=== PATIENT | female | born 1935 | race Caucasian/White ===

== ENCOUNTER → 2016-10-21 | Outpatient (CLI) | payer OTHER ==
[~2016-10-21] MED LIST: ASPEC81 PO; ATEN-175 PO; CHOL100010 PO; GLC500 PO; GLIP10TA9 PO; HYDR12.55 PO; INSUINJ4 SQ; LOSA1TAB38 PO; OMEG10007 PO; PRLSR20 PO; TRVOPS OP
--- NOTE | 2016-10-21 14:09 | MAMMOGRAPHY REPORT ---
BILATERAL DIGITAL SCREENING MAMMOGRAM WITH CAD: 10/21/2016 TECHNIQUE: Current study was also evaluated with a Computer Aided Detection (CAD) system. Bilatera l CC and MLO views were obtained. COMPARISON: Comparison is made to exams dated: 10/19/2015 mammogram, 10/17/2014 mammogram, 10/12/2011 m ammogram, 10/16/2013 mammogram, 10/15/2012 mammogram, and 10/11/2010 mammogram - [facility] enter. BREAST COMPOSITION: There are scattered areas of fibroglandular density in both breasts. FINDINGS: No suspicious masses, calcifications, or areas of architectural distortion are noted in e ither breast. There has been no significant interval change compared to prior exams. Scattered bilat eral benign-appearing calcifications are not significantly changed. IMPRESSION: ACR BI-RADS CATEGORY 2: BENIGN There is no mammographic evidence of malignancy. A 1 year screening mammogram is recommended. The p atient will receive written notification of the results. Approximately 10% of breast cancers are not detected with mammography. A negative mammographic repor t should not delay biopsy if a clinically suggestive mass is present. Kylie Lowery M.D. ah/:10/21/2016 12:03:34 Signal Worker Helper: Debi NUGENT(Pamela)(Asim), [facility] letter sent: Normal 1/2 BI-RADS Code: ACR BI-RADS Category 2: Benign
== END | disposition home or self-care (01) ==
LOC: C.MAMM 10:50
PROVIDERS: ATTEND Family Medicine
DX: Z12.31 Encounter for screening mammogram for malignant neoplasm of breast (principal)

== ENCOUNTER 2017-09-20 14:10 | Emergency (ER) | payer OTHER ==
[~2017-09-20] VITALS: Ht 157.5 cm; Wt 83.0 kg
[2017-09-20 14:15] VITALS: TEMP 36.3; Ht 157.5 cm; Wt 83.0 kg
[2017-09-20] MEDS ORDERED: GI COCKTAIL PO STA (14:53)
[2017-09-20] MEDS ORDERED: LOSA100T65 PO (14:56)
[2017-09-20] MEDS ORDERED: GLIP10TA10 PO (14:56)
[2017-09-20] MEDS ORDERED: ATEN-175 PO (14:56)
[2017-09-20] MEDS ORDERED: ACET-1311 PO (14:56)
[2017-09-20] MEDS ORDERED: PRLSR20 PO (14:56)
[2017-09-20] MEDS ORDERED: INSDGIPEN SC (14:56)
[2017-09-20] MEDS ORDERED: ASPI81TA28 PO (14:56)
[2017-09-20] MEDS ORDERED: HYDR12.56 PO (14:56)
[2017-09-20] MEDS ORDERED: GLC/500 PO (14:56)
[2017-09-20] MEDS ORDERED: CHOL100010 PO (14:56)
[2017-09-20] MEDS ORDERED: FAMOTIDINE 20 MG TAB PO ONE (15:00)
--- NOTE | 2017-09-20 15:06 | EMERGENCY ROOM VISIT NOTE ---
History Report prepared by Hiram: Florin Holguin Under the Supervision of: Dr. Raymon Sanchez M.D. First contact with patient: 14:37 Chief Complaint: ABDOMINAL PAIN Stated Complaint: EPIGASTRIC PAIN /FEELING OF A LUMP IN THROAT Nursing Triage Summary: pt ot the ED with c/o lump in throat and esophagel pain that started a couple weeks that got worse yesterday no SOB no nausea no arm pain no cardiac hx has difficulty swallowing intermittantly and decreased eating per daughter in law History of Present Illness The patient is an 82 year old white female with past medical history of hypertension and diabetes, who presents to the Emergency Room with complaints of a "lump in my throat." Patient states she has been complaining of some discomfort when she swallows. Patient states that she feels like there is a lump in her throat. She has noted some pains when she does. Patient states she 's not sure if this is chest pain. Patient denies any exertional symptoms, nausea, vomiting, diaphoresis. No prior history of DVT or PE. Patient is a nonsmoker. Patient denies any infectious symptoms. They did discuss this with the primary care however they referred him here to rule out cardiac symptoms. Patient denies any orthopnea, or dyspnea on exertion. Patient denies any prior history of cancers. No recent changes in medications. Source of History: patient Position: throat Quality: other (lump) Timing: worsening Associated Symptoms: No diaphoresis, No nausea, No vomiting Review of Systems See HPI for pertinent positives and negatives. A total of ten systems were reviewed and were otherwise negative. Past Medical & Surgical Medical Problems: (1) Diabetes mellitus (2) Hypertension Diabetes mellitus Hypertension Family History Not pertinent secondary to age. Social History Alcohol Use: none Drug Use: none Marital Status: Occupation Status: retired Current/Historical Medications Scheduled Aspirin (Aspirin Ec), 81 MG PO Q2D Atenolol (Tenormin), 100 MG PO DAILY Cholecalciferol (Vitamin D), 1,000 UNITS PO DAILY Glipizide (Glipizide), 10 MG PO BID Hydrochlorothiazide (Hctz), 12.5 MG PO DAILY Insulin Glargine (Lantus Solostar), 22 UNITS SC HS Losartan Potassium (Cozaar), 100 MG PO DAILY Metformin Hcl (Glucophage), 500 MG PO BID Scheduled PRN Acetaminophen (Tylenol), 325-650 MG PO UD PRN for Pain Omeprazole (Prilosec), 20 MG PO DAILY PRN for Heartburn Allergies Coded Allergies: Ezetimibe (Unverified Allergy, Intermediate, ., 09/20/17) Atorvastatin (Unverified Allergy, Mild, 09/20/17) Chlorthalidone (Unverified Allergy, Mild, 10/09/09) Diltiazem (Unverified Allergy, Mild, 09/20/17) Ibuprofen (Unverified Allergy, Mild, 10/09/09) Lisinopril (Unverified Allergy, Mild, 09/20/17) Naproxen (Unverified Allergy, Mild, 10/09/09) NSAIDs (Verified Allergy, Unknown, ., 01/07/11) Simvastatin (Unverified Allergy, Unknown, ., 09/20/17) Physical Exam Vital Signs Date Time Temp Pulse Resp B/P (MAP) Pulse Ox O2 Delivery O2 Flow Rate FiO2 09/20/17 16:25 75 20 156/87 99 Room Air 09/20/17 16:00 81 22 98 Room Air 09/20/17 15:23 71 09/20/17 15:15 97 Room Air 09/20/17 14:15 36.3 81 20 206/83 97 Room Air Physical Exam GENERAL: Awake, alert, well-appearing, NAD HENT: Normocephalic, atraumatic. Posterior pharynx clear with no tonsillar or uvular deviation EYES: Normal conjunctiva. Sclera non-icteric. NECK: Supple. No nuchal rigidity. FROM. Non-stridulous. No neck pain RESPIRATORY: CTAB, no rhonchi, wheezing, crackles CARDIAC: RRR, no MRG ABDOMEN: Soft, NTND, BS+ MSK: No chest wall TTP, no LE edema NEURO: GCS 15, CN 2-12 intact, moves all 4s on command SKIN: No rash or jaundice noted. Medical Decision & Procedures ER Provider Diagnostic Interpretation: Radiology results as stated below per my review and radiologist interpretation: CHEST ONE VIEW PORTABLE CLINICAL HISTORY: CHEST PAIN dyspnea COMPARISON STUDY: 12/19/2012 FINDINGS: The bones soft tissues and hemidiaphragms are normal. The cardiomediastinal silhouette is normal. The lungs are clear. The pulmonary vasculature is normal. IMPRESSION: Negative chest. The above report was generated using voice recognition software. It may contain grammatical, syntax or spelling errors. Electronically signed by: Johnie Deleon M.D. 09/20/2017 3:33 PM Dictated Date/Time: 09/20/2017 3:32 PM Laboratory Results 09/20/17 15:15 Red Blood Count 4.20, Mean Corpuscular Volume 88.3, Mean Corpuscular Hemoglobin 30.0, Mean Corpuscular Hemoglobin Concent 34.0, Mean Platelet Volume 9.4, Neutrophils (%) (Auto) 69.7, Lymphocytes (%) (Auto) 21.9, Monocytes (%) (Auto) 5.8, Eosinophils (%) (Auto) 1.7, Basophils (%) (Auto) 0.6, Neutrophils # (Auto) 8.01, Lymphocytes # (Auto) 2.52, Monocytes # (Auto) 0.67, Eosinophils # (Auto) 0.19, Basophils # (Auto) 0.07 09/20/17 15:15 Test 09/20/17 15:15 White Blood Count 11.50 K/uL (4.8-10.8) Red Blood Count 4.20 M/uL (4.2-5.4) Hemoglobin 12.6 g/dL (12.0-16.0) Hematocrit 37.1 % (37-47) Mean Corpuscular Volume 88.3 fL (80-100) Mean Corpuscular Hemoglobin 30.0 pg (25-34) Mean Corpuscular Hemoglobin Concent 34.0 g/dl (32-36) Platelet Count 301 K/uL (130-400) Mean Platelet Volume 9.4 fL (7.4-10.4) Neutrophils (%) (Auto) 69.7 % Lymphocytes (%) (Auto) 21.9 % Monocytes (%) (Auto) 5.8 % Eosinophils (%) (Auto) 1.7 % Basophils (%) (Auto) 0.6 % Neutrophils # (Auto) 8.01 K/uL (1.4-6.5) Lymphocytes # (Auto) 2.52 K/uL (1.2-3.4) Monocytes # (Auto) 0.67 K/uL (0.11-0.59) Eosinophils # (Auto) 0.19 K/uL (0-0.5) Basophils # (Auto) 0.07 K/uL (0-0.2) RDW Standard Deviation 39.8 fL (36.4-46.3) RDW Coefficient of Variation 12.5 % (11.5-14.5) Immature Granulocyte % (Auto) 0.3 % Immature Granulocyte # (Auto) 0.04 K/uL (0.00-0.02) Prothrombin Time 10.0 SECONDS (9.0-12.0) Prothromb Time International Ratio 1.0 (0.9-1.1) Activated Partial Thromboplast Time 25.5 SECONDS (21.0-31.0) Partial Thromboplastin Ratio 1.0 Anion Gap 6.0 mmol/L (3-11) Est Creatinine Clear Calc Drug Dose 34.9 ml/min Estimated GFR () 47.4 Estimated GFR (Non- 40.9 BUN/Creatinine Ratio 20.0 (10-20) Calcium Level 9.2 mg/dl (8.5-10.1) Total Bilirubin 0.6 mg/dl (0.2-1) Direct Bilirubin < 0.1 mg/dl (0-0.2) Aspartate Amino Transf (AST/SGOT) 20 U/L (15-37) Alanine Aminotransferase (ALT/SGPT) 30 U/L (12-78) Alkaline Phosphatase 74 U/L (45-117) Troponin I < 0.015 ng/ml (0-0.045) Pro-B-Type Natriuretic Peptide 199 pg/ml (0-1800) Total Protein 7.7 gm/dl (6.4-8.2) Albumin 3.1 gm/dl (3.4-5.0) Lipase 134 U/L (73-393) Laboratory results reviewed by me Medications Administered Medications (Trade) Dose Ordered Sig/Dontrell Route Start Time Stop Time Status Last Admin Dose Admin Famotidine (Pepcid Tab) 20 mg NOW ONCE PO 09/20/17 15:00 09/20/17 15:01 DC 09/20/17 15:25 20 MG Lidocaine HCl (Viscous Lidocaine 2% Soln) 20 ml STK-MED ONCE .ROUTE 09/20/17 15:21 09/20/17 15:22 DC 09/20/17 15:26 20 ML Al Hydroxide/Mg Hydroxide (Maalox Susp) 30 ml STK-MED ONCE .ROUTE 09/20/17 15:21 09/20/17 15:22 DC 09/20/17 15:26 30 ML Sodium Chloride 500 ml @ 999 mls/hr Q31M STAT IV 09/20/17 15:49 09/20/17 16:19 DC 09/20/17 16:00 999 MLS/HR ECG Indication: other (Throat Pain ) Rate (beats per minute): 70 Rhythm: normal sinus Findings: RBBB (Incomplete), T-wave inversion (Lead 3), other (Normal Intervals , LAD, no other STS, TWI.) Comparison ECG Date: 01/11/2011 Change: no significant change (RBBB is present in previous) Change: Patient's electrocardiogram interpreted by me. ED Course 1442: The patient was evaluated in room C6. A complete history and physical exam was performed. 1711: I checked on the patient at this time. She was doing well. 1733: I discussed the case with Dr. Beatris CAMARENA at this time. He will follow up with the patient in the office this week. He will scope the patient. The patient will be discharged home. Medical Decision The patient is a 82 year old female who presents to the Emergency Room with complaints of a "lump in my throat." Prior records/ancillary studies reviewed. Triage Nursing notes reviewed. Differential diagnosis: Etiologies such as viral syndrome, tonsillitis, streptococcal pharyngitis, mononucleosis, peritonsillar abscess, retropharyngeal abscess, otitis, pneumonia , influenza, as well as others were entertained. Patient was seen and evaluated the bedside. Patient was complaining of some discomfort with swallowing. Patient states this is been ongoing for several weeks. Patient has had a mildly decreased appetite. Patient does complain of some burning in her mouth. Patient is unsure as to whether not this pain is with position. Patient denies any orthopnea, lower extremity swelling, history of DVT or PE, or infectious symptoms. Patient did have blood work completed, EKG, troponin, chest x-ray. Patient also did have a CT soft tissue neck to look for possible sources of odynophagia or dysphagia. Patient's blood work is fairly unremarkable. Patient had a negative chest x-ray. Patient's EKG is nonischemic and has a negative troponin. I do not believe that this is atypical chest pain. Trop is neg and symptoms ongoing x 3-4 weeks and not exertional. Patient case was discussed with the on-call industrial gas fitter. He agreed to see her in clinic. She may benefit from a scope. Patient was told that she also needs to follow up with her PCP. I did speak with case management who agreed help arrange a follow-up appointment. Patient was deemed suitable for outpatient follow-up treatment at this time. Patient was given strict follow-up, discharge, and return precautions. All questions were answered. Patient was deemed suitable for outpatient follow-up at this time. Patient agreed with the plan of care and was safely discharged home. The chart was completed utilizing [employer] Speech voice recognition software. Grammatical errors, random word insertions, pronoun errors, and incomplete sentences are an occasional consequence of this system due to software limitations, ambient noise, and hardware issues. Any formal questions or concerns about the content, text, or information contained within the body of this dictation should be directly addressed to the physician for clarification. Blood Pressure Screening Patient's blood pressure: Elevated blood pressure Blood pressure disposition: Referred to PCP Consults Time Called: 1715 Consulting Physician: Dr. Beatris CAMARENA Returned Call: 1736 I discussed the case with Dr. Beatris CAMARENA at this time. He will follow up with the patient in the office this week. He will scope the patient. Impression Primary Impression: Odynophagia Additional Impression: Vallecular cyst Scribe Attestation The scribe's documentation has been prepared under my direction and personally reviewed by me in its entirety. I confirm that the note above accurately reflects all work, treatment, procedures, and medical decision making performed by me. Departure Information Dispostion Home / Self-Care Referrals Ernesto Alston D.O. (PCP) Khanh Spear M.D. Patient Instructions My [facility], Sore Throat - [facility] Additional Instructions Please return to the emergency department if you have worsening or recurrent symptoms not amenable to at-home treatment. Please call for a follow-up appointment with her primary care physician. Please take your medications as prescribed. If you have other concerns and/or complaints please feel free to also call your primary care physician's office or return the ED for further evaluation, management, and treatment. Please keep your follow-up appointments with Dr. Spear. The rehabilitation case coordinator will help arrange this for you. Please follow-up with your primary care physician. Take your medications as prescribed. You have been examined and treated today on an emergency basis only. This is not a substitute for, or an effort to provide, complete comprehensive medical care. It is impossible to recognize and treat all injuries or illnesses in a single emergency department visit. It is therefore important that you follow up closely with [facility], your PCP, and/or your specialist(s). Call as soon as possible for an appointment. Thank you for your time and consideration. I look forward to speaking with you again soon. Please don't hesitate to call us if you have any questions. Problem Qualifiers
[2017-09-20 15:15] VITALS: O2SAT 97
[2017-09-20] MEDS ORDERED: ALUMINUM/MAGNESIUM SUSP 30 ML UDC ONE (15:21)
[2017-09-20] MEDS ORDERED: LIDOCAINE HCL 2% VISC SOLN 20 ML UDC ONE (15:21)
[2017-09-20 15:30] LABS: BASO % 0.6 %; BASO ABS # 0.07 K/uL (0-0.2); EOS % 1.7 %; EOS ABS # 0.19 K/uL (0-0.5); HEMATOCRIT 37.1 % (37-47); HEMOGLOBIN 12.6 g/dL (12.0-16.0); IG# 0.04 K/uL (0.00-0.02); LYMPH % 21.9 %; LYMPH ABS # 2.52 K/uL (1.2-3.4); MEAN CELL VOLUME 88.3 fL (80-100); MEAN PLATELET VOLUME 9.4 fL (7.4-10.4); MONO % 5.8 %; MONO ABS # 0.67 K/uL (0.11-0.59); NEUT % 69.7 %; NEUT ABS # 8.01 K/uL (1.4-6.5); PLATELET COUNT 301 K/uL (130-400); RED CELL DISTRIBUTION WIDTH CV 12.5 % (11.5-14.5); RED CELL DISTRIBUTION WIDTH SD 39.8 fL (36.4-46.3)
--- NOTE | 2017-09-20 15:34 | DIAGNOSTIC IMAGING REPORT ---
CHEST ONE VIEW PORTABLE CLINICAL HISTORY: CHEST PAIN dyspnea COMPARISON STUDY: 12/19/2012 FINDINGS: The bones soft tissues and hemidiaphragms are normal. The cardiomediastinal silhouette is normal. The lungs are clear. The pulmonary vasculature is normal. IMPRESSION: Negative chest. The above report was generated using voice recognition software. It may contain grammatical, syntax or spelling errors. Electronically signed by: Johnie Deleon M.D. 09/20/2017 3:33 PM Dictated Date/Time: 09/20/2017 3:32 PM
[2017-09-20 15:38] LABS: PTT PATIENT 25.5 SECONDS (21.0-31.0)
[2017-09-20 15:46] LABS: ALBUMIN 3.1 gm/dl (3.4-5.0); ALT/SGPT 30 U/L (12-78); AST/SGOT 20 U/L (15-37); BLOOD UREA NITROGEN 24 mg/dl (7-18); CALCIUM 9.2 mg/dl (8.5-10.1); CARBON DIOXIDE 24 mmol/L (21-32); CREATININE 1.22 mg/dl (0.60-1.20); GLUCOSE 171 mg/dl (70-99); LIPASE 134 U/L (73-393); SODIUM 135 mmol/L (136-145)
[2017-09-20] MEDS ORDERED: SODIUM CHLORIDE 0.9% 500ML 500 ML IV STA (15:49)
[2017-09-20 15:51] LABS: ALKALINE PHOSPHATASE 74 U/L (45-117); TOTAL PROTEIN 7.7 gm/dl (6.4-8.2)
[2017-09-20] MEDS ORDERED: OPTIRAY 320 IV PRN (16:00)
--- NOTE | 2017-09-20 16:36 | DIAGNOSTIC IMAGING REPORT ---
SOFT TISSUE NECK WITH CLINICAL HISTORY: odynophagia, lump in throat, 3 weeks symptoms, decreased eating TECHNIQUE: Transaxial acquisition with multi axial reformatted images COMPARISON STUDY: None FINDINGS: Potential 8 mm polypoid lesion within the right vallecula. All remaining components of the soft tissue neck are unremarkable. All major salivary glands are unremarkable. Several small cervical nodes are present none of which exceed 9 mm. Glottic and subglottic regions are considered unremarkable. Subtle in homogeneity of the thyroid. Minimal scarring of both pulmonary apices. IMPRESSION: 1. Potential 8 mm polypoid lesion within the right vallecula versus technical artifact due to respiratory variation. 2. Endoscopic evaluation is suggested as follow-up. The above report was generated using voice recognition software. It may contain grammatical, syntax or spelling errors. Electronically signed by: Johnie Deleon M.D. 09/20/2017 4:35 PM Dictated Date/Time: 09/20/2017 4:29 PM
[2017-09-20 17:57] VITALS: BP 155/81; PULSE 70; O2SAT 99
== END 2017-09-20 17:59 | disposition home or self-care (01) ==
LOC: C.EDB 14:13 → C.EDC 17:59
DX: R13.10 Dysphagia, unspecified (principal); J38.7 Other diseases of larynx; E11.9 Type 2 diabetes mellitus without complications; I10 Essential (primary) hypertension; Z79.4 Long term (current) use of insulin; Z79.82 Long term (current) use of aspirin; Z79.84 Long term (current) use of oral hypoglycemic drugs; Z79.899 Other long term (current) drug therapy

== ENCOUNTER → 2017-10-23 | Outpatient (CLI) | payer OTHER ==
[~2017-10-23] MED LIST changes: +ACET-1311 PO; -ASPEC81 PO; +ASPI81TA28 PO; +GLC/500 PO; -GLC500 PO; +GLIP10TA10 PO; -GLIP10TA9 PO; -HYDR12.55 PO; +HYDR12.56 PO; +INSDGIPEN SC; -INSUINJ4 SQ; +LOSA100T65 PO; -LOSA1TAB38 PO; -OMEG10007 PO; -TRVOPS OP
--- NOTE | 2017-10-24 15:25 | MAMMOGRAPHY REPORT ---
BILATERAL DIGITAL SCREENING MAMMOGRAM TOMOSYNTHESIS WITH CAD: 10/23/2017 CLINICAL HISTORY: Routine screening. Patient has no complaints. TECHNIQUE: Breast tomosynthesis in addition to standard 2D mammography was performed. Current study was also evaluated with a Computer Aided Detection (CAD) system. COMPARISON: Comparison is made to exams dated: 10/21/2016 mammogram, 10/19/2015 mammogram, 10/17/2014 m ammogram, 10/16/2013 mammogram, 10/15/2012 mammogram, and 10/12/2011 mammogram - [facility] nter. BREAST COMPOSITION: There are scattered areas of fibroglandular density in both breasts. FINDINGS: There are mild vascular calcifications and scattered benign-appearing microcalcifications i n the breasts. No suspicious mass, architectural distortion or cluster of microcalcifications is see n. IMPRESSION: ACR BI-RADS CATEGORY 1: NEGATIVE There is no mammographic evidence of malignancy. A 1 year screening mammogram is recommended. The pa tient will receive written notification of the results. Approximately 10% of breast cancers are not detected with mammography. A negative mammographic report should not delay biopsy if a clinically suggestive mass is present. Marla Montaño M.D. ay/:10/23/2017 16:29:42 Brickmason Helper: Debi NUGENT(Pamela)(Asim), [facility] letter sent: Normal 1/2 BI-RADS Code: ACR BI-RADS Category 1: Negative
== END | disposition home or self-care (01) ==
LOC: C.MAMM 10:35
PROVIDERS: ATTEND Family Medicine
DX: Z12.31 Encounter for screening mammogram for malignant neoplasm of breast (principal)

== ENCOUNTER 2019-09-04 17:57 | Inpatient (IN) ==
[2019-09-04] MEDS ORDERED: ACETAMINOPHEN 500 MG TAB PO STA (18:21)
[2019-09-04] MEDS ORDERED: SODIUM CHLORIDE 0.9% 1000ML 1,000 ML IV SCH ×2 (18:30→22:06)
[2019-09-04 19:00] LABS: Appearance Urine Cloudy (Clear); Bacteria Urine Automated 3+ (Negative); Bilirubin Urine Negative (Negative); Blood Urine 1+ (Negative); Color Urine Yellow; Epithelial Cell Urine Auto 20-30 /lpf (0-5); Glucose Urine UA Negative (Negative); Ketones Urine Negative (Negative); Leukocyte Esterase Urine Trace (Negative); Nitrite Urine Negative (Negative); Protein Urine 2+ (Negative); Specific Gravity Urine 1.014 (1.000-1.030); Urobilinogen Urine Negative (Negative)
[2019-09-04 19:04] LABS: Basophils # (auto) 0.02 K/uL (0-0.2); Basophils % (auto) 0.2 %; Eosinophils # (auto) 0.01 K/uL (0-0.5); Eosinophils % (auto) 0.1 %; Hematocrit (blood only) 34.5 % (37-47); Hemoglobin 11.6 g/dL (12.0-16.0); Immature Granulocytes # (auto) 0.04 K/uL (0.00-0.02); Immature Granulocytes % (auto) 0.3 %; Lymphocytes # (auto) 0.78 K/uL (1.2-3.4); Lymphocytes % (auto) 5.9 %; Mean Corpuscular Hemoglobin 29.6 pg (25-34); Mean Corpuscular Hgb Conc 33.6 g/dL (32-36); Mean Platelet Volume 9.7 fL (7.4-10.4); Monocytes # (auto) 1.18 K/uL (0.11-0.59); Monocytes % (auto) 8.9 %; Neutrophils # (auto) 11.19 K/uL (1.4-6.5); Neutrophils % (auto) 84.6 %; Platelet Count 225 K/uL (130-400); RDW Coefficient of Variation 12.5 % (11.5-14.5); Red Blood Count 3.92 M/uL (4.2-5.4); White Blood Count 13.22 K/uL (4.8-10.8)
[2019-09-04 19:16] LABS: Base Excess VBG -1.4 mEq/L; INR 1.1 (0.9-1.1); Oxygen Saturation VBG 80.5 %; Prothrombin Time 11.5 Seconds (9.0-12.0); pH VBG 7.45 (7.36-7.41)
[2019-09-04 19:20] LABS: Calcium 8.5 mg/dl (8.5-10.1); Chloride 103 mmol/L (98-107); Potassium 3.9 mmol/L (3.5-5.1); Sodium 133 mmol/L (136-145)
--- NOTE | 2019-09-04 19:20 | CT Scan Report ---
CT SCAN OF THE BRAIN WITHOUT IV CONTRAST CLINICAL HISTORY: Change in mental status. COMPARISON STUDY: No priors. TECHNIQUE: Unenhanced axial CT scan of the brain is performed from the vertex to the skull base. A do se lowering technique was utilized adhering to the principles of ALARA. CT DOSE: 537.48 mGy.cm FINDINGS: Brain parenchyma: There are age-related involutional changes noting mild subcortical and periventric ular microangiopathic change. There is no hemorrhage, mass effect, or evidence of acute territorial i schemia by CT criteria. Lomax-white matter differentiation is preserved. No extra-axial fluid collecti on is seen. Ventricles, sulci, cisterns: Prominent secondary to involutional change. Intracranial vasculature: There is atherosclerotic calcification of the cavernous carotid and vertebr al arteries. Calvarium: Unremarkable. Sinuses and mastoids: The visualized paranasal sinuses are clear. The mastoid air cells are well pneu matized. Orbits: The bony orbits are grossly intact. IMPRESSION: There is no hemorrhage, mass effect, or evidence of acute territorial ischemia by CT crit oleg. ACT 112: Negative or not required by law. Electronically signed by: Paco Chicas M.D. 09/04/2019 7:18 PM
[2019-09-04 19:23] LABS: Alanine Aminotransferase 24 U/L (12-78); Aspartate Aminotransferase 17 U/L (15-37); Blood Urea Nitrogen 30 mg/dl (7-18); Carbon Dioxide 22 mmol/L (21-32); Est GFR (African American) 32.7; Est GFR (Non-African American) 28.2; Glucose 193 mg/dl (70-99); Lipase 75 U/L (73-393)
--- NOTE | 2019-09-04 19:23 | XRay Report ---
SINGLE VIEW CHEST CLINICAL HISTORY: Generalized weakness. Fever. FINDINGS: An AP, portable, upright chest radiograph is compared to study dated 07/12/2018. Correlation is made with chest CT dated 01/10/2008. The examination is degraded by portable technique and patient rotation. The heart is mildly enlarged noting atherosclerotic calcification of the thoracic ureter. The pulmonary vasculature is noncongested. Chronic interstitial thickening is similar to previous. T here is mild bibasilar scarring/atelectasis. The lungs and pleural spaces are otherwise clear. No pne umothorax is seen. The skeletal structures are osteopenic. The bony thorax is grossly intact. IMPRESSION: Mild cardiac enlargement with no active disease in the chest. ACT 112: Negative or not required by law. Electronically signed by: Paco Chicas M.D. 09/04/2019 7:22 PM
[2019-09-04 19:32] LABS: Influenza A virus by PCR Neg for Influ A (Neg); Influenza B virus by PCR Neg for Influ B (Neg)
[2019-09-04 19:34] LABS: Albumin Globulin Ratio 0.6 (0.9-2); Alkaline Phosphatase 86 U/L (45-117); Bilirubin,Total 0.7 mg/dl (0.2-1); Globulin 4.7 gm/dl (2.5-4.0); Magnesium 1.5 mg/dl (1.8-2.4); Total Protein 7.7 gm/dl (6.4-8.2); Troponin I < 0.015 ng/ml (0-0.045)
[2019-09-04] MEDS ORDERED: MAGNESIUM SULFATE / D5W 1 GM/100 ML BAG IV ONE (19:50)
[2019-09-04] MEDS ORDERED: cefTRIAXone SODIUM 2,000 MG/70 ML BAG IV STA (19:50)
--- NOTE | 2019-09-04 19:58 | Emergency Department Note ---
Entered by Mireille Woodruff acting as a scribe for History of Present Illness General Chief complaint: Hyperglycemia Stated complaint: HIGHBLOOD SUGAR, PAIN, SLEEPY, CONFUSED Time Seen by Provider: 09/04/19 18:11 Source: patient and family History of Present Illness Onset (ago): hour(s) (today) Location: head (confusion) Radiation: other (neck pain that radiates to head) Pain Consistency: + other (persistent) Maximum Pain Intensity: 8 Quality: + other (cramping) Associated symptoms: + confusion, + loss of appetite, + weakness and + other (Positive lower extremity cramping, sleeping more than usual, hyperglycemia, neck pain. Negative abdominal pain, back pain, sore throat, rhinorrhea, abnormal urinary symptoms.); no chest pain and no shortness of breath Treatments prior to arrival: none The patient is an 84 year old female presenting to the Emergency Department complaining of persistent confusion starting today. The patients family reports that the patient is confused. They state that the patient has no appetite and has been falling asleep all day. They explain that the patients lower extremities has been cramping. They note that the patient is weak. They add that the patients blood sugar is high. The patient reports that she has neck pain that is radiating to her head and that she has been experiencing this pain for a month. She states that she has not had a bowel movement today. She notes that she hasnt taken any medications for her symptoms [employer]. She adds that she sees Dr. Alston PCP. The patient denies chest pain, shortness of breath, abdominal pain, back pain, sore throat, rhinorrhea, abnormal urinary symptoms and medication non-compliance. Home Medications Home Medications Medication Instructions Recorded Confirmed Type amoxicillin 2,000 mg PO UD 07/12/18 09/04/19 History aspirin 81 mg PO DAILY 07/12/18 09/04/19 History atenolol 100 mg PO QAM 07/12/18 09/04/19 History cholecalciferol (vitamin D3) 1,000 unit PO QAM 07/12/18 09/04/19 History [Vitamin D3] glipizide 10 mg PO BID 07/12/18 09/04/19 History hydrochlorothiazide 12.5 mg PO QAM 07/12/18 09/04/19 History insulin glargine [Lantus Solostar 22 unit SUBCUT HS 07/12/18 09/04/19 History U-100 Insulin] losartan 100 mg PO QAM 07/12/18 09/04/19 History omeprazole 20 mg PO QAM 07/12/18 09/04/19 History acetaminophen [Tylenol] 650 mg PO Q6H PRN 09/04/19 09/04/19 History cyclobenzaprine 5 mg PO BID PRN 09/04/19 09/04/19 History Allergies Allergy/AdvReac Type Severity Reaction Status Date / Time ezetimibe Allergy Intermediate . Unverified 09/04/19 19:40 atorvastatin Allergy Mild Unknown Unverified 09/04/19 19:40 chlorthalidone Allergy Mild Unknown Unverified 09/04/19 19:40 diltiazem Allergy Mild Unknown Unverified 09/04/19 19:40 ibuprofen Allergy Mild Unknown Unverified 09/04/19 19:40 lisinopril Allergy Mild Unknown Unverified 09/04/19 19:40 naproxen Allergy Mild Unknown Unverified 09/04/19 19:40 NSAIDS (Non-Steroidal Allergy Unknown . Verified 09/04/19 19:40 Anti-Inflamma simvastatin Allergy Unknown . Unverified 09/04/19 19:40 Past Med/Surg History Medical History CKD (chronic kidney disease), stage III (Chronic) DM type 2 (diabetes mellitus, type 2) (Chronic) Dyslipidemia (Chronic) GERD (gastroesophageal reflux disease) (Chronic) Hypertension (Chronic) Pulmonary nodule (Chronic) Rectal bleeding (Chronic) Surgical History History of appendectomy (Chronic) History of bowel resection (Chronic) History of hysterectomy (Chronic) History of total left knee replacement (Chronic) Hx laparoscopic cholecystectomy (Chronic) Family History Other No significant family history Social History Preferred Language: Com[place]an Communication Ability: Effective Insurance Sales Specialist Required: No Beliefs That Will Affect Care: None Current Living Situation: Spouse Feels Safe at Home: Yes Smoking Status: Never smoker Second Hand Exposure: Yes ( smoked, quit 30+ years ago) ; Hx Alcohol Use: No Hx Substance Use: No Review of Systems See HPI for pertinent positives & negatives. and A total of 10 systems reviewed and were otherwise negative Physical Exam Vital Signs Vital Signs - 24 hr 09/04/19 18:08 09/04/19 19:06 09/04/19 20:29 Temperature 38.1 C H 36.9 C Temperature Source Oral Oral Pulse Rate 80 Pulse Rate [Right Finger] 84 69 Respiratory Rate 24 28 H 24 Blood Pressure 189/71 H Blood Pressure [Right Arm] 164/85 H 125/50 L Blood Pressure Mean 110 Blood Pressure Mean [Right Arm] 111 75 Blood Pressure Position Sitting Blood Pressure Position [Right Arm] Sitting Pulse Oximetry 97 95 95 Sepsis Recent Fever Within 48 Hours Yes Sepsis New/Unexplained Change in Mental Status No Sepsis Action Taken by Nursing No Action Required GENERAL: Patient appears fatigued. Awake, alert, in no distress HENT: Normocephalic, atraumatic. Oropharynx unremarkable. TMs clear bilaterally. EYES: Normal conjunctiva. Sclera non-icteric. PERRL. NECK: Supple. No nuchal rigidity. RESPIRATORY: Clear to auscultation. No wheezes. Normal respiratory effort. CARDIAC: Normal rate. Normal rhythm. Extremities warm and well perfused. GI: Soft, non-distended. No tenderness to palpation. No rebound or guarding. RECTAL: Deferred. MUSCULOSKELETAL: Atraumatic. Chest examination reveals no tenderness. LOWER EXTREMITIES: Calves are equal size bilaterally and non-tender. No edema NEURO: Normal sensorium. No sensory or motor deficits noted. No facial droop. SKIN: Warm and dry. No rash or jaundice noted. Course Course 1811: The patient was evaluated in room A12B, and a complete history and physical examination were performed. 1938: I updated the patient and her family at this time on the patient's lab work and imaging studies. 1951: I discussed the patients case with Dr. Yanna Conley hospitalist. He will evaluate the patient for further management. Administered Medications Magnesium Sulfate/Dextrose (Magnesium Sulfate / D5w) 1 gm in 100 mls @ 100 mls/hr IV ONE ONE Stop: 09/04/19 20:49 Last Admin: 09/04/19 19:58 Dose: 100 mls/hr Documented by: [id number] Discontinued Medications Acetaminophen (Tylenol) 1,000 mg PO NOW STA Stop: 09/04/19 18:22 Last Admin: 09/04/19 18:45 Dose: 1,000 mg Documented by: [id number] Sodium Chloride (Nss 1000ml) 1,000 mls @ 999 mls/hr IV .Q1H1M PIOTR Stop: 09/04/19 19:30 Last Infusion: 09/04/19 19:50 Dose: 0 mls/hr Documented by: [id number] Admin: 09/04/19 18:53 Dose: 999 mls/hr Documented by: [id number] Ceftriaxone Sodium (Rocephin) 2,000 mg in 70 mls @ 140 mls/hr IV NOW STA Stop: 09/04/19 20:19 Last Admin: 09/04/19 19:58 Dose: 140 mls/hr Documented by: [id number] Medical Decision Making Differential Diagnosis Differential diagnosis: Etiologies such as viral syndrome, otitis, pharyngitis, pneumonia, influenza, meningitis, urinary tract infection, sepsis, bacteremia, as well as others were entertained. Medical Records Attestation: I reviewed the patient's medical records. Home Medications Current Medication List: was personally reviewed by me Laboratory Data Attestation: I reviewed the patient's lab results. Result diagrams: 09/04/19 18:51 09/04/19 18:51 Lab Results 09/04/19 09/04/19 09/04/19 Range/Units 18:09 18:30 18:40 WBC (4.8-10.8) K/uL RBC (4.2-5.4) M/uL Hgb (12.0-16.0) g/dL Hct (37-47) % MCV (80-100) fL MCH (25-34) pg MCHC (32-36) g/dL RDW Std Deviation (36.4-46.3) fL RDW Coeff of Ilda (11.5-14.5) % Plt Count (130-400) K/uL MPV (7.4-10.4) fL Immature Gran % (Auto) % Neut % (Auto) % Lymph % (Auto) % [place] % (Auto) % Eos % (Auto) % Baso % (Auto) % Immature Gran # (Auto) (0.00-0.02) K/uL Neut # (Auto) (1.4-6.5) K/uL Lymph # (Auto) (1.2-3.4) K/uL [place] # (Auto) (0.11-0.59) K/uL Eos # (Auto) (0-0.5) K/uL Baso # (Auto) (0-0.2) K/uL PT (9.0-12.0) Seconds INR (0.9-1.1) VBG pH (7.36-7.41) VBG pCO2 (38-50) mmHg VBG pO2 mmHg VBG HCO3 mmol/L VBG O2 Saturation % VBG Base Excess mEq/L Barometric Pressure mm/Hg Sodium (136-145) mmol/L Potassium (3.5-5.1) mmol/L Chloride (98-107) mmol/L Carbon Dioxide (21-32) mmol/L Anion Gap (3-11) BUN (7-18) mg/dl Creatinine (0.6-1.2) mg/dl Est Cr Clr Drug Dosing Est GFR ( Amer) Est GFR (Non-Af Amer) BUN/Creatinine Ratio (10-20) Glucose (70-99) mg/dl POC Glucose 188 H (70-99) Lactate (0.4-2.0) mmol/L Calcium (8.5-10.1) mg/dl Magnesium (1.8-2.4) mg/dl Total Bilirubin (0.2-1) mg/dl AST (15-37) U/L ALT (12-78) U/L Alkaline Phosphatase (45-117) U/L Troponin I (0-0.045) ng/ml Total Protein (6.4-8.2) gm/dl Albumin (3.4-5.0) gm/dl Globulin (2.5-4.0) gm/dl Albumin/Globulin Ratio (0.9-2) Lipase (73-393) U/L Procalcitonin (0-0.5) ng/ml TSH (0.300-4.500) uIu/ml Urine Color Yellow Urine Appearance Cloudy A (Clear) Urine pH 5.0 (4.5-7.5) Ur Specific [place] 1.014 (1.000-1.030) Urine Protein 2+ H (Negative) Urine Glucose (UA) Negative (Negative) Urine Ketones Negative (Negative) Urine Blood 1+ H (Negative) Urine Nitrite Negative (Negative) Urine Bilirubin Negative (Negative) Urine Urobilinogen Negative (Negative) Ur Leukocyte Esterase Trace H (Negative) Urine WBC (Auto) 10-30 H (0-5) /hpf Urine RBC (Auto) 5-10 H (0-4) /hpf U Hyaline Cast (Auto) 1-5 (0-5) /lpf U Epithel Cells (Auto) 20-30 H (0-5) /lpf Urine Bacteria (Auto) 3+ H (Negative) Influenza Type A (PCR) Neg for Influ A (Neg) Influenza Type B (PCR) Neg for Influ B (Neg) 09/04/19 09/04/19 09/04/19 Range/Units 18:51 18:51 18:51 WBC 13.22 H (4.8-10.8) K/uL RBC 3.92 L (4.2-5.4) M/uL Hgb 11.6 L (12.0-16.0) g/dL Hct 34.5 L (37-47) % MCV 88.0 (80-100) fL MCH 29.6 (25-34) pg MCHC 33.6 (32-36) g/dL RDW Std Deviation 40.0 (36.4-46.3) fL RDW Coeff of Ilda 12.5 (11.5-14.5) % Plt Count 225 (130-400) K/uL MPV 9.7 (7.4-10.4) fL Immature Gran % (Auto) 0.3 % Neut % (Auto) 84.6 % Lymph % (Auto) 5.9 % [place] % (Auto) 8.9 % Eos % (Auto) 0.1 % Baso % (Auto) 0.2 % Immature Gran # (Auto) 0.04 H (0.00-0.02) K/uL Neut # (Auto) 11.19 H (1.4-6.5) K/uL Lymph # (Auto) 0.78 L (1.2-3.4) K/uL [place] # (Auto) 1.18 H (0.11-0.59) K/uL Eos # (Auto) 0.01 (0-0.5) K/uL Baso # (Auto) 0.02 (0-0.2) K/uL PT 11.5 (9.0-12.0) Seconds INR 1.1 (0.9-1.1) VBG pH (7.36-7.41) VBG pCO2 (38-50) mmHg VBG pO2 mmHg VBG HCO3 mmol/L VBG O2 Saturation % VBG Base Excess mEq/L Barometric Pressure mm/Hg Sodium 133 L (136-145) mmol/L Potassium 3.9 (3.5-5.1) mmol/L Chloride 103 (98-107) mmol/L Carbon Dioxide 22 (21-32) mmol/L Anion Gap 8.0 (3-11) BUN 30 H (7-18) mg/dl Creatinine 1.64 H (0.6-1.2) mg/dl Est Cr Clr Drug Dosing Not Reportable Est GFR ( Amer) 32.7 Est GFR (Non-Af Amer) 28.2 BUN/Creatinine Ratio 18.0 (10-20) Glucose 193 H (70-99) mg/dl POC Glucose (70-99) Lactate (0.4-2.0) mmol/L Calcium 8.5 (8.5-10.1) mg/dl Magnesium 1.5 L (1.8-2.4) mg/dl Total Bilirubin 0.7 (0.2-1) mg/dl AST 17 (15-37) U/L ALT 24 (12-78) U/L Alkaline Phosphatase 86 (45-117) U/L Troponin I < 0.015 (0-0.045) ng/ml Total Protein 7.7 (6.4-8.2) gm/dl Albumin 3.0 L (3.4-5.0) gm/dl Globulin 4.7 H (2.5-4.0) gm/dl Albumin/Globulin Ratio 0.6 L (0.9-2) Lipase 75 (73-393) U/L Procalcitonin (0-0.5) ng/ml TSH 2.390 (0.300-4.500) uIu/ml Urine Color Urine Appearance (Clear) Urine pH (4.5-7.5) Ur Specific [place] (1.000-1.030) Urine Protein (Negative) Urine Glucose (UA) (Negative) Urine Ketones (Negative) Urine Blood (Negative) Urine Nitrite (Negative) Urine Bilirubin (Negative) Urine Urobilinogen (Negative) Ur Leukocyte Esterase (Negative) Urine WBC (Auto) (0-5) /hpf Urine RBC (Auto) (0-4) /hpf U Hyaline Cast (Auto) (0-5) /lpf U Epithel Cells (Auto) (0-5) /lpf Urine Bacteria (Auto) (Negative) Influenza Type A (PCR) (Neg) Influenza Type B (PCR) (Neg) 09/04/19 09/04/19 09/04/19 Range/Units 18:51 18:51 18:51 WBC (4.8-10.8) K/uL RBC (4.2-5.4) M/uL Hgb (12.0-16.0) g/dL Hct (37-47) % MCV (80-100) fL MCH (25-34) pg MCHC (32-36) g/dL RDW Std Deviation (36.4-46.3) fL RDW Coeff of Ilda (11.5-14.5) % Plt Count (130-400) K/uL MPV (7.4-10.4) fL Immature Gran % (Auto) % Neut % (Auto) % Lymph % (Auto) % [place] % (Auto) % Eos % (Auto) % Baso % (Auto) % Immature Gran # (Auto) (0.00-0.02) K/uL Neut # (Auto) (1.4-6.5) K/uL Lymph # (Auto) (1.2-3.4) K/uL [place] # (Auto) (0.11-0.59) K/uL Eos # (Auto) (0-0.5) K/uL Baso # (Auto) (0-0.2) K/uL PT (9.0-12.0) Seconds INR (0.9-1.1) VBG pH 7.45 H (7.36-7.41) VBG pCO2 32 L (38-50) mmHg VBG pO2 44 mmHg VBG HCO3 22 mmol/L VBG O2 Saturation 80.5 % VBG Base Excess -1.4 mEq/L Barometric Pressure 728.8 mm/Hg Sodium (136-145) mmol/L Potassium (3.5-5.1) mmol/L Chloride (98-107) mmol/L Carbon Dioxide (21-32) mmol/L Anion Gap (3-11) BUN (7-18) mg/dl Creatinine (0.6-1.2) mg/dl Est Cr Clr Drug Dosing Est GFR ( Amer) Est GFR (Non-Af Amer) BUN/Creatinine Ratio (10-20) Glucose (70-99) mg/dl POC Glucose (70-99) Lactate 1.5 (0.4-2.0) mmol/L Calcium (8.5-10.1) mg/dl Magnesium (1.8-2.4) mg/dl Total Bilirubin (0.2-1) mg/dl AST (15-37) U/L ALT (12-78) U/L Alkaline Phosphatase (45-117) U/L Troponin I (0-0.045) ng/ml Total Protein (6.4-8.2) gm/dl Albumin (3.4-5.0) gm/dl Globulin (2.5-4.0) gm/dl Albumin/Globulin Ratio (0.9-2) Lipase (73-393) U/L Procalcitonin 0.29 (0-0.5) ng/ml TSH (0.300-4.500) uIu/ml Urine Color Urine Appearance (Clear) Urine pH (4.5-7.5) Ur Specific [place] (1.000-1.030) Urine Protein (Negative) Urine Glucose (UA) (Negative) Urine Ketones (Negative) Urine Blood (Negative) Urine Nitrite (Negative) Urine Bilirubin (Negative) Urine Urobilinogen (Negative) Ur Leukocyte Esterase (Negative) Urine WBC (Auto) (0-5) /hpf Urine RBC (Auto) (0-4) /hpf U Hyaline Cast (Auto) (0-5) /lpf U Epithel Cells (Auto) (0-5) /lpf Urine Bacteria (Auto) (Negative) Influenza Type A (PCR) (Neg) Influenza Type B (PCR) (Neg) 09/04/19 Range/Units 18:51 WBC (4.8-10.8) K/uL RBC (4.2-5.4) M/uL Hgb (12.0-16.0) g/dL Hct (37-47) % MCV (80-100) fL MCH (25-34) pg MCHC (32-36) g/dL RDW Std Deviation (36.4-46.3) fL RDW Coeff of Ilda (11.5-14.5) % Plt Count (130-400) K/uL MPV (7.4-10.4) fL Immature Gran % (Auto) % Neut % (Auto) % Lymph % (Auto) % [place] % (Auto) % Eos % (Auto) % Baso % (Auto) % Immature Gran # (Auto) (0.00-0.02) K/uL Neut # (Auto) (1.4-6.5) K/uL Lymph # (Auto) (1.2-3.4) K/uL [place] # (Auto) (0.11-0.59) K/uL Eos # (Auto) (0-0.5) K/uL Baso # (Auto) (0-0.2) K/uL PT (9.0-12.0) Seconds INR (0.9-1.1) VBG pH (7.36-7.41) VBG pCO2 (38-50) mmHg VBG pO2 mmHg VBG HCO3 mmol/L VBG O2 Saturation % VBG Base Excess mEq/L Barometric Pressure mm/Hg Sodium (136-145) mmol/L Potassium (3.5-5.1) mmol/L Chloride (98-107) mmol/L Carbon Dioxide (21-32) mmol/L Anion Gap (3-11) BUN (7-18) mg/dl Creatinine (0.6-1.2) mg/dl Est Cr Clr Drug Dosing Est GFR ( Amer) Est GFR (Non-Af Amer) BUN/Creatinine Ratio (10-20) Glucose (70-99) mg/dl POC Glucose (70-99) Lactate (0.4-2.0) mmol/L Calcium (8.5-10.1) mg/dl Magnesium Cancelled (1.8-2.4) mg/dl Total Bilirubin (0.2-1) mg/dl AST (15-37) U/L ALT (12-78) U/L Alkaline Phosphatase (45-117) U/L Troponin I (0-0.045) ng/ml Total Protein (6.4-8.2) gm/dl Albumin (3.4-5.0) gm/dl Globulin (2.5-4.0) gm/dl Albumin/Globulin Ratio (0.9-2) Lipase (73-393) U/L Procalcitonin (0-0.5) ng/ml TSH (0.300-4.500) uIu/ml Urine Color Urine Appearance (Clear) Urine pH (4.5-7.5) Ur Specific [place] (1.000-1.030) Urine Protein (Negative) Urine Glucose (UA) (Negative) Urine Ketones (Negative) Urine Blood (Negative) Urine Nitrite (Negative) Urine Bilirubin (Negative) Urine Urobilinogen (Negative) Ur Leukocyte Esterase (Negative) Urine WBC (Auto) (0-5) /hpf Urine RBC (Auto) (0-4) /hpf U Hyaline Cast (Auto) (0-5) /lpf U Epithel Cells (Auto) (0-5) /lpf Urine Bacteria (Auto) (Negative) Influenza Type A (PCR) (Neg) Influenza Type B (PCR) (Neg) Imaging Data Radiologist's Impression: Radiology results as stated below per my review and the radiologist's interpretation: CT SCAN OF THE BRAIN WITHOUT IV CONTRAST CLINICAL HISTORY: Change in mental status. COMPARISON STUDY: No priors. TECHNIQUE: Unenhanced axial CT scan of the brain is performed from the vertex to the skull base. A dose lowering technique was utilized adhering to the principles of ALARA. CT DOSE: 537.48 mGy.cm FINDINGS: Brain parenchyma: There are age-related involutional changes noting mild subcortical and periventricular microangiopathic change. There is no hemorrhage, mass effect, or evidence of acute territorial ischemia by CT criteria. Lomax- white matter differentiation is preserved. No extra-axial fluid collection is seen. Ventricles, sulci, cisterns: Prominent secondary to involutional change. Intracranial vasculature: There is atherosclerotic calcification of the cavernou s carotid and vertebral arteries. Calvarium: Unremarkable. Sinuses and mastoids: The visualized paranasal sinuses are clear. The mastoid air cells are well pneumatized. Orbits: The bony orbits are grossly intact. IMPRESSION: There is no hemorrhage, mass effect, or evidence of acute territorial ischemia by CT criteria. ACT 112: Negative or not required by law. Electronically signed by: Paco Chicas M.D. 09/04/2019 7:18 PM SINGLE VIEW CHEST CLINICAL HISTORY: Generalized weakness. Fever. FINDINGS: An AP, portable, upright chest radiograph is compared to study dated 07/12/2018. Correlation is made with chest CT dated 01/10/2008. The examination is degraded by portable technique and patient rotation. The heart is mildly enlarged noting atherosclerotic calcification of the thoracic ureter. The pulmonary vasculature is noncongested. Chronic interstitial thickening is similar to previous. There is mild bibasilar scarring/atelectasis. The lungs and pleural spaces are otherwise clear. No pneumothorax is seen. The skeletal structures are osteopenic. The bony thorax is grossly intact. IMPRESSION: Mild cardiac enlargement with no active disease in the chest. ACT 112: Negative or not required by law. Electronically signed by: Paco Chicas M.D. 09/04/2019 7:22 PM ECG Data Attestation: I personally reviewed and interpreted this ECG as follows: Indication: + weakness and + other (confusion, neck pain) Rate (beats per minute): 80 Rhythm: + normal sinus ECG Intervals/blocks: + Incomplete right bundle branch block and + Normal QT-c ECG ST segments: no ST depression and no ST elevation ECG Findings: no PVCs Blood Pressure Blood Pressure Findings: Elevated blood pressure Blood Pressure Disposition: further management by hospitalist TERESA Narrative Patient is an 84-year-old female with a past medical history including colitis, GERD, diabetes, CKD, hypertension presenting today with report of nausea, vomiting, mena pain with elevated blood sugar and cough. Patient states at home her is undergoing chemotherapy. Family was also reports she seems increasingly fatigued and a bit confused. Febrile upon arrival. Denies any abdominal symptoms to me abdominal pain nausea or vomiting. Patient states he has a history of these but not currently. Family states he has been getting a bit confused about that. Seems a bit tachypneic and a little bit short of breath. Complains of upper back and mild neck and posterior head pain. No trauma reported. States that over the last day or so she has been sick mainly today. She states that she has a history of some neck and head pain over the past month. Family are unsure if this is true statement or not. She is oriented to the current year. No focal deficit noted. Doubt CVA. Did not take anything prior to arrival. Given Tylenol & IV fluid given here initially. Blood cultures lactate and labs were obtained. CT the head was completed given her complaint of a bit of a headache and some confusion as well as a chest x-ray. CT head is unremarkable. EKG obtained as well as troponin though low suspicion for ACS and this is negative. Flu swab was sent. Blood sugar was noted to be elevated here but only minimally. Laboratory studies do show evidence of leukocytosis VBG shows no significant acidosis or hypercarbia. Urinalysis with some contaminated findings but is somewhat suspect. Urine culture will be sent. No active signs of pneumonia on the chest x-ray. Kidney function appears near baseline. Some slight hyponatremia is noted. No evidence of pancreatitis or hepatitis. Troponin is negative. Lactate is normal. Flu is negative. TSH within normal months. Hypomagnesemia is noted. Procalcitonin 0.29. Magnesium was supplemented intravenously. Given broad-spectrum cover ceftriaxone, ?UTI. Still somewhat tachypneic and again with some mild confusion and the fever concerned about her developing sepsis. No evidence of significant hypoperfusion or shock at this time. Discussed with the patient and family were in agreement with further monitoring overnight. They do relate the patient's had urinary frequency but she denies pain with urination. Myalgias that I doubt represent meningitis. Discussed with the [facility] hospitalist. Impression & Plan Acute UTI, Confusion, Hypomagnesemia, Shortness of breath, Fever, Myalgia Discharge Plan Visit Data Chief Complaint: Hyperglycemia Stated Complaint: HIGHBLOOD SUGAR, PAIN, SLEEPY, CONFUSED ED Provider: Daniel Gonzalez Discharge Problem: Acute UTI, Confusion, Hypomagnesemia, Shortness of breath, Fever, Myalgia Patient Disposition: Being Evaluated by Hospitalist Forms Stand Alone Forms: [facility] Prescriptions Prescriptions: No Action amoxicillin 500 mg capsule 2,000 mg PO UD RF: 0 glipizide 10 mg tablet 10 mg PO BID RF: 0 aspirin 81 mg Tablet,Delayed Release (Dr/Ec) 81 mg PO DAILY RF: 0 omeprazole 20 mg capsule,delayed release(DR/EC) 20 mg PO QAM RF: 0 losartan 100 mg tablet 100 mg PO QAM RF: 0 atenolol 50 mg tablet 100 mg PO QAM RF: 0 cholecalciferol (vitamin D3) [Vitamin D3] 1,000 unit Tablet 1,000 unit PO QAM RF: 0 hydrochlorothiazide 12.5 mg tablet 12.5 mg PO QAM RF: 0 Lantus Solostar U-100 Insulin 100 unit/mL (3 mL) insulin pen 22 unit subcut HS RF: 0 acetaminophen [Tylenol] 325 mg Tablet 650 mg PO Q6H PRN (Reason: Pain) RF: 0 cyclobenzaprine 5 mg tablet 5 mg PO BID PRN (Reason: Muscle Spasm) RF: 0 Referrals Referrals: Ernesto Alston, [Primary Care Provider] - Discharge Problem: Fever Qualifiers: Fever type: unspecified Qualified Code(s): R50.9 - Fever, unspecified The scribe's documentation has been prepared under my direction and personally reviewed by me in its entirety. I confirm that the note above accurately reflects all work, treatment, procedures, and medical decision making performed by me.
--- NOTE | 2019-09-04 21:00 | History & Physical Report ---
Date of Service September 04, 2019 Assessment & Plan (1) SIRS (systemic inflammatory response syndrome): (2) Fever: Meet Sepsis criteria on admission with elevating WBC, febrile UA positive for leukocytes and bacteria Received IV ceftriaxone in the ER Blood cx and urine cx collected in the ER pending Continue IV Ceftriaxone Will monitor CBC (3) Metabolic encephalopathy: Present on admission with confusion and generalized weakness Possible related to UTI CT head showed no acute intracranial abnormality No focal neuro deficit on exam Will continue Monitor Acute on CKD stage 3 Possible related to poor oral intake/dehydration Creatinine 1.6 on admission, baseline creatinine 1.3 Received IVF in the ER Will hold HCTZ Will hold Losartan if creatinine worsening in am Will continue gentle hydration Monitor closely for fluid overload Monitor BMP Abnormal UA Continue IV ceftriaxone Urine cx and blood cx pending Hypomagnesemia Mostly related to poor oral intake/low appetite Mg 1.5 on admission Mg replaced Monitor electrolytes HTN BP stable Continue atenolol and losartan Monitor BP Diabetes Most recent HBA1c 7.7 on 07/23 Will hold glipizide while in the hospital Continue Lantus [address] on novolog sliding scale Monitor BS Celiac artery/SMA stenosis Continue aspirin Follow with vascular DVT px on SCDs due to recent hospitalization for rectal bleed CODE STATUS FULL CODE History of Present Illness Chief Complaint: Confusion/ weakness Primary Care Provider: Ernesto Alston, 84 years old female with past medical history of type 2 diabetes, CKD stage III, dyslipidemia, hypertension, SMA and celiac artery stenosis, recent hosp italization in July for rectal bleeding was brought by family for confusion and weakness. Most of the history obtained from daughters at bedside due to patient decreased hearing function. As per daughter patient was found to be awkward today during conversation. Daughter said today when they were talking to her she did not make sense for sometimes. Daughter said she slept mostly today that is not normal for her. Patient said that she has been feeling weak for the past 2 days. She also complains of dysuria and increased urinary frequency. Daughter said she felt feverish and chills today. She has been having very poor appetite for the past 2 days. Denies any recent traveling or sick contact. Patient said she is been having neck pain for the past month and denies any recent falls. She said that she feels nauseated today. Denies any chest pain, palpitation, dizziness, and shortness of breath. Allergies Allergy/AdvReac Type Severity Reaction Status Date / Time ezetimibe Allergy Intermediate . Unverified 09/04/19 19:40 atorvastatin Allergy Mild Unknown Unverified 09/04/19 19:40 chlorthalidone Allergy Mild Unknown Unverified 09/04/19 19:40 diltiazem Allergy Mild Unknown Unverified 09/04/19 19:40 ibuprofen Allergy Mild Unknown Unverified 09/04/19 19:40 lisinopril Allergy Mild Unknown Unverified 09/04/19 19:40 naproxen Allergy Mild Unknown Unverified 09/04/19 19:40 NSAIDS (Non-Steroidal Allergy Unknown . Verified 09/04/19 19:40 Anti-Inflamma simvastatin Allergy Unknown . Unverified 09/04/19 19:40 Home Medications Home Medications Medication Instructions Recorded Confirmed Type amoxicillin 2,000 mg PO UD 07/12/18 09/04/19 History aspirin 81 mg PO DAILY 07/12/18 09/04/19 History atenolol 100 mg PO QAM 07/12/18 09/04/19 History cholecalciferol (vitamin D3) 1,000 unit PO QAM 07/12/18 09/04/19 History [Vitamin D3] glipizide 10 mg PO BID 07/12/18 09/04/19 History hydrochlorothiazide 12.5 mg PO QAM 07/12/18 09/04/19 History insulin glargine [Lantus Solostar 22 unit SUBCUT HS 07/12/18 09/04/19 History U-100 Insulin] losartan 100 mg PO QAM 07/12/18 09/04/19 History omeprazole 20 mg PO QAM 07/12/18 09/04/19 History acetaminophen [Tylenol] 650 mg PO Q6H PRN 09/04/19 09/04/19 History cyclobenzaprine 5 mg PO BID PRN 09/04/19 09/04/19 History Past Med/Surg History Medical History CKD (chronic kidney disease), stage III (Chronic) DM type 2 (diabetes mellitus, type 2) (Chronic) Dyslipidemia (Chronic) GERD (gastroesophageal reflux disease) (Chronic) Hypertension (Chronic) Pulmonary nodule (Chronic) Rectal bleeding (Chronic) Surgical History History of appendectomy (Chronic) History of bowel resection (Chronic) History of hysterectomy (Chronic) History of total left knee replacement (Chronic) Hx laparoscopic cholecystectomy (Chronic) Family History Other No significant family history Social History Preferred Language: Belarusian Communication Ability: Effective Coach Cleaner Required: No Beliefs That Will Affect Care: None Current Living Situation: Spouse Feels Safe at Home: Yes Smoking Status: Never smoker Second Hand Exposure: Yes ( smoked, quit 30+ years ago) ; Hx Alcohol Use: No Hx Substance Use: No Review of Systems Review of Systems: All systems reviewed & are unremarkable except as noted in HPI & below Physical Exam Physical Exam: General- No acute distress Head- atraumatic Eyes- PERRL, EOMI, ENT- decrease hearing function Neck- supple, no JVD Lungs- clear to auscultation Heart- regular rhythm; no murmur Abdomen- normal bowel sounds, soft, nontender Extremities- no calf tenderness Neuro- alert, oriented; PERRL, EOMI; no facial palsy; no dysarthria Skin- warm & dry Results & Data Vital Signs (Past 12 Hours) Vital Signs Temp Pulse Pulse Resp BP BP Pulse Ox 09/04/19 20:29 69 24 125/50 L 95 09/04/19 19:06 36.9 C 84 28 H 164/85 H 95 09/04/19 18:08 38.1 C H 80 24 189/71 H 97 Diagnostic Findings SINGLE VIEW CHEST CLINICAL HISTORY: Generalized weakness. Fever. FINDINGS: An AP, portable, upright chest radiograph is compared to study dated 07/12/2018. Correlation is made with chest CT dated 01/10/2008. The examination is degraded by portable technique and patient rotation. The heart is mildly enlarged noting atherosclerotic calcification of the thoracic ureter. The pulmonary vasculature is non congested. Chronic interstitial thickening is sim ilar to previous. There is mild bibasilar scarring/atelectasis. The lungs and pleural spaces are otherwise clear. No pneumothorax is seen. The skeletal structures are osteopenic. The bony thorax is grossly intact. IMPRESSION: Mild cardiac enlargement with no active disease in the chest. ACT 112: Negative or not required by law. Electronically signed by: Paco Chicas M.D. 09/04/2019 7:22 PM Dictated: 09/04/191920 Transcribed: 09/04/191920 CT SCAN OF THE BRAIN WITHOUT IV CONTRAST CLINICAL HISTORY: Change in mental status. COMPARISON STUDY: No priors. TECHNIQUE: Unenhanced axial CT scan of the brain is performed from the vertex to the skull base. A dose lowering technique was utilized adhering to the principles of ALARA. CT DOSE: 537.48 mGy.cm FINDINGS: Brain parenchyma: There are age-related involutional changes noting mild subcortical and periventricular microangiopathic change. There is no hemorrhage, mass effect, or evidence of acute territorial ischemia by CT criteria. [place]- white matter differentiation is preserved. No extra-axial fluid collection is seen. Ventricles, sulci, cisterns: Prominent secondary to involutional change. Intracranial vasculature: There is atherosclerotic calcification of the cavernous carotid and vertebral arteries. Calvarium: Unremarkable. Sinuses and mastoids: The visualized paranasal sinuses are clear. The mastoid air cells are well pneumatized. Orbits: The bony orbits are grossly intact. IMPRESSION: There is no hemorrhage, mass effect, or evidence of acute territorial ischemia by CT criteria. ACT 112: Negative or not required by law. Electronically signed by: Paco Chicas M.D. 09/04/2019 7:18 PM Dictated: 09/04/191916 Transcribed: 09/04/191916 (1) Fever Fever type: unspecified Qualified Code(s): R50.9 - Fever, unspecified
[2019-09-04] MEDS ORDERED: DEXTROSE 50% 50 ML SYRINGE IV PRN (22:06)
[2019-09-04] MEDS ORDERED: GLUCOSE 40% GEL 15 GM TUBE PO PRN (22:06)
[2019-09-04] MEDS ORDERED: GLUCAGON FOR INJ 1 MG VIAL SQ PRN (22:06)
[2019-09-04] MEDS ORDERED: CARBOHYDRATES FOR HYPOGLYCEMIA PO PRN (22:06)
[2019-09-04] MEDS ORDERED: GLUCOSE 10 TABS/TUBE PO PRN (22:06)
[2019-09-04] MEDS ORDERED: ACETAMINOPHEN 325 MG TAB PO PRN (22:06)
[2019-09-04] MEDS ORDERED: INSULIN GLARGINE SOLOSTAR 100 UNITS/ML 3 ML PEN SQ SCH (22:06)
[2019-09-04] MEDS: INSULIN ASPART 100 UNITS/ML 3 ML PEN SC SCH (22:41)
[2019-09-05 06:59] LABS: Hematocrit (blood only) 33.8 % (37-47); Hemoglobin 11.3 g/dL (12.0-16.0); Mean Corpuscular Hemoglobin 29.4 pg (25-34); Mean Corpuscular Hgb Conc 33.4 g/dL (32-36); Mean Platelet Volume 9.8 fL (7.4-10.4); Platelet Count 188 K/uL (130-400); RDW Coefficient of Variation 12.5 % (11.5-14.5); RDW Standard Deviation 40.3 fL (36.4-46.3); Red Blood Count 3.84 M/uL (4.2-5.4); White Blood Count 12.22 K/uL (4.8-10.8)
[2019-09-05 07:30] LABS: BUN Creatinine Ratio 17.4 (10-20); Calcium 8.3 mg/dl (8.5-10.1); Creatinine Clr Calc Pharmacy 28.3 ml/min; Est GFR (Non-African American) 32.8; Magnesium 1.9 mg/dl (1.8-2.4); Potassium 3.9 mmol/L (3.5-5.1)
[2019-09-05] MEDS: PANTOprazole 40 MG TAB PO SCH (07:56)
[2019-09-05] MEDS: ASPIRIN 81 MG ECTAB PO SCH (07:56)
[2019-09-05] MEDS: ATENOLOL 50 MG TABLET PO SCH (07:56)
[2019-09-05] MEDS: LOSARTAN POTASSIUM 50 MG TAB PO SCH (07:56)
[2019-09-05] MEDS: CHOLECALCIFEROL 1,000 UNITS TAB PO SCH (07:57)
[2019-09-05] MEDS: INSULIN ASPART 100 UNITS/ML 3 ML PEN SC SCH ×4 (09:44→20:39)
--- NOTE | 2019-09-05 12:58 | Hospitalist Progress Note ---
Date of Service September 05, 2019 Assessment & Plan (1) SIRS (systemic inflammatory response syndrome): (2) Fever: Sepsis UTI Bacteremia Normal Lactate levels CXR:Mild cardiac enlargement with no active disease in the chest. Blood Cx: Gram Negative Bacilli Urine Cx: Gram Negative Bacilli Continue Rocephin 2gms daily Day #2 Received IV fluids (3) Metabolic encephalopathy: Secondary to above CT head:There is no hemorrhage, mass effect, or evidence of acute territorial ischemia by CT criteria. No focal neuro deficit on exam Mental status improved Reorient frequently Monitor EUSEBIO on CKD III Likely prerenal due to UTI/poor oral intake Baseline Cr:1.3 Received IV Fluids Cr: 1.4 today Hold HCTZ for now May need to hold losartan as well if renal function worsens Avoid Nephrotoxic agents as able Monitor renal function Hypomagnesemia Replete electrolytes as needed HTN BP slightly elevated Continue atenolol, losartan Monitor BP DM II Most recent HBA1c 7.7 on 07/23 Hold glipizide Continue ISS, Lantus Adjust Insulin as needed Monitor BGs Celiac artery/SMA stenosis Continue aspirin Follow with vascular DVT Px: SCDsRe: recent hospitalization for rectal bleed CODE STATUS FULL CODE Disposition: PT/OT prior to discharge Subjective Patient is seen and examined at bedside Doing well today Confusion resolved Denies any dysuria, hematuria, increased urine frequency, abd pain Reports chronic headache which has improved Denies any chest pain, SO, dizziness, change in vision Offers no other complaints Febrile today Review of Systems Review of Systems: All systems reviewed & are unremarkable except as noted in HPI & below Physical Exam Physical Exam: Physical Exam: Vitals signs as noted above General Appearance:Moderately built and nourished, no apparent distress Head: normocephalic, Atraumatic Eyes: normal inspection, EOMI Neck: supple, Trachea midline Respiratory/Chest: Normal breath sounds, CTA Cardiovascular: S1, S2, No murmur Abdomen/GI:Soft, Non tender, Bowel sounds present Extremities/Musculoskelatal:normal inspection, Trace edema Neurologic/Psych:AAOX3, grossly no focal neurological deficits, Hearing impairment Skin: normal color, warm Results & Data Vital Signs (Past 12 Hours) Vital Signs Temp Pulse Resp BP Pulse Ox 09/05/19 07:15 37.7 C H 77 18 160/74 H 96 Laboratory Results Short CBC 01/01/20 01/02/20 Range/Units 18:51 06:43 WBC 13.22 H 12.22 H (4.8-10.8) K/uL Hgb 11.6 L 11.3 L (12.0-16.0) g/dL Hct 34.5 L 33.8 L (37-47) % Plt Count 225 188 (130-400) K/uL BMP 09/04/19 09/05/19 18:51 06:43 Sodium 133 L 135 L Potassium 3.9 3.9 Chloride 103 108 H Carbon Dioxide 22 22 BUN 30 H 25 H Creatinine 1.64 H 1.45 H Glucose 193 H 156 H Calcium 8.5 8.3 L Cardiac Enzymes 09/04/19 Range/Units 18:51 Troponin I < 0.015 (0-0.045) ng/ml Liver Function 09/04/19 Range/Units 18:51 Total Bilirubin 0.7 (0.2-1) mg/dl AST 17 (15-37) U/L ALT 24 (12-78) U/L Alkaline Phosphatase 86 (45-117) U/L Albumin 3.0 L (3.4-5.0) gm/dl Urine 09/04/19 Range/Units 18:30 Urine Color Yellow Urine Appearance Cloudy A (Clear) Urine pH 5.0 (4.5-7.5) Ur Specific [place] 1.014 (1.000-1.030) Urine Protein 2+ H (Negative) Urine Glucose (UA) Negative (Negative) (1) Fever Fever type: unspecified Qualified Code(s): R50.9 - Fever, unspecified
[2019-09-05] MEDS: cefTRIAXone SODIUM 2,000 MG in DEXTROSE 5% 50 ML IV SCH (20:37)
[2019-09-05] MEDS: INSULIN GLARGINE SOLOSTAR 100 UNITS/ML 3 ML PEN SQ SCH (20:40)
[2019-09-06 05:53] LABS: Hematocrit (blood only) 31.6 % (37-47); Hemoglobin 10.5 g/dL (12.0-16.0); Mean Corpuscular Hemoglobin 29.2 pg (25-34); Mean Corpuscular Hgb Conc 33.2 g/dL (32-36); Mean Platelet Volume 10.1 fL (7.4-10.4); Platelet Count 181 K/uL (130-400); RDW Coefficient of Variation 12.4 % (11.5-14.5); RDW Standard Deviation 40.2 fL (36.4-46.3); Red Blood Count 3.59 M/uL (4.2-5.4); White Blood Count 8.29 K/uL (4.8-10.8)
[2019-09-06 06:23] LABS: BUN Creatinine Ratio 16.3 (10-20); Calcium 8.3 mg/dl (8.5-10.1); Creatinine Clr Calc Pharmacy 27.5 ml/min; Est GFR (African American) 36.7; Est GFR (Non-African American) 31.7; Magnesium 1.8 mg/dl (1.8-2.4); Potassium 3.9 mmol/L (3.5-5.1)
[2019-09-06] MEDS: ATENOLOL 50 MG TABLET PO SCH (08:00)
[2019-09-06] MEDS: CHOLECALCIFEROL 1,000 UNITS TAB PO SCH (08:00)
[2019-09-06] MEDS: LOSARTAN POTASSIUM 50 MG TAB PO SCH (08:01)
[2019-09-06] MEDS: ASPIRIN 81 MG ECTAB PO SCH (08:01)
[2019-09-06] MEDS: PANTOprazole 40 MG TAB PO SCH (08:01)
--- NOTE | 2019-09-06 08:14 | Electrocardiogram Report ---
Test Reason : Blood Pressure : / mmHG Vent. Rate : 080 BPM Atrial Rate : 080 BPM P-R Int : 158 ms QRS Dur : 096 ms QT Int : 356 ms P-R-T Axes : 054 -25 033 degrees QTc Int : 410 ms Normal sinus rhythm Incomplete right bundle branch block Borderline ECG When compared with ECG of 12-JUL-2018 13:46, No significant change was found Confirmed by Dago Adamson ([id number]) on 09/05/2019 5:34:56 PM Referred By: REFERRED SELF Confirmed By:Lawrence Adamson
[2019-09-06] MEDS: INSULIN ASPART 100 UNITS/ML 3 ML PEN SC SCH ×4 (09:12→21:19)
--- NOTE | 2019-09-06 19:15 | Hospitalist Progress Note ---
Date of Service September 06, 2019 Assessment & Plan (1) SIRS (systemic inflammatory response syndrome): (2) Fever: Sepsis UTI Bacteremia Normal Lactate levels CXR:Mild cardiac enlargement with no active disease in the chest. Blood Cx: Gram Negative Bacilli Urine Cx: Gram Negative Bacilli Continue Rocephin 2gms daily Day #3 Received IV fluids Continue current management (3) Metabolic encephalopathy: Secondary to above CT head:There is no hemorrhage, mass effect, or evidence of acute territorial ischemia by CT criteria. No focal neuro deficit on exam Mental status improved Reorient frequently Monitor EUSEBIO on CKD III Likely prerenal due to UTI/poor oral intake Baseline Cr:1.3 Received IV Fluids Cr: 1.4 today Hold HCTZ for now May need to hold losartan as well if renal function worsens Avoid Nephrotoxic agents as able Currently continue to monitor renal function Hypomagnesemia Replete electrolytes as needed HTN BP stable Continue atenolol, losartan Monitor BP DM II Most recent HBA1c 7.7 on 07/23 Hold glipizide Continue ISS, Lantus Adjust Insulin as needed Monitor BGs Celiac artery/SMA stenosis Continue aspirin Follow with vascular DVT Px: SCDsRe: recent hospitalization for rectal bleed CODE STATUS FULL CODE Disposition: PT/OT: Recommends to return home Subjective Patient is seen and examined at bedside No new complaints Still waiting for cultures Discussed with patient's daughter in detail today No recurrence of confusion Denies any dysuria, hematuria, increased urine frequency, abd pain Also denies chest pain, SO, dizziness, change in vision Review of Systems Review of Systems: All systems reviewed & are unremarkable except as noted in HPI & below Physical Exam Physical Exam: Physical Exam: Vitals signs as noted above General Appearance:Moderately built and nourished, no apparent distress Head: normocephalic, Atraumatic Eyes: normal inspection, EOMI Neck: supple, Trachea midline Respiratory/Chest: Normal breath sounds, CTA Cardiovascular: S1, S2, No murmur Abdomen/GI:Soft, Non tender, Bowel sounds present Extremities/Musculoskelatal:normal inspection, Trace edema Neurologic/Psych:AAOX3, grossly no focal neurological deficits, Hearing impairment Skin: normal color, warm Results & Data Vital Signs (Past 12 Hours) Vital Signs Temp Pulse Resp BP Pulse Ox 09/06/19 14:36 36.9 C 67 18 141/62 H 97 Laboratory Results Short CBC 09/06/19 Range/Units 05:32 WBC 8.29 (4.8-10.8) K/uL Hgb 10.5 L (12.0-16.0) g/dL Hct 31.6 L (37-47) % Plt Count 181 (130-400) K/uL BMP 09/06/19 05:32 Sodium 136 Potassium 3.9 Chloride 107 Carbon Dioxide 22 BUN 24 H Creatinine 1.49 H Glucose 141 H Calcium 8.3 L (1) Fever Fever type: unspecified Qualified Code(s): R50.9 - Fever, unspecified
[2019-09-06] MEDS: cefTRIAXone SODIUM 2,000 MG in DEXTROSE 5% 50 ML IV SCH (19:28)
[2019-09-06] MEDS: INSULIN GLARGINE SOLOSTAR 100 UNITS/ML 3 ML PEN SQ SCH (21:20)
[2019-09-07] MEDS ORDERED: CEFDINIR 300 MG CAP PO SCH
[2019-09-07 06:16] LABS: Hematocrit (blood only) 31.4 % (37-47); Hemoglobin 10.7 g/dL (12.0-16.0); Mean Corpuscular Hgb Conc 34.1 g/dL (32-36); Mean Platelet Volume 9.9 fL (7.4-10.4); Platelet Count 195 K/uL (130-400); RDW Coefficient of Variation 12.4 % (11.5-14.5); RDW Standard Deviation 39.9 fL (36.4-46.3); Red Blood Count 3.57 M/uL (4.2-5.4); White Blood Count 8.29 K/uL (4.8-10.8)
[2019-09-07 06:56] LABS: BUN Creatinine Ratio 17.3 (10-20); Calcium 8.3 mg/dl (8.5-10.1); Creatinine Clr Calc Pharmacy 30.6 ml/min; Est GFR (African American) 41.8; Potassium 3.9 mmol/L (3.5-5.1)
[2019-09-07] MEDS: CHOLECALCIFEROL 1,000 UNITS TAB PO SCH (07:49)
[2019-09-07] MEDS: ATENOLOL 50 MG TABLET PO SCH (07:49)
[2019-09-07] MEDS: ASPIRIN 81 MG ECTAB PO SCH (07:49)
[2019-09-07] MEDS: LOSARTAN POTASSIUM 50 MG TAB PO SCH (07:49)
[2019-09-07] MEDS: PANTOprazole 40 MG TAB PO SCH (07:49)
[2019-09-07] MEDS: INSULIN ASPART 100 UNITS/ML 3 ML PEN SC SCH ×2 (08:34→12:35)
[2019-09-07] MEDS ORDERED: cefTRIAXone SODIUM 2,000 MG in DEXTROSE 5% 50 ML IV ONE (10:00)
--- NOTE | 2019-09-07 13:09 | Hospitalist Progress Note ---
Date of Service September 07, 2019 Assessment & Plan (1) SIRS (systemic inflammatory response syndrome): (2) Fever: Sepsis UTI Bacteremia Normal Lactate levels CXR:Mild cardiac enlargement with no active disease in the chest. Blood Cx: E. coli Urine Cx: E. coli Continue Rocephin 2gms daily Day #4 Received IV fluids Plan to discharge on p.o. antibiotics to complete 2-week course (3) Metabolic encephalopathy: Secondary to above CT head:There is no hemorrhage, mass effect, or evidence of acute territorial ischemia by CT criteria. No focal neuro deficit on exam Mental status back to baseline Reorient frequently Monitor EUSEBIO on CKD III Likely prerenal due to UTI/poor oral intake Baseline Cr:1.3 Received IV Fluids Cr: 1.3 today Hold HCTZ for now May need to hold losartan as well if renal function worsens Avoid Nephrotoxic agents as able Currently continue to monitor renal function Hypomagnesemia Replete electrolytes as needed HTN BP stable Continue atenolol, losartan Monitor BP DM II Most recent HBA1c 7.7 on 07/23 Hold glipizide Continue ISS, Lantus Adjust Insulin as needed Monitor BGs Celiac artery/SMA stenosis Continue aspirin Follow with vascular DVT Px: SCDsRe: recent hospitalization for rectal bleed CODE STATUS FULL CODE Disposition: PT/OT: Recommends to return home Plan to discharge home today Subjective Patient is seen and examined at bedside Doing well today Eager to get discharged Discussed with patient's son in detail today Denies any chest pain, shortness of breath, dizziness, nausea, abdominal pain, urinary frequency, dysuria Plan to discharge home today Review of Systems Review of Systems: All systems reviewed & are unremarkable except as noted in HPI & below Physical Exam Physical Exam: Physical Exam: Vitals signs as noted above General Appearance:Moderately built and nourished, no apparent distress Head: normocephalic, Atraumatic Eyes: normal inspection, EOMI Neck: supple, Trachea midline Respiratory/Chest: Normal breath sounds, CTA Cardiovascular: S1, S2, No murmur Abdomen/GI:Soft, Non tender, Bowel sounds present Extremities/Musculoskelatal:normal inspection, Trace edema Neurologic/Psych:AAOX3, grossly no focal neurological deficits, Hearing impairment Skin: normal color, warm Results & Data Vital Signs (Past 12 Hours) Vital Signs Temp Pulse Resp BP Pulse Ox 09/07/19 07:00 36.9 C 64 20 152/69 H 96 Laboratory Results Short CBC 09/07/19 Range/Units 06:00 WBC 8.29 (4.8-10.8) K/uL Hgb 10.7 L (12.0-16.0) g/dL Hct 31.4 L (37-47) % Plt Count 195 (130-400) K/uL BMP 09/07/19 06:00 Sodium 135 L Potassium 3.9 Chloride 106 Carbon Dioxide 24 BUN 23 H Creatinine 1.34 H Glucose 145 H Calcium 8.3 L (1) Fever Fever type: unspecified Qualified Code(s): R50.9 - Fever, unspecified
--- NOTE | 2019-09-07 13:25 | Discharge Summary ---
Date of Service September 07, 2019 Admission HPI Per Admitting Provider 84 years old female with past medical history of type 2 diabetes, CKD stage III, dyslipidemia, hypertension, SMA and celiac artery stenosis, recent hospitalization in July for rectal bleeding was brought by family for confusion and weakness. Most of the history obtained from daughters at bedside due to patient decreased hearing function. As per daughter patient was found to be awkward today during conversation. Daughter said today when they were talking to her she did not make sense for sometimes. Daughter said she slept mostly today that is not normal for her. Patient said that she has been feeling weak for the past 2 days. She also complains of dysuria and increased urinary frequency. Daughter said she felt feverish and chills today. She has been having very poor appetite for the past 2 days. Denies any recent traveling or sick contact. Patient said she is been having neck pain for the past month and denies any recent falls. She said that she feels nauseated today. Denies any chest pain, palpitation, dizziness, and shortness of breath. Admission Exam Per Admitting Provider Physical Exam Physical Exam: General- No acute distress Head- atraumatic Eyes- PERRL, EOMI, ENT- decrease hearing function Neck- supple, no JVD Lungs- clear to auscultation Heart- regular rhythm; no murmur Abdomen- normal bowel sounds, soft, nontender Extremities- no calf tenderness Neuro- alert, oriented; PERRL, EOMI; no facial palsy; no dysarthria Skin- warm & dry Principal Diagnosis Urinary tract infection Bacteremia Metabolic encephalopathy Acute kidney injury Discharge Data Allergies Allergy/AdvReac Type Severity Reaction Status Date / Time ezetimibe Allergy Intermediate . Unverified 09/04/19 19:40 atorvastatin Allergy Mild Unknown Unverified 09/04/19 19:40 chlorthalidone Allergy Mild Unknown Unverified 09/04/19 19:40 diltiazem Allergy Mild Unknown Unverified 09/04/19 19:40 ibuprofen Allergy Mild Unknown Unverified 09/04/19 19:40 lisinopril Allergy Mild Unknown Unverified 09/04/19 19:40 naproxen Allergy Mild Unknown Unverified 09/04/19 19:40 NSAIDS (Non-Steroidal Allergy Unknown . Verified 09/04/19 19:40 Anti-Inflamma simvastatin Allergy Unknown . Unverified 09/04/19 19:40 Consultations 09/04/19 19:50 ED Decision to Admit Stat Procedures Performed CT head: There is no hemorrhage, mass effect, or evidence of acute territorial ischemia by CT criteria. CXR: Mild cardiac enlargement with no active disease in the chest. Ordered Studies 09/04/19 18:22 CT head/brain wo con Stat Hospital Course (1) SIRS (systemic inflammatory response syndrome): (2) Fever: Sepsis UTI Bacteremia Normal Lactate levels CXR:Mild cardiac enlargement with no active disease in the chest. Blood Cx: E. coli Urine Cx: E. coli Continue Rocephin 2gms daily Day #4 Received IV fluids Plan to discharge on p.o. antibiotics to complete 2-week course (3) Metabolic encephalopathy: Secondary to above CT head:There is no hemorrhage, mass effect, or evidence of acute territorial ischemia by CT criteria. No focal neuro deficit on exam Mental status back to baseline Reorient frequently Monitor EUSEBIO on CKD III Likely prerenal due to UTI/poor oral intake Baseline Cr:1.3 Received IV Fluids Cr: 1.3 today Hold HCTZ for now May need to hold losartan as well if renal function worsens Avoid Nephrotoxic agents as able Currently continue to monitor renal function Hypomagnesemia Replete electrolytes as needed HTN BP stable Continue atenolol, losartan Monitor BP DM II Most recent HBA1c 7.7 on 07/23 Hold glipizide Continue ISS, Lantus Adjust Insulin as needed Monitor BGs Celiac artery/SMA stenosis Continue aspirin Follow with vascular DVT Px: SCDsRe: recent hospitalization for rectal bleed CODE STATUS FULL CODE Disposition: PT/OT: Recommends to return home Plan to discharge home today Total Time Total Time Spent Total Time Spent (In Minutes): 38 minutes Total Time Includes: Examination of the Patient, Discharge Planning, Medication Reconciliation, Communication With Other Providers and Other Discharge Plan Discharge Items Patient Disposition: Home - Self-Care Reason For Visit: CONFUSION,WEAKNESS Discharge Diagnosis: Urinary tract infection Bacteremia Metabolic encephalopathy Acute kidney injury Activity: Resume your previous activity Exercise/Sports: Gradually increase as tolerated Non-emergency contact: Primary Care Provider Call non-emergency contact if: you have any medication questions, your symptoms worsen, your pain is not controlled, your pain is worsening, your pain is unusual for you and your pain is concerning for you Follow-up/Referrals: Ernesto Alston, DO [Primary Care Provider] - Diet: Carb Consistent or DM2 and Heart Healthy Ambulatory Orders: Basic Metabolic Panel (Routine) Timeframe: 1 Week Location: Determined by Patient Ordered By: Ravinder Osorio Attending Provider Instructions: Follow up with your Primary Care Physician on Sep 10, 2019 at 1:45PM Complete the antibiotic course as prescribed (10 more days). Start taking Ce fdinir (Omnicef) 300mg Twice a day starting 09/08/2019 Do Not Take your Hydrochlorthiazide for 5 more days. Can resume after discussing with your Primary Care Physician Get Blood Test (Basic Metabolic Panel) in 1 week and follow up with your Physician with results--for monitoring of your renal function Seek immediate medical attention if your symptoms reoccur or worsen Pending Studies at Discharge: Yes Studies:: Blood Cultures Stand-Alone Forms: My [facility] [employer], Smoking Cessation Medications and DC Order Prescriptions: New cefdinir 300 mg Capsule 300 mg PO BID Qty: 18 RF: 0 Continued amoxicillin 500 mg capsule 2,000 mg PO UD RF: 0 glipizide 10 mg tablet 10 mg PO BID RF: 0 aspirin 81 mg Tablet,Delayed Release (Dr/Ec) 81 mg PO DAILY RF: 0 omeprazole 20 mg capsule,delayed release(DR/EC) 20 mg PO QAM RF: 0 losartan 100 mg tablet 100 mg PO QAM RF: 0 atenolol 50 mg tablet 100 mg PO QAM RF: 0 cholecalciferol (vitamin D3) [Vitamin D3] 1,000 unit Tablet 1,000 unit PO QAM RF: 0 hydrochlorothiazide 12.5 mg tablet 12.5 mg PO QAM RF: 0 insulin glargine 100 unit/mL (3 mL) insulin pen 22 unit subcut HS RF: 0 acetaminophen [Tylenol] 325 mg Tablet 650 mg PO Q6H PRN (Reason: Pain) RF: 0 cyclobenzaprine 5 mg tablet 5 mg PO BID PRN (Reason: Muscle Spasm) RF: 0 Discharge Orders: Discharge Order (Routine); Ordered 09/07/19 Ordered By: aRvinder Bunch Admission Data Admit Date/Time: 09/04/19 20:59 Attending Provider: Ravinder Bunch Admit Provider: Micaela Nino Primary Care Provider: Ernesto Alston Other Providers: Lorenzo Raines Other Interventions: Discharge Summary Assessment (RN) Last Done: 09/07/19 13:46 DC Date/Time DO NOT enter until pt leaves facility: 09/07/19 14:37
== END 2019-09-07 14:37 | disposition home or self-care (01) | DRG 871 ==
LOC: ED 17:57 → SUATTDRO 20:59 → 4W 20:59

== ENCOUNTER 2020-01-05 14:48 | Observation (INO) ==
[2020-01-05] MEDS ORDERED: SODIUM CHLORIDE 0.9% 1000ML 1,000 ML IV SCH (15:00)
--- NOTE | 2020-01-05 15:08 | Emergency Department Note ---
Impression & Plan Syncope, HTN (hypertension), EUSEBIO (acute kidney injury), Low bicarbonate level, TSH elevation ED Provider Note NAME: KIM DAVID AGE: 84 SEX: F : 1935 ARRIVES VIA: Ambulance INFORMANT: Patient, EMS ED PROVIDER(S): Himanshu Oneill DO CHIEF COMPLAINT: Syncope HPI: Patient is an 84-year-old female with a past medical history of EUSEBIO, GI bleed, CKD, diabetes, hyperlipidemia and hypertension that presents the ER following a syncopal episode. She notes that she was having some pain in her wrist and felt very nauseated. She felt as though she had to go the bathroom. She went inside and on the toilet and passed out. There is no full body shaking. She was passed out for 1 to 3 minutes. When she woke up she knew where she was. There is no seizure activity. She notes that she vomited a couple times after this event. She notes this all started just prior to arrival. She denies any chest pain shortness of breath or focal weakness prior to this event or after the event. No other complaints at this time. ROS: See above HPI for pertinent positives & negatives. A total of 10 systems reviewed and were otherwise negative. PAST MEDICAL HISTORY:See Below PAST SURGICAL HISTORY:See Below FAMILY HISTORY:See Below SOCIAL HISTORY:See Below HOME MEDICATIONS:See Below ALLERGIES:See Below VITALS:See Below PHYSICAL EXAMINATION: GENERAL: Sitting up in bed, alert, well appearing, well nourished, no distress, non-toxic EYE EXAM: normal conjunctiva. PERRL and EOM's intact OROPHARYNX: bite coco on left tongue normal and mucous membranes are moist NECK: supple, no nuchal rigidity, no adenopathy, non-tender LUNGS: Clear to auscultation. Normal chest wall mechanics HEART: no murmurs, S1 normal and S2 normal ABDOMEN: abdomen soft, non-tender, normo-active bowel sounds, no masses, no rebound or guarding. BACK: Back is symmetrical on inspection and there is no deformity, no midline tenderness, no CVA tenderness. SKIN: no rashes and no bruising UPPER EXTREMITIES: upper extremities are grossly normal. LOWER EXTREMITIES: No pitting edema. NEURO EXAM: Normal sensorium, cranial nerves II-XII intact, normal speech, no weakness of arms, no weakness of legs. No drift. Finger to nose intact. Gross sensation intact. MEDICAL DECISION MAKING: Patient is an 84-year-old female with a past medical history of diabetes, hyper tension and hyperlipidemia..who presents the ER as she was having left hand pain/cramping. She notes she became very nauseated, diaphoretic and felt like she had to go to the bathroom in regards to having a bowel movement and urinating. She sat on the toilet and passed out. She does not remember anything else. Daughter came into the bathroom and found her drooling but no diffuse body shaking. When she woke up, she was confused but after couple minutes she came to. IV was established blood work was obtained showed a mild leukocytosis of 11.7 thousand. No significant anemia. EKG was unchanged from previous. INR was unremarkable. BMP with a bicarb which was low at 19. Creatinine slightly elevated at 1.7 off of baseline 1.4. Magnesium slightly low at 1.5. LFTs bilirubin was unremarkable. Troponin was negative. TSH was elevated. Free T4 was normal. Patient was given IV fluids. She did have a bite coco on her tongue. Question if she did have a seizure but there is no seizure history. CT head was negative. Chest x-ray was unremarkable. She was updated bedside. I do favor that this is likely vasovagal in nature but that would not explain the low bicarb. She has not had any diarrhea. No other complaints. No chest pain or shortness of breath. With her age risk factors and the low bicarb discussed with the hospitalist for observation. Triage Nursing notes reviewed. Prior medical records reviewed Vital Signs: reviewed and remarkable for no significant abnormalities Differential diagnosis: Differential diagnosis includes etiologies such as vasovagal event, infection, hypoglycemia, electrolyte abnormalities, cardiac sources, intracerebral event, toxicologic, neurologic, as well as others were entertained. ER treatment provided: See below Diagnostics interpreted by me: ECG: Sinus rhythm rate of 64 Left axis No PVCs Normal QTC No change from previous of September 2019 Cardiac Monitoring: An order was placed for continuous cardiac monitoring. The monitor shows a rate of 67 with sinus rhythm. Laboratory studies: As stated above and show below. Imaging studies: CT head shows no acute fractures or bleeds. Portable AP upright 1 view of the chest shows no focal infiltrate or pneumothorax. Consultation(s): Discussed with Dr. Rodriguez from [facility] hospitalist in regards to observation. ED COURSE: Procedures: none Critical Care: None Past Med/Surg History Social History Preferred Language: Wolof Communication Ability: Effective Umbrella Supervisor Required: No Beliefs That Will Affect Care: None Current Living Situation: Spouse Feels Safe at Home: Yes Smoking Status: Never smoker Second Hand Exposure: No ; Hx Alcohol Use: No Hx Substance Use: No Allergies Allergies Allergy/AdvReac Type Severity Reaction Status Date / Time ezetimibe Allergy Intermediate . Unverified 09/04/19 19:40 atorvastatin Allergy Mild Unknown Unverified 09/04/19 19:40 chlorthalidone Allergy Mild Unknown Unverified 09/04/19 19:40 diltiazem Allergy Mild Unknown Unverified 09/04/19 19:40 ibuprofen Allergy Mild Unknown Unverified 09/04/19 19:40 lisinopril Allergy Mild Unknown Unverified 09/04/19 19:40 naproxen Allergy Mild Unknown Unverified 09/04/19 19:40 NSAIDS (Non-Steroidal Allergy Unknown . Verified 09/04/19 19:40 Anti-Inflamma simvastatin Allergy Unknown . Unverified 09/04/19 19:40 Home Meds Home Medications Medication Instructions Recorded Confirmed amoxicillin 2,000 mg PO UD 07/12/18 01/05/20 aspirin 81 mg PO DAILY 07/12/18 01/05/20 atenolol 100 mg PO QAM 07/12/18 01/05/20 cholecalciferol (vitamin D3) 1,000 unit PO QAM 07/12/18 01/05/20 [Vitamin D3] glipizide 10 mg PO BID 07/12/18 01/05/20 hydrochlorothiazide 12.5 mg PO QAM 07/12/18 01/05/20 insulin glargine 22 unit SUBCUT HS 07/12/18 01/05/20 losartan 100 mg PO QAM 07/12/18 01/05/20 omeprazole 20 mg PO QAM 07/12/18 01/05/20 acetaminophen [Tylenol] 650 mg PO Q6H PRN 09/04/19 01/05/20 cyclobenzaprine 5 mg PO BID PRN 09/04/19 01/05/20 Results & Data (ED) Vital Signs Vital Signs - 24 hr 01/05/20 14:56 05/03/20 15:25 01/05/20 15:30 Temperature 36.5 C Temperature Source Oral Pulse Rate 66 63 64 Pulse Rate from SpO2 Sensor 63 64 Respiratory Rate 18 21 16 Blood Pressure 197/71 H 152/75 H 168/59 H Blood Pressure Mean 113 109 69 Pulse Oximetry 97 97 96 Oxygen Delivery Method Room Air Room Air Room Air Sepsis Recent Fever Within 48 Hours No Sepsis New/Unexplained Change in Mental Status No Sepsis Action Taken by Nursing No Action Required 01/05/20 16:33 01/05/20 17:00 Temperature Temperature Source Pulse Rate 78 76 Pulse Rate from SpO2 Sensor 77 77 Respiratory Rate 21 20 Blood Pressure 156/94 H 146/58 H Blood Pressure Mean 121 72 Pulse Oximetry 98 97 Oxygen Delivery Method Room Air Room Air Sepsis Recent Fever Within 48 Hours Sepsis New/Unexplained Change in Mental Status Sepsis Action Taken by Nursing Laboratory Data Result diagrams: 01/05/20 16:24 01/05/20 16:27 Lab Results 01/05/20 01/05/20 01/05/20 Range/Units 15:42 15:42 15:42 WBC Cancelled RBC Cancelled Hgb Cancelled Hct Cancelled MCV Cancelled MCH Cancelled MCHC Cancelled RDW Std Deviation Cancelled RDW Coeff of Ilda Cancelled Plt Count Cancelled MPV Cancelled Immature Gran % (Auto) Cancelled Neut % (Auto) Cancelled Lymph % (Auto) Cancelled Pima % (Auto) Cancelled Eos % (Auto) Cancelled Baso % (Auto) Cancelled Immature Gran # (Auto) Cancelled Neut # (Auto) Cancelled Lymph # (Auto) Cancelled Pima # (Auto) Cancelled Eos # (Auto) Cancelled Baso # (Auto) Cancelled Absolute Nucleated RBC Cancelled Nucleated RBC % (auto) Cancelled Neutrophils % (Manual) Cancelled Band Neutrophils % Cancelled Lymphocytes % (Manual) Cancelled Prolymphocyte % Cancelled Reactive Lymphs % (Man) Cancelled Monocytes % (Manual) Cancelled Eosinophils % (Manual) Cancelled Basophils % (Manual) Cancelled Metamyelocytes % (Man) Cancelled Myelocytes % (Man) Cancelled Promyelocytes % (Man) Cancelled Blast Cells % (Manual) Cancelled Plasma Cell % (Manual) Cancelled Other Cells % Cancelled Nucleated RBC % Cancelled Neutrophils # (Manual) Cancelled Band Neutrophils # Cancelled Total Absolute Neuts Cancelled Lymphocytes # (Manual) Cancelled Prolymphocyte # Cancelled Reactive Lymphs # Cancelled Total Abs Lymphocytes Cancelled Monocytes # (Manual) Cancelled Eosinophils # (Manual) Cancelled Basophils # (Manual) Cancelled Metamyelocytes # (Man) Cancelled Myelocytes # (Manual) Cancelled Promyelocytes # (Man) Cancelled Blast Cells # (Man) Cancelled Plasma Cell # (Manual) Cancelled Other Cells # Cancelled Nucleated RBCs # (Man) Cancelled Hypersegmented Neuts Cancelled Hyposegmented Neuts Cancelled Hypogranular Neuts Cancelled Large Granular Lymphs Cancelled # Lrg Granular Lymphs Cancelled Hairy Cells Cancelled Smudge Cells Cancelled Toxic Granulation Cancelled Toxic Vacuolation Cancelled Dohle Bodies Cancelled Jonnathan Rods Cancelled Platelet Estimate Cancelled Hypogranular Platelets Cancelled Clumped Platelets Cancelled Giant Platelets Cancelled Platelet Satelliting Cancelled RBC Morphology Cancelled Polychromasia Cancelled Hypochromasia Cancelled Poikilocytosis Cancelled Basophilic Stippling Cancelled Anisocytosis Cancelled Microcytosis Cancelled Macrocytosis Cancelled Spherocytes Cancelled Pappenheimer Bodies Cancelled Sickle Cells Cancelled Target Cells Cancelled Tear Drop Cells Cancelled Ovalocytes Cancelled Stomatocytes Cancelled Miranda-Norge Bodies Cancelled Echinocytes Cancelled Acanthocytes (Spur) Cancelled Rouleaux Cancelled RBC Agglutinates Cancelled Schistocytes Cancelled RBC Morph Comment Cancelled Sezary Cell Cancelled PT 10.8 (9.0-12.0) Seconds INR 1.0 (0.9-1.1) APTT 20.6 L (21.0-31.0) Seconds PTT Ratio 0.7 Sodium 136 (136-145) mmol/L Potassium (3.5-5.1) mmol/L Chloride 105 (98-107) mmol/L Carbon Dioxide 19 L (21-32) mmol/L Anion Gap 12.0 H (3-11) BUN 32 H (7-18) mg/dl Creatinine 1.72 H (0.6-1.2) mg/dl Est Cr Clr Drug Dosing 23.6 ml/min Est GFR ( Amer) 30.9 Est GFR (Non-Af Amer) 26.6 BUN/Creatinine Ratio 18.4 (10-20) Glucose 169 H (70-99) mg/dl Calcium 8.9 (8.5-10.1) mg/dl Magnesium (1.8-2.4) mg/dl Total Bilirubin 0.5 (0.2-1) mg/dl AST (15-37) U/L ALT 26 (12-78) U/L Alkaline Phosphatase 86 (45-117) U/L Troponin I < 0.015 (0-0.045) ng/ml Total Protein 8.9 H (6.4-8.2) gm/dl Albumin 3.6 (3.4-5.0) gm/dl Globulin 5.3 H (2.5-4.0) gm/dl Albumin/Globulin Ratio 0.7 L (0.9-2) TSH 5.130 H (0.300-4.500) uIu/ml Free T4 1.14 (0.8-1.6) ng/dl 01/05/20 01/05/20 Range/Units 16:24 16:27 WBC 11.69 H RBC 4.63 Hgb 13.4 Hct 40.2 MCV 86.8 MCH 28.9 MCHC 33.3 RDW Std Deviation 39.9 RDW Coeff of Ilda 12.4 Plt Count 231 MPV 9.9 Immature Gran % (Auto) 0.3 Neut % (Auto) 81.2 Lymph % (Auto) 13.9 Pima % (Auto) 3.5 Eos % (Auto) 0.8 Baso % (Auto) 0.3 Immature Gran # (Auto) 0.04 H Neut # (Auto) 9.50 H Lymph # (Auto) 1.62 Pima # (Auto) 0.41 Eos # (Auto) 0.09 Baso # (Auto) 0.03 Absolute Nucleated RBC Nucleated RBC % (auto) Neutrophils % (Manual) Band Neutrophils % Lymphocytes % (Manual) Prolymphocyte % Reactive Lymphs % (Man) Monocytes % (Manual) Eosinophils % (Manual) Basophils % (Manual) Metamyelocytes % (Man) Myelocytes % (Man) Promyelocytes % (Man) Blast Cells % (Manual) Plasma Cell % (Manual) Other Cells % Nucleated RBC % Neutrophils # (Manual) Band Neutrophils # Total Absolute Neuts Lymphocytes # (Manual) Prolymphocyte # Reactive Lymphs # Total Abs Lymphocytes Monocytes # (Manual) Eosinophils # (Manual) Basophils # (Manual) Metamyelocytes # (Man) Myelocytes # (Manual) Promyelocytes # (Man) Blast Cells # (Man) Plasma Cell # (Manual) Other Cells # Nucleated RBCs # (Man) Hypersegmented Neuts Hyposegmented Neuts Hypogranular Neuts Large Granular Lymphs # Lrg Granular Lymphs Hairy Cells Smudge Cells Toxic Granulation Toxic Vacuolation Dohle Bodies Jonnathan Rods Platelet Estimate Hypogranular Platelets Clumped Platelets Giant Platelets Platelet Satelliting RBC Morphology Polychromasia Hypochromasia Poikilocytosis Basophilic Stippling Anisocytosis Microcytosis Macrocytosis Spherocytes Pappenheimer Bodies Sickle Cells Target Cells Tear Drop Cells Ovalocytes Stomatocytes Miranda-Norge Bodies Echinocytes Acanthocytes (Spur) Rouleaux RBC Agglutinates Schistocytes RBC Morph Comment Sezary Cell PT (9.0-12.0) Seconds INR (0.9-1.1) APTT (21.0-31.0) Seconds PTT Ratio Sodium (136-145) mmol/L Potassium 4.3 (3.5-5.1) mmol/L Chloride (98-107) mmol/L Carbon Dioxide (21-32) mmol/L Anion Gap (3-11) BUN (7-18) mg/dl Creatinine (0.6-1.2) mg/dl Est Cr Clr Drug Dosing ml/min Est GFR ( Amer) Est GFR (Non-Af Amer) BUN/Creatinine Ratio (10-20) Glucose (70-99) mg/dl Calcium (8.5-10.1) mg/dl Magnesium 1.7 L (1.8-2.4) mg/dl Total Bilirubin (0.2-1) mg/dl AST 17 (15-37) U/L ALT (12-78) U/L Alkaline Phosphatase (45-117) U/L Troponin I (0-0.045) ng/ml Total Protein (6.4-8.2) gm/dl Albumin (3.4-5.0) gm/dl Globulin (2.5-4.0) gm/dl Albumin/Globulin Ratio (0.9-2) TSH (0.300-4.500) uIu/ml Free T4 (0.8-1.6) ng/dl Administered Medications Discontinued Medications Sodium Chloride (Nss 1000ml) 1,000 mls @ 999 mls/hr IV .Q1H1M PIOTR Stop: 01/05/20 16:00 Last Infusion: 01/05/20 16:26 Dose: 0 mls/hr Documented by: [id number] Admin: 01/05/20 15:25 Dose: 999 mls/hr Documented by: [id number] Discharge Plan Visit Data Chief Complaint: Syncope Stated Complaint: Lethargic after syncopal episode ED Provider: Himanshu Oneill Discharge Problem: Syncope, HTN (hypertension), EUSEBIO (acute kidney injury), Low bicarbonate level, TSH elevation Forms Stand Alone Forms: [facility] Prescriptions Prescriptions: No Action amoxicillin 500 mg capsule 2,000 mg PO UD RF: 0 glipizide 10 mg tablet 10 mg PO BID RF: 0 aspirin 81 mg Tablet,Delayed Release (Dr/Ec) 81 mg PO DAILY RF: 0 omeprazole 20 mg capsule,delayed release(DR/EC) 20 mg PO QAM RF: 0 losartan 100 mg tablet 100 mg PO QAM RF: 0 atenolol 50 mg tablet 100 mg PO QAM RF: 0 cholecalciferol (vitamin D3) [Vitamin D3] 1,000 unit Tablet 1,000 unit PO QAM RF: 0 hydrochlorothiazide 12.5 mg tablet 12.5 mg PO QAM RF: 0 insulin glargine 100 unit/mL (3 mL) insulin pen 22 unit subcut HS RF: 0 acetaminophen [Tylenol] 325 mg Tablet 650 mg PO Q6H PRN (Reason: Pain) RF: 0 cyclobenzaprine 5 mg tablet 5 mg PO BID PRN (Reason: Muscle Spasm) RF: 0 Discharge Problem: Syncope Qualifiers: Syncope type: unspecified Qualified Code(s): R55 - Syncope and collapse HTN (hypertension) Qualifiers: Hypertension type: unspecified Qualified Code(s): I10 - Essential (primary) hypertension
--- NOTE | 2020-01-05 15:57 | XRay Report ---
XR chest 1V portable HISTORY: syncope COMPARISON: Chest 09/04/2019. FINDINGS: Stable mild cardiomegaly. No pleural effusions. No pneumothorax. The lungs are clear. IMPRESSION: No significant change compared to the prior study. No acute process. ACT 112: Negative or not required by law. Electronically signed by: Marcelino Will M.D. 01/05/2020 3:56 PM
[2020-01-05 16:09] LABS: Partial Thromboplastin Ratio 0.7; Partial Thromboplastin Time 20.6 Seconds (21.0-31.0); Prothrombin Time 10.8 Seconds (9.0-12.0)
[2020-01-05 16:21] LABS: Alanine Aminotransferase 26 U/L (12-78); Albumin Globulin Ratio 0.7 (0.9-2); Albumin Level 3.6 gm/dl (3.4-5.0); Alkaline Phosphatase 86 U/L (45-117); BUN Creatinine Ratio 18.4 (10-20); Bilirubin,Total 0.5 mg/dl (0.2-1); Blood Urea Nitrogen 32 mg/dl (7-18); Calcium 8.9 mg/dl (8.5-10.1); Carbon Dioxide 19 mmol/L (21-32); Chloride 105 mmol/L (98-107); Creatinine Clr Calc Pharmacy 23.6 ml/min; Est GFR (African American) 30.9; Est GFR (Non-African American) 26.6; Globulin 5.3 gm/dl (2.5-4.0); Glucose 169 mg/dl (70-99); Sodium 136 mmol/L (136-145); Total Protein 8.9 gm/dl (6.4-8.2); Troponin I < 0.015 ng/ml (0-0.045)
[2020-01-05 16:36] LABS: Basophils # (auto) 0.03 K/uL (0-0.2); Basophils % (auto) 0.3 %; Eosinophils # (auto) 0.09 K/uL (0-0.5); Eosinophils % (auto) 0.8 %; Hematocrit (blood only) 40.2 % (37-47); Hemoglobin 13.4 g/dL (12.0-16.0); Immature Granulocytes # (auto) 0.04 K/uL (0.00-0.02); Immature Granulocytes % (auto) 0.3 %; Lymphocytes # (auto) 1.62 K/uL (1.2-3.4); Lymphocytes % (auto) 13.9 %; Mean Corpuscular Hemoglobin 28.9 pg (25-34); Mean Corpuscular Hgb Conc 33.3 g/dL (32-36); Mean Corpuscular Volume 86.8 fL (80-100); Mean Platelet Volume 9.9 fL (7.4-10.4); Monocytes # (auto) 0.41 K/uL (0.11-0.59); Monocytes % (auto) 3.5 %; Neutrophils % (auto) 81.2 %; Platelet Count 231 K/uL (130-400); RDW Coefficient of Variation 12.4 % (11.5-14.5); RDW Standard Deviation 39.9 fL (36.4-46.3); Red Blood Count 4.63 M/uL (4.2-5.4); White Blood Count 11.69 K/uL (4.8-10.8)
[2020-01-05 16:47] LABS: Potassium 4.3 mmol/L (3.5-5.1)
--- NOTE | 2020-01-05 16:51 | CT Scan Report ---
HEAD CT NONCONTRAST CT DOSE: 537.48 mGy.cm HISTORY: syncope TECHNIQUE: Multiaxial CT images of the head were performed without the use of intravenous contrast. A utomated exposure control was utilized for this study. A dose lowering technique was utilized adheri ng to the principles of ALARA. Comparison: Head CT 09/04/2019. Findings: The paranasal sinuses and mastoid air cells are clear. The calvarium and skull base are int act. There is no mass, hematoma, midline shift, acute infarct. White matter hypodensity is nonspecifi c but suggestive of microvascular ischemic change. The ventricles and sulci demonstrate mild age-rela jermaine involutional changes. Impression: No significant change compared to the prior study. No acute intracranial abnormality. ACT 112: Negative or not required by law. Electronically signed by: Marcelino Will M.D. 01/05/2020 4:50 PM
[2020-01-05 16:53] LABS: Magnesium 1.7 mg/dl (1.8-2.4)
[2020-01-05 17:00] LABS: T4 Free Thyroxine 1.14 ng/dl (0.8-1.6)
--- NOTE | 2020-01-05 17:48 | History & Physical Report ---
Date of Service January 05, 2020 Assessment & Plan (1) Syncope: (2) HTN (hypertension): (3) Low bicarbonate level: (4) TSH elevation: (5) GERD (gastroesophageal reflux disease): (6) CKD (chronic kidney disease), stage III: (7) Dyslipidemia: (8) DM type 2 (diabetes mellitus, type 2): UA, Start Rocephin until UA back and or cultures. She was here in Sep 2019 with SIRS and e coli bacteremia, IVFs, Neurology eval, MRI Brain, SSI, TTE, Patient is sick euthyroid, TSH high and T4 normal, Replace Mag, OBS tele, Mild Gapped Metabolic acidemia ROS-No Headache, No Visual Changes, + Nausea, + Vomiting, No Fever, No Chills, No Neck Pain or Stiffness, No Chest Pain, No Palpitations, No SOB, No PICKERING, No Cough, No Sputum, No Wheezing, No Abdominal Pain, No Diarrhea, No Hematemesis, No Hemoptysis, No Unexpected Weight Loss, No Flank pain, No Melena, No Hematochezia, No Frequency, No Urgency, No Burning, No Hematuria, No Rashes, No Diaphoresis. Appetite is Normal, +L hand pain, +Weakness, + Syncope c Collapse out 1-3 mins Physical Exam Gen-AAO x 3, NAD, Afebrile, EMMONAK, Obese Head-NCAT, EOMI, PERRLA, Anicteric Sclera, No Posterior Pharyngeal Erythema Neck-Supple, No JVD, No Thyromegaly, No Masses, No LAD, No Bruits Lungs-Clear to Auscultation Bilaterally, No Rales, No Rhonchi, No Wheezing, No Crepitus Chest-No S4, +S1, +S2, No S3, No Murmurs, No Rubs, No Gallops, No Ectopy Abdomen-Soft, Bowel Sounds Present, Non Tender, Non Distended, No Hepatomegaly, No Splenomegaly, No Palpable Masses, No Rebound, No Rigidity, No Guarding Musculoskeletal-Full Range of Motion Bilaterally, No CVAT Extremities-No Cyanosis, No Clubbing, No Edema Nuero-Cranial Nerves II-XII grossly intact, Motor WNL, DTRs WNL, Strength WNL, Non Focal Psych-Normal Mood History of Present Illness 84 YO female c PMH of SIRS in September from UTI-E Coli in blood, HTN, CKD, and DM II presents after a syncopal episode at home. She ate lunch and after lunch got severe cramps and pain in L Hand-Not unusual for her. She felt funny and weak and was nauseous. She then went to the bathroom. Her daughter told her she yelled out and when her daughter arrived she was passed out for 1-3 mins. She was answering questions appropriately, but slowly and was somewhat somnolent. When she came to she said she knew where she was. She was on the toilet and started to vomit. FH Mother of Breast CA and Skin CA, F of Old age, 2 Healthy Sons and 2 Healthy daughters, & Sisters and 5 brothers-2 sisters and 3 brothers are - CAD, Leukemia Primary Care Provider: Ernesto Alston, Allergies Allergy/AdvReac Type Severity Reaction Status Date / Time ezetimibe Allergy Intermediate . Unverified 09/04/19 19:40 atorvastatin Allergy Mild Unknown Unverified 09/04/19 19:40 chlorthalidone Allergy Mild Unknown Unverified 09/04/19 19:40 diltiazem Allergy Mild Unknown Unverified 09/04/19 19:40 ibuprofen Allergy Mild Unknown Unverified 09/04/19 19:40 lisinopril Allergy Mild Unknown Unverified 09/04/19 19:40 naproxen Allergy Mild Unknown Unverified 09/04/19 19:40 NSAIDS (Non-Steroidal Allergy Unknown . Verified 09/04/19 19:40 Anti-Inflamma simvastatin Allergy Unknown . Unverified 09/04/19 19:40 Home Medications Home Medications Medication Instructions Recorded Confirmed Type amoxicillin 2,000 mg PO UD 07/12/18 01/05/20 History aspirin 81 mg PO DAILY 07/12/18 01/05/20 History atenolol 100 mg PO QAM 07/12/18 01/05/20 History cholecalciferol (vitamin D3) 1,000 unit PO QAM 07/12/18 01/05/20 History [Vitamin D3] glipizide 10 mg PO BID 07/12/18 01/05/20 History hydrochlorothiazide 12.5 mg PO QAM 07/12/18 01/05/20 History insulin glargine 22 unit SUBCUT HS 07/12/18 01/05/20 History losartan 100 mg PO QAM 07/12/18 01/05/20 History omeprazole 20 mg PO QAM 07/12/18 01/05/20 History acetaminophen [Tylenol] 650 mg PO Q6H PRN 09/04/19 01/05/20 History cyclobenzaprine 5 mg PO BID PRN 09/04/19 01/05/20 History Past Med/Surg History Medical History CKD (chronic kidney disease), stage III (Chronic) DM type 2 (diabetes mellitus, type 2) (Chronic) Dyslipidemia (Chronic) GERD (gastroesophageal reflux disease) (Chronic) Hypertension (Chronic) Pulmonary nodule (Chronic) Rectal bleeding (Chronic) Surgical History History of appendectomy (Chronic) History of bowel resection (Chronic) History of hysterectomy (Chronic) History of total left knee replacement (Chronic) Hx laparoscopic cholecystectomy (Chronic) Family History Other No significant family history Social History Preferred Language: Greek Communication Ability: Effective Med Aide Required: No Beliefs That Will Affect Care: None Current Living Situation: Spouse Feels Safe at Home: Yes Smoking Status: Never smoker Second Hand Exposure: No ; Hx Alcohol Use: No Hx Substance Use: No Results & Data Results & Data ([facility]) Vital Signs (Past 12 Hours) Vital Signs Temp Pulse Resp BP Pulse Ox 01/05/20 17:35 78 17 171/63 H 97 01/05/20 17:00 76 20 146/58 H 97 01/05/20 16:33 78 21 156/94 H 98 01/05/20 15:30 64 16 168/59 H 96 01/05/20 15:25 63 21 152/75 H 97 01/05/20 14:56 36.5 C 66 18 197/71 H 97 Allergies ezetimibe Allergy (Intermediate, Unverified 09/04/19 19:40) . atorvastatin Allergy (Mild, Unverified 09/04/19 19:40) Unknown chlorthalidone Allergy (Mild, Unverified 09/04/19 19:40) Unknown diltiazem Allergy (Mild, Unverified 09/04/19 19:40) Unknown ibuprofen Allergy (Mild, Unverified 09/04/19 19:40) Unknown lisinopril Allergy (Mild, Unverified 09/04/19 19:40) Unknown naproxen Allergy (Mild, Unverified 09/04/19 19:40) Unknown NSAIDS (Non-Steroidal Anti-Inflamma Allergy (Unknown, Verified 09/04/19 19:40) . simvastatin Allergy (Unknown, Unverified 09/04/19 19:40) . Height/Weight/Isolation Height 5 ft 2 in Weight 81 kg Chemistry 01/05/20 01/05/20 15:42 16:27 Sodium 136 Potassium 4.3 Chloride 105 Carbon Dioxide 19 L Anion Gap 12.0 H BUN 32 H Creatinine 1.72 H Glucose 169 H Code Status & VTE Plan VTE Prophylaxis Plan VTE Prophylaxis will be ordered: Yes (1) Syncope Syncope type: unspecified Qualified Code(s): R55 - Syncope and collapse (2) HTN (hypertension) Hypertension type: unspecified Qualified Code(s): I10 - Essential (primary) hypertension
[2020-01-05] MEDS ORDERED: MAGNESIUM HYDROXIDE SUSP 30 ML UDC PO PRN (19:29)
[2020-01-05] MEDS ORDERED: POLYETHYLENE (MIRALAX) 17 GM PACK PO PRN (19:29)
[2020-01-05] MEDS ORDERED: ONDANSETRON INJ 2 MG/ML 2 ML VIAL IV PRN (19:29)
[2020-01-05] MEDS ORDERED: GLUCOSE 10 TABS/TUBE PO PRN ×2 (19:29→20:00)
[2020-01-05] MEDS ORDERED: GLUCOSE 40% GEL 15 GM TUBE PO PRN ×2 (19:29→20:00)
[2020-01-05] MEDS ORDERED: DEXTROSE 50% 50 ML SYRINGE IV PRN ×2 (19:29→20:00)
[2020-01-05] MEDS ORDERED: CARBOHYDRATES FOR HYPOGLYCEMIA PO PRN ×2 (19:29→20:00)
[2020-01-05] MEDS ORDERED: ACETAMINOPHEN 325 MG TAB PO PRN (19:29)
[2020-01-05] MEDS ORDERED: CYCLOBENZAPRINE HCL 5 MG TAB PO PRN (19:29)
[2020-01-05] MEDS ORDERED: GLUCAGON FOR INJ 1 MG VIAL SQ PRN ×2 (19:29→20:00)
[2020-01-05] MEDS ORDERED: PHARMACY GLYCEMIC MGMT CONSULT PRN (19:49)
[2020-01-05] MEDS ORDERED: cefTRIAXone SODIUM 2,000 MG in DEXTROSE 5% 50 ML IV SCH (20:00)
--- NOTE | 2020-01-05 20:03 | Pharmacy Report ---
Pharmacy Glycemic Short Note 2 - Date of Service January 05, 2020 - Glycemic Short BSG Results (Last 24 hours): 01/05/20 15:42 Glucose 169 H OUTPATIENT ANTIDIABETIC REGIMEN: * glipizide 10mg po BID * Lantus 22 units sq HS * HbA1c = 8.4% from 07/03/18 ASSESSMENT: * Ordered A1c for 5/4 am. Will continue home dose Lantus for now. Glipizide on hold. Ordered Novolog ACHS with CF/CR. PLAN FOR INPATIENT GLYCEMIC CONTROL: * Hold outpatient oral diabetes medications * Basal insulin * Lantus 22 units SQ HS * Bolus insulin * NovoLog per scale ACHS or Q6hrs while NPO * Goal Range: Low 120 mg/dL - High 160 mg/dL * Correction Factor: 30 mg/dL/unit * Nutritional / Prandial insulin per carb ratio of 1 unit per 12 grams CHO consumed
--- NOTE | 2020-01-05 20:09 | Communication Note ---
Date of Service: January I just received a consultation regarding a syncopal event on Mrs. Gentile. I reviewed the chart and recorded history along with laboratory studies and imaging studies of her brain The history suggests a vagal mediated syncopal event related to the pain and nausea and I do not see anything that would suggest a seizure based on the history I will attempt to get an EEG done a much articulation is coming in to do these types of studies during this COVID-19 restriction. I will make a visit to the bedside and review the history but at this point doubt that neurology can recommend anything further in terms of evaluation and certainly if the EEG is done and normal then we will be signing off the case unless of course the history obtained is different than the one recorded on the chart Blair Sullivan MD
[2020-01-05] MEDS ORDERED: INSULIN GLARGINE SOLOSTAR 100 UNITS/ML 3 ML PEN SQ SCH (21:00)
[2020-01-05] MEDS: SODIUM CHLORIDE 0.9% 1000ML 1,000 ML IV SCH (22:08)
[2020-01-05] MEDS: MAGNESIUM OXIDE 400 MG TAB PO SCH (22:11)
[2020-01-05] MEDS: HEPARIN SOD 5,000 UNIT/0.5 ML VIAL SQ SCH (22:11)
[2020-01-05] MEDS: ASPIRIN 81 MG ECTAB PO SCH (22:12)
[2020-01-05] MEDS: INSULIN ASPART 100 UNITS/ML 3 ML PEN SC SCH (22:14)
[2020-01-06 00:18] LABS: Appearance Urine Clear (Clear); Bilirubin Urine Negative (Negative); Blood Urine Negative (Negative); Color Urine Yellow; Glucose Urine UA Negative (Negative); Ketones Urine Negative (Negative); Leukocyte Esterase Urine Negative (Negative); Nitrite Urine Negative (Negative); Protein Urine Negative (Negative); Specific Gravity Urine 1.013 (1.000-1.030); Urobilinogen Urine Negative (Negative)
[2020-01-06] MEDS: HEPARIN SOD 5,000 UNIT/0.5 ML VIAL SQ SCH (05:29)
[2020-01-06 06:48] LABS: Hematocrit (blood only) 35.4 % (37-47); Hemoglobin 11.8 g/dL (12.0-16.0); Mean Corpuscular Hemoglobin 29.1 pg (25-34); Mean Corpuscular Hgb Conc 33.3 g/dL (32-36); Mean Corpuscular Volume 87.2 fL (80-100); Mean Platelet Volume 9.8 fL (7.4-10.4); Platelet Count 233 K/uL (130-400); RDW Coefficient of Variation 12.5 % (11.5-14.5); Red Blood Count 4.06 M/uL (4.2-5.4); White Blood Count 9.98 K/uL (4.8-10.8)
--- NOTE | 2020-01-06 07:09 | Discharge Summary ---
Date of Service January 06, 2020 Admission HPI Per Admitting Provider 84 YO female c PMH of SIRS in September from UTI-E Coli in blood, HTN, CKD, and DM II presents after a syncopal episode at home. She ate lunch and after lunch got severe cramps and pain in L Hand-Not unusual for her. She felt funny and weak and was nauseous. She then went to the bathroom. Her daughter told her she yelled out and when her daughter arrived she was passed out for 1-3 mins. She was answering questions appropriately, but slowly and was somewhat somnolent. When she came to she said she knew where she was. She was on the toilet and started to vomit. Admission Exam Per Admitting Provider Physical Exam Gen-AAO x 3, NAD, Afebrile Head-NCAT, EOMI, PERRLA, Anicteric Sclera, No Posterior Pharyngeal Erythema Neck-Supple, No JVD, No Thyromegaly, No Masses, No LAD, No Bruits Lungs-Clear to Auscultation Bilaterally, No Rales, No Rhonchi, No Wheezing, No Crepitus Chest-No S4, +S1, +S2, No S3, No Murmurs, No Rubs, No Gallops, No Ectopy Abdomen-Soft, Bowel Sounds Present, Non Tender, Non Distended, No Hepatomegaly, No Splenomegaly, No Palpable Masses, No Rebound, No Rigidity, No Guarding Musculoskeletal-Full Range of Motion Bilaterally, No CVAT Extremities-No Cyanosis, No Clubbing, No Edema Nuero-Cranial Nerves II-XII grossly intact, Motor WNL, DTRs WNL, Strength WNL, Non Focal Psych-Normal Mood Principal Diagnosis Vasovagal Syncope HTN EUSEBIO Met Acidosis GERD CKD DLD DM II Discharge Exam Physical Exam Gen-AAO x 3, NAD, Afebrile Head-NCAT, EOMI, PERRLA, Anicteric Sclera, No Posterior Pharyngeal Erythema Neck-Supple, No JVD, No Thyromegaly, No Masses, No LAD, No Bruits Lungs-Clear to Auscultation Bilaterally, No Rales, No Rhonchi, No Wheezing, No Crepitus Chest-No S4, +S1, +S2, No S3, No Murmurs, No Rubs, No Gallops, No Ectopy Abdomen-Soft, Bowel Sounds Present, Non Tender, Non Distended, No Hepatomegaly, No Splenomegaly, No Palpable Masses, No Rebound, No Rigidity, No Guarding Musculoskeletal-Full Range of Motion Bilaterally, No CVAT Extremities-No Cyanosis, No Clubbing, No Edema Nuero-Cranial Nerves II-XII grossly intact, Motor WNL, DTRs WNL, Strength WNL, Non Focal Psych-Normal Mood Discharge Data Allergies Allergy/AdvReac Type Severity Reaction Status Date / Time ezetimibe Allergy Intermediate . Unverified 09/04/19 19:40 atorvastatin Allergy Mild Unknown Unverified 09/04/19 19:40 chlorthalidone Allergy Mild Unknown Unverified 09/04/19 19:40 diltiazem Allergy Mild Unknown Unverified 09/04/19 19:40 ibuprofen Allergy Mild Unknown Unverified 09/04/19 19:40 lisinopril Allergy Mild Unknown Unverified 09/04/19 19:40 naproxen Allergy Mild Unknown Unverified 09/04/19 19:40 NSAIDS (Non-Steroidal Allergy Unknown . Verified 09/04/19 19:40 Anti-Inflamma simvastatin Allergy Unknown . Unverified 09/04/19 19:40 Consultations 01/05/20 16:58 ED Decision to Admit Stat 01/05/20 19:29 Consult Neurology Routine Ordered Studies 01/05/20 15:00 CT head/brain wo con Stat 01/06/20 01:26 MR brain wo con Routine Current Diagnoses Type 2 diabetes mellitus without complications (01/05/20) Hyperlipidemia, unspecified (01/05/20) Other disorders of electrolyte and fluid balance, not elsewhere classified (01/05/20) Essential (primary) hypertension (01/05/20) Gastro-esophageal reflux disease without esophagitis (01/05/20) Chronic kidney disease, stage 3 (moderate) (01/05/20) Syncope and collapse (01/05/20) Other specified abnormal findings of blood chemistry (01/05/20) Allergies ezetimibe Allergy (Intermediate, Unverified 09/04/19 19:40) . atorvastatin Allergy (Mild, Unverified 09/04/19 19:40) Unknown chlorthalidone Allergy (Mild, Unverified 09/04/19 19:40) Unknown diltiazem Allergy (Mild, Unverified 01/01/20 19:40) Unknown ibuprofen Allergy (Mild, Unverified 09/04/19 19:40) Unknown lisinopril Allergy (Mild, Unverified 09/04/19 19:40) Unknown naproxen Allergy (Mild, Unverified 09/04/19 19:40) Unknown NSAIDS (Non-Steroidal Anti-Inflamma Allergy (Unknown, Verified 09/04/19 19:40) . simvastatin Allergy (Unknown, Unverified 09/04/19 19:40) . Height/Weight/Isolation Height 5 ft 2 in Weight 81.8 kg Chemistry 01/05/20 01/05/20 15:42 16:27 Sodium 136 Potassium 4.3 Chloride 105 Carbon Dioxide 19 L Anion Gap 12.0 H BUN 32 H Creatinine 1.72 H Glucose 169 H Urinalysis 01/06/20 00:08 Urine Color Yellow Urine Appearance Clear Urine pH 5.0 Ur Specific [place] 1.013 Urine Protein Negative Urine Glucose (UA) Negative Urine Ketones Negative Urine Blood Negative Urine Nitrite Negative Urine Bilirubin Negative Hospital Course (1) Syncope: (2) HTN (hypertension): (3) Low bicarbonate level: (4) TSH elevation: (5) GERD (gastroesophageal reflux disease): (6) CKD (chronic kidney disease), stage III: (7) Dyslipidemia: (8) DM type 2 (diabetes mellitus, type 2): UA was negative, Rocephin stopped. She was here in Sep 2019 with SIRS and e coli bacteremia, IVFs, D/W Neurology + V/V syncope, MRI Brain + Sm Vessel Disease, EEG cancelled, SSI, TTE cancelled, Patient is sick euthyroid, TSH high and T4 normal, Replaced Mag, DC home today, Mild Gapped Metabolic acidemia resolved c IVFs, Total Time Total Time Spent Total Time Spent (In Minutes): 45 mins Total Time Includes: Examination of the Patient, Discharge Planning, Medication Reconciliation and Communication With Other Providers Discharge Plan Discharge Items Patient Disposition: Home - Self-Care Reason For Visit: SYNCOPE Discharge Diagnosis: Vasovagal Syncope HTN EUSEBIO Met Acidosis GERD CKD DLD DM II Condition on Discharge: Good Activity: Resume your previous activity Lifting: Gradually increase as tolerated Bathing: No limitations Sexual Activity: When tolerated Exercise/Sports: Gradually increase as tolerated Driving/Machine Use: No limitations Weightbearing: Full weightbearing Non-emergency contact: Primary Care Provider Call non-emergency contact if: you have any medication questions Follow-up/Referrals: Ernesto Alston, [Primary Care Provider] - Diet: Carb Consistent or DM2 Addtl Attending Provider Instructions: none Pending Studies at Discharge: No Stand-Alone Forms: My [facility], Smoking Cessation Medications and DC Order Prescriptions: Continued amoxicillin 500 mg capsule 2,000 mg PO UD RF: 0 glipizide 10 mg tablet 10 mg PO BID RF: 0 aspirin 81 mg Tablet,Delayed Release (Dr/Ec) 81 mg PO DAILY RF: 0 omeprazole 20 mg capsule,delayed release(DR/EC) 20 mg PO QAM RF: 0 losartan 100 mg tablet 100 mg PO QAM RF: 0 atenolol 50 mg tablet 100 mg PO QAM RF: 0 cholecalciferol (vitamin D3) [Vitamin D3] 1,000 unit Tablet 1,000 unit PO QAM RF: 0 hydrochlorothiazide 12.5 mg tablet 12.5 mg PO QAM RF: 0 insulin glargine 100 unit/mL (3 mL) insulin pen 22 unit subcut HS RF: 0 acetaminophen [Tylenol] 325 mg Tablet 650 mg PO Q6H PRN (Reason: Pain) RF: 0 cyclobenzaprine 5 mg tablet 5 mg PO BID PRN (Reason: Muscle Spasm) RF: 0 Discharge Orders: Discharge Order (Routine); Ordered 01/06/20 Ordered By: Neo Rodriguez Admission Data Admit Date/Time: 01/05/20 17:37 Attending Provider: Neo Rodriguez Admit Provider: Neo Rodriguez Primary Care Provider: Ernesto Alston Other Providers: Neo Rodriguez
[2020-01-06 07:18] LABS: Albumin Level 2.8 gm/dl (3.4-5.0); BUN Creatinine Ratio 19.3 (10-20); Calcium 8.3 mg/dl (8.5-10.1); Creatinine Clr Calc Pharmacy 30.6 ml/min; Est GFR (African American) 42.1; Est GFR (Non-African American) 36.4; Potassium 4.1 mmol/L (3.5-5.1)
[2020-01-06 07:22] VITALS: O2SAT 96
[2020-01-06 07:24] LABS: Albumin Globulin Ratio 0.7 (0.9-2); Bilirubin,Total 0.3 mg/dl (0.2-1); Globulin 4.3 gm/dl (2.5-4.0); Total Protein 7.1 gm/dl (6.4-8.2)
--- NOTE | 2020-01-06 07:30 | Magnetic Resonance Report ---
MR brain wo con CLINICAL HISTORY: 84 years-old Female presenting with Syncope, dizziness, vomiting, visual disturbanc e, presyncopal episode, head and neck pain. TECHNIQUE: Multisequence, multiplanar MR imaging of the brain was performed without the use of intrav enous contrast. IV contrast: None. COMPARISON: Noncontrast CT of the head from 01/05/2020. FINDINGS: Localizer images: Unremarkable. Bone marrow signal intensity within the calvarium within normal limits. Normal midline sagittal structures. Proportional ventricular and sulcal prominence, likely age-relate d parenchymal volume loss. No mass effect or midline shift. No restricted diffusion or hemorrhage. Pe riventricular and subcortical white matter T2/FLAIR hyperintensity, nonspecific but likely indicative of chronic small vessel ischemic change. No extra-axial fluid collection. T2 skull base flow voids preserved. [place] lenses are absent on the left. Trace fluid in the left mastoid air cells. IMPRESSION: 1. Chronic small vessel ischemic change. No acute intracranial abnormality. ACT 112: Negative or not required by law. Electronically signed by: Eddie Billy M.D. 01/06/2020 7:28 AM
[2020-01-06] MEDS: ASPIRIN 81 MG ECTAB PO SCH (08:44)
[2020-01-06] MEDS: MAGNESIUM OXIDE 400 MG TAB PO SCH (08:44)
--- NOTE | 2020-01-06 08:55 | Electrocardiogram Report ---
Test Reason : Blood Pressure : / mmHG Vent. Rate : 064 BPM Atrial Rate : 064 BPM P-R Int : 172 ms QRS Dur : 096 ms QT Int : 406 ms P-R-T Axes : 062 -33 013 degrees QTc Int : 418 ms Normal sinus rhythm Incomplete right bundle branch block Left axis deviation Abnormal ECG When compared with ECG of 04-SEP-2019 18:34, No significant change Confirmed by Jaylon Luke ([id number]) on 01/06/2020 8:54:58 AM Referred By: REFERRED SELF Confirmed By:Jaylon Luke
[2020-01-06] MEDS ORDERED: hydroCHLOROthiazide 25 MG TAB PO SCH (09:00)
[2020-01-06] MEDS ORDERED: CHOLECALCIFEROL 1,000 UNITS 25 MCG TAB PO SCH (09:00)
[2020-01-06] MEDS ORDERED: LOSARTAN POTASSIUM 50 MG TAB PO SCH (09:00)
[2020-01-06] MEDS ORDERED: PANTOprazole 40 MG TAB PO SCH (09:00)
[2020-01-06] MEDS ORDERED: ATENOLOL 50 MG TABLET PO SCH (09:00)
[2020-01-06] MEDS: INSULIN ASPART 100 UNITS/ML 3 ML PEN SC SCH ×2 (09:02→12:44)
[2020-01-06 09:11] LABS: Estimated Average Glucose 186 mg/dl; Hemoglobin A1C 8.1 % (4.5-5.6)
--- NOTE | 2020-01-06 09:24 | XCELERA ---
[id number]
[2020-01-06] MEDS: SODIUM CHLORIDE 0.9% 1000ML 1,000 ML IV SCH (10:19)
[2020-01-06 11:41] VITALS: PULSE 61; TEMP 98.1
[2020-01-06 12:19] VITALS: BP 162/75
== END 2020-01-06 13:40 | disposition home or self-care (01) ==
LOC: ED 14:48 → 2N 14:48

== ENCOUNTER 2023-09-06 03:04 | Inpatient (IN) ==
[2023-09-06] MEDS ORDERED: ALBUT/IPRATROP 3MG/0.5MG NEB 3 ML VIAL ONE (03:21)
--- NOTE | 2023-09-06 03:39 | Emergency Department Note ---
Impression & Plan Hypoxia, COVID-19 Admit to the [facility] ED Provider Note NAME: KIM DAVID AGE: 88 SEX: Female INFORMANT: Patient ED PROVIDER(S): Janeth Lucas DO CHIEF COMPLAINT: Shortness of breath and cough PLAN: Disposition: Admit to the [facility] MEDICAL DECISION MAKING: This is an 88-year-old female patient who presents the emergency department with increased shortness of breath and productive cough. The patient was diagnosed with COVID on 08/27. She has had persistent symptoms since that time. EMS was called to her home for her who is having similar symptoms but upon EMS arrival, they felt that she was also in need of emergent care. O2 saturations were 89% on room air. She was given a DuoNeb treatment and transported here. U reji presentation to the ER, the patient has significant productive cough. She appeared quite dyspneic. She was placed on supplemental oxygen for hypoxia. She was given a dose of IV Decadron. Chest x-ray showed no evidence of acute consolidation or infiltrate. Laboratory studies showed a white blood cell count of 12.7. Hemoglobin was 11.3. Sodium was 132. Renal functions were at baseline. Glucose was 148. Lactate and procalcitonin were normal. I discussed the case with the [facility] and the patient will require admission to the hospital on supplemental oxygen. A sputum culture was obtained. Care/management discussed with: The patient's and the [facility] Triage Nursing notes: Reviewed and agree with them. Vital Signs: reviewed and remarkable for hypertension Additional History obtained from: EMS and the patient's Differential Diagnosis: Hypoxia, COVID-19, bronchitis, pneumonia, respiratory failure Diagnostics, independently interpreted by me: ECG: Normal sinus rhythm at a rate of [address] segment elevation or signs of ischemia. There is no ectopy. Cardiac Monitoring: Normal sinus rhythm at a rate of 82 Imaging studies: Portable chest x-ray: Cardiomegaly with no obvious pulmonary edema or pulmonary infiltrate as per my independent interpretation HPI: 88 year old Female arrives for evaluation of cough and shortness of breath. Patient was diagnosed last week with COVID. Since that time she has had a cough and was slightly short of breath. Her shortness of breath worsened tonight and her cough is productive of thick yellow sputum.. PAST MEDICAL HISTORY: See Below, PAST SURGICAL HISTORY: See Below, SOCIAL HISTORY: Lives with her , does not smoke HOME MEDICATIONS: See list ALLERGIES: See extensive list VITALS: See Below PHYSICAL EXAMINATION: HEENT: Head - normocephalic and atraumatic. Pupils are equal, round, and reactive to light. Extraocular eye muscles are intact, and sclera are anicteric. Nose - moist nasal mucosa without discharge. Mouth - moist buccal mucosa. Oropharynx is nonerythematous and there is no tonsillar exudate or edema noted. Neck: Supple; no JVD or cervical lymphadenopathy Heart: Regular rate and rhythm. There is a normal S1 and S2 with no murmurs, clicks, or gallops appreciated. Lungs: Diffuse rhonchi in both lung bases with no wheezing appreciated Abdomen: Soft, completely nontender, nondistended, with good bowel sounds. There are no palpable pulsatile masses or hepatosplenomegaly. There is no guarding, rigidity, or rebound noted. Extremities: 2+ pitting edema both lower extremities there are easily palpable peripheral pulses. Skin: warm and dry with good turgor and no rashes. Emergency department treatment: potline monitor, supplemental oxygen, IV Decadron Emergency department course: The patient was evaluated in room A12B. A complete history and physical was performed. Patient was hypoxic on presentation was placed on supplemental oxygen. An order was placed for continuous cardiac monitoring. The patient was in a normal sinus rhythm at a rate of 82. A twelve-lead EKG was obtained as described above. A portable chest x-ray was performed. A sputum culture was obtained. Patient was given a dose of IV Decadron. Upon repeat assessment, the patient's cough had improved after receiving the steroids. She required up to 4 L of O2 to maintain her O2 saturations. Past Med/Surg History Medical History (Updated 09/07/23 @ 07:50 by Janeth Lucas DO) Pulmonary nodule GERD (gastroesophageal reflux disease) CKD (chronic kidney disease), stage III Dyslipidemia DM type 2 (diabetes mellitus, type 2) Rectal bleeding Hypertension Surgical History History of hysterectomy Hx laparoscopic cholecystectomy History of appendectomy History of bowel resection History of total left knee replacement Family History Other No significant family history Social History Smoking Status: Never smoker Second Hand Exposure: No; Do You Dip or Chew Tobacco: No; Hx Alcohol Use: No Hx Substance Use: No Preferred Language: Slovak Communication Ability: Effective Personal Lines Account Manager Required: No Beliefs That Will Affect Care: None Current Living Situation: Spouse Other Information That Helps Us Care for You: No Feels Safe at Home: Yes Safety Concerns: Feels Safe At This Time Assistive Devices: Cane and Glasses Allergies Allergies Allergy/AdvReac Type Severity Reaction Status Date / Time atorvastatin Allergy Severe RENAL Verified 06/15/21 00:36 COMPLICATIONS diltiazem Allergy Severe KIDNEY Verified 06/15/21 00:36 PROBLEMS ezetimibe Allergy Severe KIDNEY Verified 06/15/21 00:36 PROBLEMS lisinopril Allergy Severe RENAL Verified 06/15/21 00:36 COMPLICATIONS simvastatin Allergy Severe RENAL Verified 06/15/21 00:36 COMPLICATIONS chlorthalidone Allergy Mild Unknown Verified 06/15/21 00:36 ibuprofen Allergy Unknown Unknown Verified 06/15/21 00:36 naproxen Allergy Unknown Unknown Verified 06/15/21 00:36 NSAIDS (Non-Steroidal Allergy Unknown INTERSITIAL Verified 06/15/21 00:37 Anti-Inflamma NEPHRITIS PER GMG pneumococcal vaccine AdvReac Severe ARM Verified 06/15/21 00:36 [From Prevnar 13 (PF)] REDDENED, SORE Home Meds Home Medications Medication Instructions Recorded Confirmed atenolol 50 mg tablet 50 mg PO QAM 07/12/18 09/06/23 glipizide 10 mg tablet 10 mg PO QAM 07/12/18 09/06/23 insulin glargine 100 unit/mL (3 22 unit subcut HS 07/12/18 09/06/23 mL) subcutaneous pen cholecalciferol (vitamin D3) 50 50 mcg PO DAILY 06/15/21 09/06/23 mcg (2,000 unit) capsule (Vitamin D3) amlodipine 2.5 mg tablet 2.5 mg PO DAILY 08/27/23 09/06/23 clonidine HCl 0.1 mg tablet 0.1 mg PO TID 08/27/23 09/06/23 furosemide 20 mg tablet 20 mg PO QAM 08/27/23 09/06/23 Results & Data (ED) Vital Signs Vital Signs - 24 hr 09/06/23 03:24 09/06/23 03:24 09/06/23 03:24 Temperature 36.6 C Temperature Source Oral Pulse Rate 89 Pulse Rhythm Respiratory Rate 26 H Respiratory Effort / Characteristics Spontaneous Labored Short of Breath Short of Breath Respiratory Depth Shallow Shallow Respiratory Pattern Regular Regular Blood Pressure 189/72 H Blood Pressure Mean 111 Pulse Oximetry 89 L 93 Oxygen Delivery Method Room Air Nasal Cannula Room Air Nasal Cannula Oxygen Flow Rate 2 Sepsis Recent Fever Within 48 Hours Yes Sepsis New/Unexplained Change in Mental Status N/A Sepsis Action Taken by Nursing No Action Required Oxygen Flow Rate - Titration 2 Pulse Oximetry Post Tiitration 93 09/06/23 03:26 09/06/23 03:28 Temperature Temperature Source Pulse Rate 87 82 Pulse Rhythm Regular Respiratory Rate 19 Respiratory Effort / Characteristics Respiratory Depth Respiratory Pattern Blood Pressure Blood Pressure Mean Pulse Oximetry 95 Oxygen Delivery Method Nasal Cannula Oxygen Flow Rate 2 Sepsis Recent Fever Within 48 Hours Sepsis New/Unexplained Change in Mental Status Sepsis Action Taken by Nursing Oxygen Flow Rate - Titration Pulse Oximetry Post Tiitration Laboratory Data 09/07/23 03:53 09/07/23 03:53 Lab Results 09/06/23 Range/Units 03:20 WBC 12.78 H (4.8-10.8) K/ul RBC 3.92 L (4.20-5.40) M/uL Hgb 11.3 L (12.0-16.0) g/dl Hct 33.1 L (37.0-47.0) % MCV 84.4 (80.0-100.0) fL MCH 28.8 (25.0-34.0) pg MCHC 34.1 (32.0-36.0) g/dL RDW Std Deviation 36.2 L (36.4-46.3) fL RDW Coeff of Ilda 11.9 (11.5-14.5) % Plt Count 308 (130-400) K/uL MPV 9.6 (9.4-12.4) fL Immature Gran % (Auto) 0.4 % Neut % (Auto) 75.9 % Lymph % (Auto) 12.1 % [place] % (Auto) 10.5 % Eos % (Auto) 0.9 % Baso % (Auto) 0.2 % Neut # (Auto) 9.70 H (1.40-6.50) K/uL Lymph # (Auto) 1.55 (1.20-3.40) K/uL [place] # (Auto) 1.34 H (0.11-0.59) K/uL Eos # (Auto) 0.12 (0.00-0.50) K/uL Baso # (Auto) 0.02 (0.00-0.20) K/uL Immature Gran # (Auto) 0.05 (0.01-0.20) K/uL Sodium 132 L (136-145) mmol/L Potassium 3.9 (3.5-5.1) mmol/L Chloride 103 (98-107) mmol/L Carbon Dioxide 19 L (21-32) mmol/L Anion Gap 10 (3-11) BUN 30 H (6-23) mg/dl Creatinine 1.26 H (0.6-1.2) mg/dl Est Cr Clr Drug Dosing 30.0 ml/min Est GFR ( Amer) 43.7 ml/min Est GFR (Non-Af Amer) 37.7 ml/min BUN/Creatinine Ratio 23.8 H (10-20) Glucose 148 H (70-99(Fasting)) mg/dl Calcium 8.8 (8.6-10.3) mg/dl Total Bilirubin 0.4 (0.2-1.0) mg/dl AST 27 (13-39) U/L ALT 17 (7-52) U/L Alkaline Phosphatase 88 (34-104) U/L Troponin I High Sens 12.9 (0-14) pg/ml Total Protein 7.6 (6.0-8.3) gm/dl Albumin 3.5 (3.4-5.0) gm/dl Globulin 4.1 H (2.5-4.0) gm/dl Albumin/Globulin Ratio 0.9 (0.9-2) Procalcitonin 0.09 (0-0.5) ng/ml Administered Medications Albuterol (Albut/Ipratrop 3mg/0.5mg Neb 3 Ml Vial) 3 ml NEB Q4R [facility]; Protocol Stop: 10/06/23 10:59 Last Admin: 09/07/23 06:54 Dose: 3 ml Documented By: Admin: 09/07/23 03:58 Dose: 3 ml Documented By: Admin: 09/06/23 23:59 Dose: 3 ml Documented By: Admin: 09/06/23 19:31 Dose: 3 ml Documented By: Admin: 09/06/23 14:48 Dose: 3 ml Documented By: Admin: 09/06/23 11:21 Dose: 3 ml Documented By: TANVIR Amlodipine Besylate (Amlodipine Besylate 5 Mg Tab) 2.5 mg PO DAILY PIOTR Stop: 10/06/23 08:59 Last Admin: 09/06/23 09:49 Dose: 2.5 mg Documented By: AMARJIT Atenolol (Atenolol 50 Mg Tablet) 50 mg PO QAM [facility]OT[facility] Stop: 10/06/23 08:59 Last Admin: 09/06/23 09:49 Dose: 50 mg Documented By: AMARJIT Clonidine HCl (Clonidine Hcl 0.1 Mg Tab) 0.1 mg PO TID PIOT[facility] Stop: 10/06/23 08:59 Last Admin: 09/06/23 21:55 Dose: 0.1 mg Documented By: Admin: 09/06/23 13:19 Dose: 0.1 mg Documented By: Admin: 09/06/23 09:49 Dose: 0.1 mg Documented By: AMARJIT Guaifenesin (Guaifenesin 600 Mg Tabcr) 1,200 mg PO Q12 PIOT[facility] Stop: 10/06/23 08:59 Last Admin: 09/06/23 21:55 Dose: 1,200 mg Documented By: Admin: 09/06/23 09:49 Dose: 1,200 mg Documented By: AMARJIT Heparin Sodium (Porcine) (Heparin Sod 5,000 Unit/0.5 Ml Vial) 5,000 units SQ Q8 PIOT[facility] Stop: 10/06/23 13:59 Last Admin: 09/07/23 06:30 Dose: 5,000 units Documented By: Admin: 09/06/23 22:12 Dose: 5,000 units Documented By: Admin: 09/06/23 15:32 Dose: 5,000 units Documented By: KARENA Dexamethasone 6 mg/ Syringe 1.5 mls @ 1 mls/min IV Q24H PIOT[facility] Stop: 10/07/23 05:59 Last Admin: 09/07/23 06:26 Dose: 1 mls/min Documented By: SHASTA Insulin Aspart (Insulin Aspart Per Unit Charge) 0 units SC ACHS [facility] Stop: 10/06/23 07:59 Last Admin: 09/06/23 21:57 Dose: Not Given Documented By: CAMPBELL Co-signed By: BA Admin: 09/06/23 18:25 Dose: 10 units Documented By: KARENA Co-signed By: SHEEBA Admin: 09/06/23 13:18 Dose: 14 units Documented By: KARENA Co-signed By: CASSIA Admin: 09/06/23 09:37 Dose: 5 units Documented By: AMARJIT Co-signed By: JIMENEZ Insulin Glargine (Lantus Per Unit Charge) 0 units SC HS [facility]; Protocol Stop: 10/06/23 20:59 Last Admin: 09/06/23 21:57 Dose: Not Given Documented By: CAMPBELL Vitamin D (Cholecalciferol 1,000 Units 25 Mcg Tab) 2,000 units PO DAILY PIOT[facility] Stop: 10/06/23 08:59 Last Admin: 09/06/23 09:48 Dose: 2,000 units Documented By: AMARJIT Discontinued Medications Dexamethasone (Dexamethasone Sod Inj 4 Mg/Ml Vial) 10 mg IV NOW STA Stop: 09/06/23 04:02 Last Admin: 09/06/23 04:20 Dose: 10 mg Documented By: NAHED Sodium Chloride (Nss) 1,000 mls @ 80 mls/hr IV .[id number] [facility] Stop: 09/07/23 08:29 Last Admin: 09/06/23 09:02 Dose: Not Given Documented By: AMARJIT Insulin Human NPH (Novolin-N (Nph) Per Unit Charge) 25 units SQ NOW STA Stop: 09/06/23 08:07 Last Admin: 09/06/23 09:37 Dose: 25 units Documented By: AMARJIT Co-signed By: JIMENEZ Discharge Plan Visit Data Chief Complaint: Shortness of Breath/Dyspnea Stated Complaint: SOB, Cough, Covid ED Provider: Janeth Lucas Discharge Problem: Hypoxia, COVID-19 Patient Disposition: Admitted As Inpatient Discharge Instructions Interventions: ED Discharge Assessment Last Done: 09/06/23 07:36
[2023-09-06 03:41] LABS: Basophils # (auto) 0.02 K/uL (0.00-0.20); Basophils % (auto) 0.2 %; Eosinophils # (auto) 0.12 K/uL (0.00-0.50); Eosinophils % (auto) 0.9 %; Hematocrit (blood only) 33.1 % (37.0-47.0); Hemoglobin 11.3 g/dl (12.0-16.0); Immature Granulocytes # (auto) 0.05 K/uL (0.01-0.20); Immature Granulocytes % (auto) 0.4 %; Lymphocytes # (auto) 1.55 K/uL (1.20-3.40); Lymphocytes % (auto) 12.1 %; Mean Corpuscular Hemoglobin 28.8 pg (25.0-34.0); Mean Corpuscular Hgb Conc 34.1 g/dL (32.0-36.0); Mean Corpuscular Volume 84.4 fL (80.0-100.0); Mean Platelet Volume 9.6 fL (9.4-12.4); Monocytes # (auto) 1.34 K/uL (0.11-0.59); Monocytes % (auto) 10.5 %; Neutrophils % (auto) 75.9 %; Platelet Count 308 K/uL (130-400); RDW Coefficient of Variation 11.9 % (11.5-14.5); RDW Standard Deviation 36.2 fL (36.4-46.3); Red Blood Count 3.92 M/uL (4.20-5.40); White Blood Count 12.78 K/ul (4.8-10.8)
[2023-09-06 04:00] LABS: Albumin Globulin Ratio 0.9 (0.9-2); Albumin Level 3.5 gm/dl (3.4-5.0); BUN Creatinine Ratio 23.8 (10-20); Bilirubin,Total 0.4 mg/dl (0.2-1.0); Calcium 8.8 mg/dl (8.6-10.3); Est GFR (African American) 43.7 ml/min; Est GFR (Non-African American) 37.7 ml/min; Globulin 4.1 gm/dl (2.5-4.0); Potassium 3.9 mmol/L (3.5-5.1); Total Protein 7.6 gm/dl (6.0-8.3)
[2023-09-06] MEDS ORDERED: DEXAMETHASONE SOD INJ 4 MG/ML VIAL IV STA (04:01)
[2023-09-06 04:05] LABS: Troponin I High Sensitivity 12.9 pg/ml (0-14)
--- NOTE | 2023-09-06 06:23 | History & Physical Report ---
Date of Service September 06, 2023 Assessment & Plan (1) COVID: (2) Acute hypoxic respiratory failure: (3) Pneumonia: (4) DM type 2 (diabetes mellitus, type 2): Plan Pt is an 88yoF with PMhx significant for HTN, CKD, and DM II admitted with acute hypoxic respiratory failure in the setting of a prior covid infection. Acute hypoxic respiratory failure COVID infection Pneumonia Pt hypoxic to 87%, WBC elevated, tachypneic Chest xray with pending, will await read to confirm/rule out pneumonia Sputum Cx ordered by ED pending COVID positive of 08/27 lactate normal Procal pending, consider abx if elevated and chest xray suggestive of pneumonia Decadron 10mg IV given in the ED Duonebs and mucinex scheduled Supportive care Supplemental oxygen as needed, currently on RA after decadron CKD Cr of 1.2 Appears to be at baseline upon further review of chart Received IV fluids in the ED Will hold off on further IV hydration at this time Push PO intake Hold nephrotoxic meds DMII Basal/bolus per protocol in setting of decadron/steroid use Pharmacy glycemic consult Hold home glipizide and insulin Continue other home meds as ordered CODE STATUS: Full code DVT prophy: Heparin SQ Diet: DMII Dispo: Med/surg tele History of Present Illness Chief Complaint: SOB Primary Care Provider: Ernesto Alston DO Pt is an 88yoF with PMhx significant for HTN, CKD, and DM II admitted with acute hypoxic respiratory failure in the setting of a prior covid infection. Brought in by son and . They state that she was diagnosed with COVID on [facility] and passed out at that time. Since then she has had a progressive worsening of her symptoms. In particular, they note a deep cough and feel like she cannot get anything out. Pt with significant hearing loss. They state they went over to the house to check on them and noted that they were both very ill and brought them in for further evaluation. Pt denies fevers or chills, States it does not hurt in chest when she coughs. Has been able to eat and drink. States is on lasix for edema though not on medication list provided. Allergies Allergy/AdvReac Type Severity Reaction Status Date / Time atorvastatin Allergy Severe RENAL Verified 06/15/21 00:36 COMPLICATIONS diltiazem Allergy Severe KIDNEY Verified 06/15/21 00:36 PROBLEMS ezetimibe Allergy Severe KIDNEY Verified 06/15/21 00:36 PROBLEMS lisinopril Allergy Severe RENAL Verified 06/15/21 00:36 COMPLICATIONS simvastatin Allergy Severe RENAL Verified 06/15/21 00:36 COMPLICATIONS chlorthalidone Allergy Mild Unknown Verified 06/15/21 00:36 ibuprofen Allergy Unknown Unknown Verified 06/15/21 00:36 naproxen Allergy Unknown Unknown Verified 06/15/21 00:36 NSAIDS (Non-Steroidal Allergy Unknown INTERSITIAL Verified 06/15/21 00:37 Anti-Inflamma NEPHRITIS PER [facility] pneumococcal vaccine AdvReac Severe ARM Verified 06/15/21 00:36 [From Prevnar 13 (PF)] REDDENED, SORE Home Medications Medication Instructions Recorded Confirmed Type atenolol 50 mg tablet 50 mg PO QAM 07/12/18 09/06/23 History glipizide 10 mg tablet 10 mg PO QAM 07/12/18 09/06/23 History insulin glargine 100 unit/mL (3 22 unit subcut HS 07/12/18 09/06/23 History mL) subcutaneous pen cholecalciferol (vitamin D3) 50 50 mcg PO DAILY 06/15/21 09/06/23 History mcg (2,000 unit) capsule (Vitamin D3) amlodipine 2.5 mg tablet 2.5 mg PO DAILY 08/27/23 09/06/23 History clonidine HCl 0.1 mg tablet 0.1 mg PO TID 08/27/23 09/06/23 History furosemide 20 mg tablet 20 mg PO QAM 08/27/23 09/06/23 History Past Med/Surg History Medical History (Updated 09/06/23 @ 08:17 by Ernestina Power MD) Pulmonary nodule GERD (gastroesophageal reflux disease) CKD (chronic kidney disease), stage III Dyslipidemia DM type 2 (diabetes mellitus, type 2) Rectal bleeding Hypertension Surgical History History of hysterectomy Hx laparoscopic cholecystectomy History of appendectomy History of bowel resection History of total left knee replacement Family History Other No significant family history Social History Smoking Status: Never smoker Second Hand Exposure: No; Do You Dip or Chew Tobacco: No; Hx Alcohol Use: No Hx Substance Use: No Preferred Language: Mongolian Communication Ability: Effective Information Technology Specialist Required: No Beliefs That Will Affect Care: None Current Living Situation: Spouse Feels Safe at Home: Yes Assistive Devices: Glasses and Walker Review of Systems Review of Systems: All systems reviewed & are unremarkable except as noted in HPI & below Physical Exam Physical Exam: General: Alert, oriented. No acute distress Skin: No noted rashes or bruises Psych: Appropriate mood and affect Neuro: No gross deficits HEENT: NC/AT Chest: Nontender to palpation. CV: RRR Resp: Breath sounds coarse bilaterally, no increased effort of breathing. Scattered wheezes Abdomen: Soft Extremities: edema in lower extremities bilaterally. Results & Data Results & Data Vital Signs (Past 12 Hours) Vital Signs Temp Pulse Resp BP Pulse Ox O2 Del Method O2 Flow Rate 09/06/23 05:00 76 20 163/61 H 94 Nasal Cannula 2 09/06/23 04:47 77 32 H 154/63 H 93 Nasal Cannula 2 09/06/23 04:00 79 27 H 94 Nasal Cannula 2 09/06/23 03:30 84 24 93 Nasal Cannula 2 09/06/23 03:28 82 09/06/23 03:26 87 19 95 Nasal Cannula 2 09/06/23 03:24 36.6 C 89 26 H 189/72 H 93 Nasal Cannula 2 09/06/23 03:24 Room Air 09/06/23 03:24 89 L Room Air, Nasal Cannula (3) Pneumonia Laterality: bilateral Lung location: lower lobe of lung Pneumonia type: due to unspecified organism Qualified Code(s): J18.9 - Pneumonia, unspecified organism
--- OUTSIDE RECORDS SUMMARY | 2023-09-06 06:23 | External Medical Summary | Summary of Care ---
Author Name Unknown Organization [facility] Address [address] [place] [address] Phone [phone] Care Team Providers Care Door Repairer Bus Name Role Phone Ernesto Alston DO Primary Care Provider [phone] Reason for Visit * Reason Onset Date Comments Emergency Department Follow-Up 08/30/2023 Encounter Details Date Type Department Care Team (Late st Contact Info) Description 08/30/2023 Telephone Family Practice [facility] [place] [address] [facility] [place] [address] [facility] [address] [facility] Department Follow-Up Allergies Active Allergy Reactions Criticality Noted Date Comments Diltiazem Hcl Other (Please comment) High 11/04/2017 Kidney problems Chlorthalidone 06/08/2001 interstitial nephritis Ibuprofen Low 09/04/2019 Other reaction(s): Unknown Atorvastatin Renal complications High 11/04/2017 Lisinopril Renal complications High 11/04/2017 Naproxen Low 09/04/2019 Other reaction(s): Unknown Nsaids 06/08/2001 intersitial nephritis Other reaction(s): INTERSITIAL NEPHRITIS PER [facility] Pneumococcal 13-Vilma Conj Vacc Other (Please comment) High 12/17/2014 Red, sore arm Ezetimibe Other (Please comment) High 11/04/2017 Kidney problems Simvastatin Renal complications High 11/04/2017 documented as of this encounter (statuses as of 08/31/2023) Medications Medication Sig Dispensed Refills Start Date End Date Status Acetaminophen 325 MG Oral Tablet Take by mouth. 1 - 2 pills as needed 0 Active Aspirin 81 MG Tablet Take 1 Tab by mouth daily. 30 Tab 11 07/16/2018 Active Vitamin D3 50 MCG (2000 UT) Oral Capsule Take 1 Capsule by mouth in the morning. 0 06/05/2020 Active Amoxicillin 500 MG Oral Capsule (Amoxil)Indications :Status post total left knee replacement TAKE 4 CAPSULES BY MOUTH ONCE 1 HOUR BEFORE DENTAL PROCEDURE. 4 Capsule 3 09/23/2021 Active Additional Information Patient not taking.Reported on 07/14/2023 Ketoconazole 2 % External Cream APPLY TOPICALLY TO AREA BELOW BREASTS 2 TIMES DAILY FOR 14 DAYS. 15 g 3 11/30/2021 Active Atenolol 50 MG Oral Tablet (Tenormin) TAKE TWO TABLETS BY MOUTH IN THE MORNING 180 Tablet 2 02/13/2023 02/13/2024 Active glipiZIDE 10 MG Oral Tablet (Glucotrol) TAKE ONE TABLET BY MOUTH TWICE A DAY 30 MINUTES BEFORE A MEAL 180 Tablet 1 02/07/2023 02/07/2024 Active Furosemide 20 MG Oral Tablet (Lasix) Take 1 Tablet by mouth in the morning. 30 Tablet 11 06/11/2023 Active cloNIDine HCl 0.1 MG Oral Tablet (Catapres)Indicatio ns:Benign hypertension with stage 3b chronic kidney disease (HCC) Take 1 Tablet by mouth in the morning and 1 Tablet at noon and 1 Tablet in the evening. 90 Tablet 3 07/14/2023 Active amLODIPine Besylate 2.5 MG Oral Tablet (Norvasc)Indication s:Benign hypertension with stage 3b chronic kidney disease (HCC) Take 1 Tablet by mouth in the morning. 90 Tablet 5 07/14/2023 Active Insulin Glargine Solostar 100 UNIT/ML Subcutaneous Solution Pen-injector (Lantus SoloStar)Indication s:Type 2 diabetes mellitus with stage 3 chronic kidney disease, with long-term current use of insulin, unspecified whether stage 3a or 3b CKD (HCC) INJECT 18 UNITS DAILY AT BEDTIME, INCREASE DIRECTED. 45 mL 2 08/01/2023 Active Unifine Pentips 29G X 12MM (needle (insulin))Indicatio ns:Type 2 diabetes mellitus with hemoglobin A1c goal of less than 7.0% (HCC) USE ONE EVERY DAY WITH INSULIN PEN 100 Each 2 08/05/2023 10/05/2024 Active OneTouch UltraSoft Lancets USE DIRECTED TO TEST BLOOD GLUCOSE 2-3 TIMES A DAY 300 Each 1 08/19/2023 08/17/2024 Active OneTouch Ultra In Vitro Strip (Glucose Blood)Indications:T ype 2 diabetes mellitus with hemoglobin A1c goal of less than 7.0% ([facility]) Use to test blood glucose 2 to 3 times daily; E11.9. 200 Strip 3 08/22/2023 Active documented as of this encounter (statuses as of 08/31/2023) Active Problems Problem Noted Date Diagnosed Date Gastroesophageal reflux disease without esophagi tis 12/15/2022 Atherosclerosis of coronary artery 05/13/2022 Carpal tunnel syndrome, bilateral 11/09/2021 Trigger middle finger of left hand 11/09/2021 Type 2 diabetes mellitus wit h stage 4 chronic kidney disease, with long-term current use of insulin 10/26/2021 Hypertensive kidney disease with chronic kidney disease stage IV 10/26/2021 Type 2 diabetes mellitus wit h stage 3b chronic kidney disease, with long-term current use of insulin 02/23/2021 Mesenteric artery stenosis 02/23/2021 Chronic kidney disease, stage 3b 02/16/2021 Overview: Per CKD protocol Benign hypertension with stage 3b chronic kidney disease 01/12/2021 Overview: Per CKD protocol Primary open-angle glaucoma, bilateral, moderate stage 08/18/2020 Type 2 diabetes mellitus wit 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 Statin intolerance 03/15/2007 Overview: Myalgias with Zocor and Lipitor documented as of this encounter (statuses as of 08/31/2023) Resolved Problems Problem Noted Date Diagnosed Date Resolved Date Type 2 diabetes mellitus wit h mild nonproliferative retinopathy of left eye without macular edema 09/16/2022 12/14/2022 Overview: B/L eye code already on problem list. Removing this Closed nondisplaced fracture of proximal phalanx of left little finger 01/05/2022 12/14/2022 Overview: No longer initial encounter/treatment. Last Xray performed February 2022 "Bones/joints: There is a comminuted but nondisplaced fracture of the proximal phalanx of the left 5th finger. Alignment not changed from previous.There is no bony callus formation. There is marked diffuse osteopenia. There are marked degenerative changes present. " Type 2 diabetes mellitus wit h stage 3b chronic kidney disease, with long-term current use of insulin 01/12/2021 05/11/2022 Overview: Per CKD protocol duplicate Nontoxic single thyroid nodule 01/09/2020 02/23/2021 Diabetic retinopathy of left eye 10/15/2019 10/15/2019 Mild nonproliferative diabet ic retinopathy of left eye without macular edema associated with type 2 diabetes mellitus 09/17/2019 05/11/2022 Overview: duplicate BRBPR (bright red blood per rectum) 07/30/2018 02/17/2020 Ischemic colitis 07/14/2018 07/14/2021 Type 2 diabetes mellitus wit h hemoglobin A1c goal of less than 8.0% 12/22/2017 12/14/2022 Overview: Duplicate diagnosis on problem list. Removing one. Disorder of adrenal gland 12/20/2017 Type 2 diabetes mellitus wit h stage 3 chronic kidney disease, with long-term current use of insulin 12/20/2017 01/14/2021 Overview: Per CKD protocol Benign hypertension with CKD (chronic kidney disease) stage III 12/20/2017 01/14/2021 Overview: Per CKD protocol LPRD (laryngopharyngeal reflux disease) 09/28/2017 02/17/2020 Kidney disease, chronic, sta ge III (GFR 30-59 ml/min) 06/11/2014 01/25/2018 CKD (chronic kidney disease), stage II 12/14/2012 12/04/2013 Type 2 diabetes mellitus wit h hemoglobin A1c goal of less than 7.0% 10/17/2012 12/22/2017 Overview: ICD-10 update of inactive term HTN, goal below 140/90 08/08/201212/14 PPD positive, treated 03/14/20122016 Overview: Recalls treated with unknown but paid for medication through a clinic in [place] Type 2 diabetes mellitus wit h hemoglobin A1c goal of 7.0%-8.0% 12/15/2011 10/17/2012 Overview: ICD-10 update of inactive term Type 2 diabetes mellitus wit h hemoglobin A1c goal of less than 7.0% 01/28/2011 12/15/2011 Overview: ICD-10 update of inactive term DM type 2 causing renal disease 11/05/2010 12/20/2017 Type 2 diabetes mellitus wit h hemoglobin A1c goal of 7.0%-8.0% 10/08/2010 01/28/2011 Overview: ICD-10 update of inactive term Kidney disease, chronic, sta ge III (GFR 30-59 ml/min) 03/25/2010 12/14/2012 Overview: Per CKD Protocol, #1 Benign neoplasm of colon 09/20/2006 Overview: 01/11/11: abnormal, diverticulitis, led to sigmoid resection and lysis of adhesions 09/20/06: adenomatous polyp--repeat 5 years ADVANCE DIRECTIVE INFORMATION 12/07/2005 10/08/2010 Overview: No, Advance Directive brochure given to patient at prior appointment. Lymphadenitis, unspecified, except mesenteric 06/01/20 04 02/17/2020 OBESITY, UNSPECIFIED 07/29/2002 008 GERD (gastroesophageal reflux disease) 03/20/2023 documented as of this encounter (statuses as of 08/31/2023) Immunizations Name Administration Dates Next Due COVID-19 mRNA, LNP-s, No Pre serve, 2-Dose Series (Quick Key) 05/01/2021,11/25/2020,11/04/2020 Pneumococcal Conjugate Vacc, 13 Valent (Prevnar) 12/11/2014 Season Influenza, Quad, PF, Adjuvanted, 65+ Yrs, IM (FLUAD) 06/22/2020 Seasonal Influenza Virus Vac cine, Unspecified Formulation 06/12/2019,07/03/2018,06/20/2017,2015,06/15/2015,06/11/2014,06/10/2013,0 05/23/2012,05/26/2011,07/06/2010, 009,07/03/2008,07/04/2007,07/19/2006,,07/22/2003,08/16/2000 Seasonal Influenza, PF, 6 M & above, IM , (FluLaval or Fluzone) 07/03/2018 Seasonal Influenza, Quadriva lent Hd (Fluzone Hd) 07/14/2023,05/13/2022,05/24/2021 Seasonal Influenza, Quadriva lent, No Preserve, IM 06/20/2016,06/15/2015 Seasonal Influenza, Split, I IV3, With Preserve, Inj 06/11/2014,06/10/2013,05/23/2012,2010,07/06/2010,07/28/2009,07/03/2008,1 ,07/19/2006 Seasonal Influenza, Trivalen t, Adjuvanted, 65+ yrs 06/12/2019 Seasonal Influenza, Trivalen t, High Dose, No Preserve, IM 06/20/2017 TD, Preservative Free 02/15/2010 TDAP (age 10 and older)(Boostrix) 03/31/2023, Varicella Zoster Vaccine (Adult) 10/12/2011 Zoster Vaccine Recombinant (Shingrix) 01/12/2021 ,08/18/2020 documented as of this encounter Social History Tobacco Use Types Packs/Day Years Used Date Smoking Tobacco: Never Smokeless Tobacco: Never Alcohol Use Standard Drinks/Week Comments No 0 (1 standard drink = 0.6 oz pur e alcohol) PHQ-2 Answer Date Recorded PHQ Adult Total Score 0 05/31/2022 Hunger Vital Sign Answer Date Recorded Within the past 12 months, y ou worried that your food would run out before you got the money to buy more. Never true 05/31/20 22 Within the past 12 months, t he food you bought just didn't last and you didn't have money to get more. Never true 05/31/2022 Sex and Gender Information Value Date Recorded Sex Assigned at Female 05/24/2021 9:20 AM EDT Gender Identity Female 05/24/2021 9:20 AM EDT Sexual Orientation Straight 05/24/2021 9: 20 AM EDT Job Start Date Occupation Industry Not on file Not on file Not on file documented as of this encounter Functional Status Functional Status Response Date of Assess ment Are you deaf or do you have serious difficulty hearing? Yes-TORRES MARTINEZ,does not have hearing aid 07/29/2018 Are you blind or do you have serious difficulty seeing, even when wearing glasses? No 07/29/2018 Do you have serious difficul ty walking or climbing stairs? (5 years old or older) No 07/29/2018 Do you have difficulty dress ing or bathing? (5 years old or older) No 07/14/2018 Because of a physical, menta l, or emotional condition, do you have difficulty doing errands alone such as visiting a doctor s office or shopping? (15 years old or older) Yes-pt does not drive 07/29/2018 Cognitive Status Response Date of Assessm ent Because of a physical, menta l, or emotional condition, do you have serious difficulty concentrating, remembering, or making decisions? (5 years old or older) No 07/29/2018 documented as of this encounter Miscellaneous Notes * Telephone Encounter - Renee Benson OSA - 08/31/2023 9:30 AM EST Lmom 08/31 * Telephone Encounter - Genna Liang OSA - 08/30/2023 3:15 PM EST Patient needs ED Follow-up. Did patient decline to see other providers in their home clinic? : NO If New Patient - Were surrounding clinics offered? N/A Please see call details. documented in this encounter Plan of Treatment Upcoming Encounters Date Type Department Care Team (Late st Contact Info) Description 09/05/2023 3:00 PM EST Office Visit [facility] [address] [facility] [place] [address] Kristina Garcia MD [address] [facility] [place] [address] 11/14/2023 9:20 AM EDT Office Visit [facility] [address] [facility] [place] [address] Ernesto Alston, DO [address] [facility] [place] [address] 05/07/2024 2:40 PM EDT Office Visit [facility] [address] [facility] [place] [facility] [place] [id number] Hernandez Hernandez MD [address] [facility] [place] [address] Health Maintenance Due Date Last Done Comments Hepatitis B (1 of 3 - Risk 3-dose series) 1994 COVID-19 Vaccine ( season) 2023 05/01/2021, 11/25/2020, 11/04/2020 Depression Screening 05/31/2023 05/31/2022 Diabetic Eye Exam 09/06/2023 09/06/2022, , 02/23/2021, Additional history exists HbA1c 10/05/2023 04/04/2023, 07/04/2023, 12/15/2022, Additional history exists Diabetic Foot Exam 03/31/2024 03/31/2023, 0 05/31/2022, 02/23/2021, Additional history exists Albumin/Creatinine Ratio 04/05/2024 023, 03/31/2023, 05/13/2022, Additional history exists DTaP,Tdap,and Td Vaccines (3 - Td or Tdap) 03/31/2033 03/31/2023, 10/17/2012, 02/15/2010, Additional history exists Pneumococcal Vaccine: 65+ Years Completed 12/11/2014, 02/10/2000 Zoster Vaccines Completed 01/12/2021, 08/04, 10/12/2011 Influenza Vaccine (FLU shot) Completed 06/2023, 05/13/2022, 05/24/2021, Additional history exists GARDASIL-HPV IMMUNIZATION SERIES Aged Out No longer eligible based on patient's age to complete this topic MENINGOCOCCAL (MENACTRA/MENVEO) Aged Out No longer eligible based on patient's age to complete this topic documented as of this encounter Medical Devices Not on filedocumented as of this encounter Advance Directives Documents on File Type Date Recorded Patient Scratcher Tender Expl anation Advance Directives and Livin g Will 01/24/2014 LIVING WILL Power of Computer Drafter 01/24/2014 POWER OF A TTORNEY Latest Code Status on File Code Status Date Activated Date Inactivated Comments Full Code 07/29/2018 11:39 AM 08/01/2018 7:20 PM Th is order reflects the patients wishes and were consensually agreed upon. Code Status History Code Status Date Activated Date Inactivated Comments Full Code 07/14/2018 2:44 AM 07/16/2018 7:49 PM Thi s order reflects the patients wishes and were consensually agreed upon. Full Code 11/04/2017 4:48 PM 11/05/2017 5:14 PM Question Answer Comments Discussion of Advance Directives occurred with: Not Discussed Care Teams Door Repairer Bus Relationship Specialty Start Date End Date Ernesto Alston DO [address] [place] [address] PCP - General Family Medicine 10/29/18 documented as of this encounter
[2023-09-06] MEDS ORDERED: SODIUM CHLORIDE 0.9% 1,000 ML IV SCH (07:30)
--- NOTE | 2023-09-06 07:38 | XRay Report ---
XR chest 1V portable HISTORY: 88 years-old Female Dyspnea acute shortness of breath COMPARISON: 08/27/2023 TECHNIQUE: AP view of the chest FINDINGS: Cardiac silhouette is enlarged. Unchanged hilar prominence with chronic interstitial coarsening. No p neumothorax, pleural effusion or airspace consolidation. The bones appear grossly intact. IMPRESSION: 1. Cardiomegaly without pulmonary edema. 2. Bilateral hilar prominence redemonstrated correlating with mild lymphadenopathy seen on the prior CTA of the chest. ACT 112: Negative or not required by law. The above report was generated using voice recognition software. It may contain grammatical, syntax o r spelling errors. Electronically signed by: Mir Landis M.D. 09/06/2023 7:37 AM
[2023-09-06] MEDS ORDERED: GLUCAGON FOR INJ 1 MG VIAL SQ PRN (07:43)
[2023-09-06] MEDS ORDERED: GLUCOSE 10 TAB/TUBE PO PRN (07:43)
[2023-09-06] MEDS ORDERED: PHARMACY GLYCEMIC MGMT CONSULT PRN (07:43)
[2023-09-06] MEDS ORDERED: DEXTROSE 50% 50 ML SYRINGE IV PRN (07:43)
[2023-09-06] MEDS ORDERED: GLUCOSE 40% GEL 15 GM TUBE PO PRN (07:43)
[2023-09-06] MEDS ORDERED: NovoLIN-N (NPH) PER UNIT CHARGE SQ STA (08:06)
[2023-09-06] MEDS ORDERED: ONDANSETRON INJ 2 MG/ML 2 ML VIAL IV PRN (08:11)
[2023-09-06] MEDS ORDERED: ACETAMINOPHEN 500 MG TAB PO PRN (08:11)
[2023-09-06] MEDS ORDERED: LANTUS PER UNIT CHARGE SQ SCH ×2 (09:00)
[2023-09-06] MEDS: INSULIN ASPART PER UNIT CHARGE SC SCH ×4 (09:37→21:57)
[2023-09-06] MEDS: CHOLECALCIFEROL 1,000 UNITS 25 MCG TAB PO SCH (09:48)
[2023-09-06] MEDS: cloNIDine HCL 0.1 MG TAB PO SCH ×3 (09:49→21:55)
[2023-09-06] MEDS: ATENOLOL 50 MG TABLET PO SCH (09:49)
[2023-09-06] MEDS: amLODIPine BESYLATE 5 MG TAB PO SCH (09:49)
[2023-09-06] MEDS: guaiFENesin 600 MG TABCR PO SCH ×2 (09:49→21:55)
--- NOTE | 2023-09-06 11:09 | Electrocardiogram Report ---
Test Reason : Blood Pressure : / mmHG Vent. Rate : 085 BPM Atrial Rate : 085 BPM P-R Int : 156 ms QRS Dur : 094 ms QT Int : 368 ms P-R-T Axes : 065 -22 045 degrees QTc Int : 437 ms Normal sinus rhythm Incomplete right bundle branch block Borderline ECG When compared with ECG of 27-AUG-2023 11:20, Criteria for Anterior infarct are no longer Present Criteria for Anterolateral infarct are no longer Present Confirmed by Mono Porter ([id number]) on 09/06/2023 11:09:13 AM Referred By: REFERRED SELF Confirmed By:Mono Porter
[2023-09-06] MEDS: ALBUT/IPRATROP 3MG/0.5MG NEB 3 ML VIAL NEB SCH ×4 (11:21→23:59)
--- NOTE | 2023-09-06 11:25 | Pharmacy Report ---
Pharmacy Glycemic Short Note 2 - Date of Service September 06, 2023 - Glycemic Short BSG Results (Last 24 hours): 09/06/23 09/06/23 03:20 09:04 Glucose 148 H POC Glucose 152 H OUTPATIENT ANTIDIABETIC REGIMEN: * glipizide 10mg QAM * Lantus 22 units QHS * HbA1c pending 09/07/22 ASSESSMENT: * Belem is an 88 YOF admitted with hypoxia post Covid-19 infection and a history of T2DM. Pharmacy has been consulted to assist with glycemic management. * Fasting BSG slightly above goal range. Will allow for a Lantus scale at bedtime up to about home dose based on bedtime BSGs * Dexamethasone 10mg IV given this AM, dexamethasone 6mg daily ordered. Will cover for steroid induced hyperglycemia with 0.3 units/kg insulin NPH given with dexamethasone. * Novolog initiated at a weight based stress of 3. PLAN FOR INPATIENT GLYCEMIC CONTROL: * Hold outpatient oral diabetes medications * Basal insulin * Lantus 0-20 units SQ HS * Bolus insulin * NovoLog per scale ACHS or Q6hrs while NPO * Goal Range: Low 110 mg/dL - High 140 mg/dL * Correction Factor: 20 mg/dL/unit * Nutritional / Prandial insulin per carb ratio of 1 unit per 6 grams CHO consumed
[2023-09-06] MEDS: HEPARIN SOD 5,000 UNIT/0.5 ML VIAL SQ SCH ×2 (15:32→22:12)
[2023-09-06] MEDS ORDERED: LANTUS PER UNIT CHARGE SC SCH ×2 (21:00)
[2023-09-07] MEDS: ALBUT/IPRATROP 3MG/0.5MG NEB 3 ML VIAL NEB SCH ×6 (03:58→22:23)
[2023-09-07 04:09] LABS: Hematocrit (blood only) 34.4 % (37.0-47.0); Hemoglobin 11.3 g/dl (12.0-16.0); Mean Corpuscular Hemoglobin 28.5 pg (25.0-34.0); Mean Corpuscular Hgb Conc 32.8 g/dL (32.0-36.0); Mean Corpuscular Volume 86.6 fL (80.0-100.0); Mean Platelet Volume 9.5 fL (9.4-12.4); Platelet Count 374 K/uL (130-400); RDW Coefficient of Variation 11.9 % (11.5-14.5); RDW Standard Deviation 38.1 fL (36.4-46.3); Red Blood Count 3.97 M/uL (4.20-5.40); White Blood Count 18.78 K/ul (4.8-10.8)
[2023-09-07 04:25] LABS: BUN Creatinine Ratio 27.3 (10-20); Creatinine Clr Calc Pharmacy 29.6 ml/min; Est GFR (African American) 42.9 ml/min; Phosphorus 4.7 mg/dl (2.5-4.9)
[2023-09-07] MEDS: dexAMETHasone 6 MG in SYRINGE 0 ML IV SCH (06:26)
[2023-09-07] MEDS: HEPARIN SOD 5,000 UNIT/0.5 ML VIAL SQ SCH ×3 (06:30→20:27)
[2023-09-07 07:54] LABS: Estimated Average Glucose 151 mg/dl; Hemoglobin A1C 6.9 % (4.5-5.6)
[2023-09-07] MEDS: amLODIPine BESYLATE 5 MG TAB PO SCH (08:55)
[2023-09-07] MEDS: CHOLECALCIFEROL 1,000 UNITS 25 MCG TAB PO SCH (08:56)
[2023-09-07] MEDS: ATENOLOL 50 MG TABLET PO SCH (08:56)
[2023-09-07] MEDS: cloNIDine HCL 0.1 MG TAB PO SCH ×3 (08:57→20:27)
[2023-09-07] MEDS: guaiFENesin 600 MG TABCR PO SCH ×2 (08:57→20:27)
[2023-09-07] MEDS: HYDROcodone/HOMATROPINE SYRUP 5MG/1.5MG 5ML UDP PO PRN (09:13)
[2023-09-07] MEDS ORDERED: NovoLIN-N (NPH) PER UNIT CHARGE SQ STA (09:14)
--- NOTE | 2023-09-07 09:27 | Hospitalist Progress Note ---
Date of Service September 07, 2023 Assessment & Plan (1) COVID: (2) Acute hypoxic respiratory failure: (3) Pneumonia: (4) DM type 2 (diabetes mellitus, type 2): Plan Pt is an 88yoF with PMhx significant for HTN, CKD, and DM II admitted with acute hypoxic respiratory failure in the setting of a prior covid infection. Acute hypoxic respiratory failure COVID infection Pneumonia Pt hypoxic to 87%, WBC elevated, tachypneic Chest xray in ER w/o pna Sputum Cx ordered by ED - pending COVID positive of 08/27 lactate normal Procal negat., Decadron 10mg IV given in the ED, cont. decadron Duonebs and mucinex scheduled Supportive care Supplemental oxygen as needed, currently on 2-3L of suppl. O2 Given oxygen requirement and recent dg. of covid infection, elderly age/immunocom. - will start empiric abx CKD Cr of 1.2 Appears to be at baseline upon further review of chart Received IV fluids in the ED Will hold off on further IV hydration at this time Push PO intake Hold nephrotoxic meds DMII Basal/bolus per protocol in setting of decadron/steroid use Pharmacy glycemic consult Hold home glipizide and insulin Continue other home meds as ordered CODE STATUS: Full code DVT prophy: Heparin SQ Diet: DMII Dispo: Med/surg tele Admission and Anticipated Discharge Date Admission Date: September 06, 2023 Subjective Pt seen in follow up of hypoxia, + covid Sitting up in bed in NAD, on suppl. O2, mildly tachypneic She says she feels better, coughing less and less sputum production, however she is on oxygen and is mildly tachypneic when talking to me, she is also wheezing on phys. exam Review of Systems Review of Systems: All systems reviewed & are unremarkable except as noted in Subjective Physical Exam Physical Exam: General: WD/WN elderly F in NAD, on suppl. O2 HEENT: NC/AT Chest: Nontender to palpation. CV: RRR Resp: mildly tachypneic, + Scattered wheezes, on suppl. O2 Abdomen: Soft, nontender, + bowel sounds Extremities: trace edema in lower extremities bilaterally. Skin: No noted rashes or bruises Psych: Appropriate mood and affect Neuro: awake, alert, oriented, answers appropriately, speech fluent, moves extremities Results & Data Results & Data Vital Signs (Past 12 Hours) Vital Signs Pulse Pulse Resp BP BP Pulse Ox O2 Del Method 09/07/23 08:59 97 H 21 157/62 H 95 Nasal Cannula 09/07/23 08:01 92 H 09/07/23 06:54 89 16 93 Nasal Cannula 09/07/23 06:00 84 20 149/63 H 96 Nasal Cannula 09/07/23 05:30 81 19 92 09/07/23 05:00 148/64 H 09/07/23 05:00 148/64 H 09/07/23 05:00 84 19 91 09/07/23 04:30 87 14 90 09/07/23 04:00 82 17 97 09/07/23 04:00 177/71 H 09/07/23 03:59 82 22 94 Nasal Cannula 09/07/23 03:37 89 19 93 09/07/23 03:00 72 19 94 09/07/23 03:00 132/55 L 09/07/23 02:30 73 20 94 09/07/23 02:00 85 22 94 09/07/23 02:00 153/67 H 09/07/23 01:30 81 19 93 09/07/23 01:27 76 09/07/23 01:00 77 19 94 09/07/23 01:00 128/62 09/07/23 00:30 82 21 97 09/07/23 00:00 68 19 97 09/07/23 00:00 153/64 H 09/06/23 23:30 154/62 H 09/06/23 23:30 73 21 95 09/06/23 23:00 151/65 H 09/06/23 23:00 75 22 94 09/06/23 22:30 157/65 H 09/06/23 22:30 77 18 93 09/06/23 22:15 76 21 139/62 95 Nasal Cannula 09/06/23 22:15 Nasal Cannula 09/06/23 22:00 72 21 93 09/06/23 22:00 139/62 09/06/23 21:30 77 21 93 09/06/23 21:30 148/56 H O2 Flow Rate 09/07/23 08:59 2 09/07/23 08:01 09/07/23 06:54 2 09/07/23 06:00 2 09/07/23 05:30 09/07/23 05:00 09/07/23 05:00 09/07/23 05:00 09/07/23 04:30 09/07/23 04:00 09/07/23 04:00 09/07/23 03:59 2 09/07/23 03:37 09/07/23 03:00 09/07/23 03:00 09/07/23 02:30 09/07/23 02:00 09/07/23 02:00 09/07/23 01:30 09/07/23 01:27 09/07/23 01:00 09/07/23 01:00 09/07/23 00:30 09/07/23 00:00 09/07/23 00:00 09/06/23 23:30 09/06/23 23:30 09/06/23 23:00 09/06/23 23:00 09/06/23 22:30 09/06/23 22:30 09/06/23 22:15 3 09/06/23 22:15 3 09/06/23 22:00 09/06/23 22:00 09/06/23 21:30 09/06/23 21:30 Laboratory Results 09/07/23 09/07/23 09/07/23 Range/Units 09:16 07:36 03:53 WBC 18.78 H (4.8-10.8) K/ul RBC 3.97 L (4.20-5.40) M/uL Hgb 11.3 L (12.0-16.0) g/dl Hct 34.4 L (37.0-47.0) % MCV 86.6 (80.0-100.0) fL MCH 28.5 (25.0-34.0) pg MCHC 32.8 (32.0-36.0) g/dL RDW Std Deviation 38.1 (36.4-46.3) fL RDW Coeff of Ilda 11.9 (11.5-14.5) % Plt Count 374 (130-400) K/uL MPV 9.5 (9.4-12.4) fL Sodium 134 L (136-145) mmol/L Potassium 4.0 (3.5-5.1) mmol/L Chloride 104 (98-107) mmol/L Carbon Dioxide 19 L (21-32) mmol/L Anion Gap 11 (3-11) BUN 35 H (6-23) mg/dl Creatinine 1.28 H (0.6-1.2) mg/dl Est Cr Clr Drug Dosing 29.6 ml/min Est GFR ( Amer) 42.9 ml/min Est GFR (Non-Af Amer) 37.0 ml/min BUN/Creatinine Ratio 27.3 H (10-20) Glucose 102 H (70-99(Fasting)) mg/dl POC Glucose 122 H (70-99) mg/dl Estimat Average Glucose 151 mg/dl Hemoglobin A1c 6.9 H (4.5-5.6) % Calcium 9.0 (8.6-10.3) mg/dl Phosphorus 4.7 (2.5-4.9) mg/dl Magnesium 2.0 (1.7-2.4) mg/dl Urine Color Pending Urine Appearance Pending Urine pH Pending Ur Specific [place] Pending Urine Protein Pending Urine Glucose (UA) Pending Urine Ketones Pending Urine Blood Pending Urine Nitrite Pending Urine Bilirubin Pending Urine Urobilinogen Pending Ur Leukocyte Esterase Pending 09/06/23 09/06/23 09/06/23 Range/Units 21:53 17:53 13:01 WBC (4.8-10.8) K/ul RBC (4.20-5.40) M/uL Hgb (12.0-16.0) g/dl Hct (37.0-47.0) % MCV (80.0-100.0) fL MCH (25.0-34.0) pg MCHC (32.0-36.0) g/dL RDW Std Deviation (36.4-46.3) fL RDW Coeff of Ilda (11.5-14.5) % Plt Count (130-400) K/uL MPV (9.4-12.4) fL Sodium (136-145) mmol/L Potassium (3.5-5.1) mmol/L Chloride (98-107) mmol/L Carbon Dioxide (21-32) mmol/L Anion Gap (3-11) BUN (6-23) mg/dl Creatinine (0.6-1.2) mg/dl Est Cr Clr Drug Dosing ml/min Est GFR ( Amer) ml/min Est GFR (Non-Af Amer) ml/min BUN/Creatinine Ratio (10-20) Glucose (70-99(Fasting)) mg/dl POC Glucose 92 84 217 H (70-99) mg/dl Estimat Average Glucose mg/dl Hemoglobin A1c (4.5-5.6) % Calcium (8.6-10.3) mg/dl Phosphorus (2.5-4.9) mg/dl Magnesium (1.7-2.4) mg/dl Urine Color Urine Appearance Urine pH Ur Specific [place] Urine Protein Urine Glucose (UA) Urine Ketones Urine Blood Urine Nitrite Urine Bilirubin Urine Urobilinogen Ur Leukocyte Esterase Medications Administered Current Inpatient Medications Acetaminophen (Acetaminophen 500 Mg Tab) 1,000 mg PO Q8H PRN PRN Reason: Pain or Fever Stop: 10/06/23 08:10 Albuterol (Albut/Ipratrop 3mg/0.5mg Neb 3 Ml Vial) 3 ml NEB Q4R [facility]; Protocol Stop: 10/06/23 10:59 Last Admin: 09/07/23 06:54 Dose: 3 ml Amlodipine Besylate (Amlodipine Besylate 5 Mg Tab) 2.5 mg PO DAILY [facility] Stop: 10/06/23 08:59 Last Admin: 09/07/23 08:55 Dose: 2.5 mg Atenolol (Atenolol 50 Mg Tablet) 50 mg PO QAM [facility] Stop: 10/06/23 08:59 Last Admin: 09/07/23 08:56 Dose: 50 mg Clonidine HCl (Clonidine Hcl 0.1 Mg Tab) 0.1 mg PO TID [facility] Stop: 10/06/23 08:59 Last Admin: 09/07/23 08:57 Dose: 0.1 mg Dextrose (Dextrose 50% 50 Ml Syringe) 25 - 50 ml IV UD PRN; Protocol PRN Reason: Hypoglycemia Protocol Stop: 10/06/23 07:42 Glucagon (Glucagon For Inj 1 Mg Vial) 1 mg SQ UD PRN; Protocol PRN Reason: Hypoglycemia Protocol Stop: 10/06/23 07:42 Glucose (Glucose 10 Tab/Tube) 4 - 8 tab PO UD PRN; Protocol PRN Reason: Hypoglycemia Treatment Stop: 10/06/23 07:42 Glucose (Glucose 40% Gel 15 Gm Tube) 15 - 30 gm PO UD PRN; Protocol PRN Reason: Hypoglycemia Protocol Stop: 10/06/23 07:42 Guaifenesin (Guaifenesin 600 Mg Tabcr) 1,200 mg PO Q12 [facility] Stop: 10/06/23 08:59 Last Admin: 09/07/23 08:57 Dose: 1,200 mg Heparin Sodium (Porcine) (Heparin Sod 5,000 Unit/0.5 Ml Vial) 5,000 units SQ Q8 [facility] Stop: 10/06/23 13:59 Last Admin: 09/07/23 06:30 Dose: 5,000 units Hydrocodone Bit/Homatropine Methylb (Hydrocodone/Homatropine Syrup 5mg/1.5mg 5ml Udp) 5 ml PO Q6H PRN PRN Reason: Cough Stop: 09/20/23 08:09 Last Admin: 09/07/23 09:13 Dose: 5 ml Dexamethasone 6 mg/ Syringe 1.5 mls @ 1 mls/min IV Q24H [facility] Stop: 10/07/23 05:59 Last Admin: 09/07/23 06:26 Dose: 1 mls/min Insulin Aspart (Insulin Aspart Per Unit Charge) 0 units SC ACHS [facility] Stop: 10/06/23 07:59 Last Admin: 09/06/23 21:57 Dose: Not Given Insulin Glargine (Lantus Per Unit Charge) 0 units SC HS [facility]; Protocol Stop: 10/06/23 20:59 Last Admin: 09/06/23 21:57 Dose: Not Given Miscellaneous (Carbohydrates For Hypoglycemia ) 15 - 30 gm PO UD PRN PRN Reason: Hypoglycemia Protocol Stop: 10/06/23 07:42 Miscellaneous Information (Pharmacy Glycemic Mgmt Consult) 1 each N/A UD PRN PRN Reason: Consult Stop: 10/06/23 07:42 Ondansetron HCl (Ondansetron Inj 2 Mg/Ml 2 Ml Vial) 4 mg IV Q6H PRN PRN Reason: Nausea And Vomiting Stop: 10/06/23 08:10 Vitamin D (Cholecalciferol 1,000 Units 25 Mcg Tab) 2,000 units PO DAILY [facility] Stop: 10/06/23 08:59 Last Admin: 09/07/23 08:56 Dose: 2,000 units (3) Pneumonia Laterality: bilateral Lung location: lower lobe of lung Pneumonia type: due to unspecified organism Qualified Code(s): J18.9 - Pneumonia, unspecified organism
[2023-09-07 09:30] LABS: Appearance Urine Clear (Clear); Bacteria Urine Automated Negative (Negative); Bilirubin Urine Negative (Negative); Blood Urine Trace (Negative); Color Urine Yellow; Epithelial Cell Urine Auto 20-30 /lpf (0-5); Glucose Urine UA Negative (Negative); Ketones Urine Negative (Negative); Leukocyte Esterase Urine Negative (Negative); Nitrite Urine Negative (Negative); Protein Urine 2+ (Negative); RBC Urine Automated 0-4 /hpf (0-4); Specific Gravity Urine 1.013 (1.000-1.030); Urobilinogen Urine Negative (Negative)
[2023-09-07] MEDS: INSULIN ASPART PER UNIT CHARGE SC SCH ×4 (09:50→20:26)
[2023-09-07] MEDS: DOXYCYCLINE HYCLATE 100 MG CAP PO SCH ×2 (10:47→20:27)
[2023-09-07] MEDS: cefUROXime axetil 250 MG TABLET PO SCH ×2 (10:48→20:27)
[2023-09-07] MEDS ORDERED: ALBUT/IPRATROP 3MG/0.5MG NEB 3 ML VIAL NEB PRN (16:52)
[2023-09-07] MEDS: ADVANCED PROBIOTIC 1250 MG CAPSULE PO SCH (17:37)
[2023-09-07] MEDS: CARBOHYDRATES FOR HYPOGLYCEMIA PO PRN (17:38)
[2023-09-08] MEDS: ALBUT/IPRATROP 3MG/0.5MG NEB 3 ML VIAL NEB SCH ×5 (02:24→19:48)
[2023-09-08] MEDS: HYDROcodone/HOMATROPINE SYRUP 5MG/1.5MG 5ML UDP PO PRN ×3 (04:33→21:13)
[2023-09-08] MEDS: HEPARIN SOD 5,000 UNIT/0.5 ML VIAL SQ SCH ×3 (04:33→21:06)
[2023-09-08 07:27] LABS: Hemoglobin 10.9 g/dl (12.0-16.0); Mean Corpuscular Hemoglobin 28.6 pg (25.0-34.0); Mean Corpuscular Volume 86.6 fL (80.0-100.0); Mean Platelet Volume 9.6 fL (9.4-12.4); Platelet Count 418 K/uL (130-400); RDW Standard Deviation 38.6 fL (36.4-46.3); Red Blood Count 3.81 M/uL (4.20-5.40); White Blood Count 24.55 K/ul (4.8-10.8)
[2023-09-08 07:43] LABS: BUN Creatinine Ratio 33.1 (10-20); Calcium 8.5 mg/dl (8.6-10.3); Creatinine Clr Calc Pharmacy 30.8 ml/min; Est GFR (African American) 44.6 ml/min; Est GFR (Non-African American) 38.5 ml/min; Magnesium 1.9 mg/dl (1.7-2.4); Potassium 4.5 mmol/L (3.5-5.1)
--- NOTE | 2023-09-08 07:55 | Hospitalist Progress Note ---
Date of Service September 08, 2023 Assessment & Plan (1) COVID: (2) Acute hypoxic respiratory failure: (3) Pneumonia: (4) DM type 2 (diabetes mellitus, type 2): Plan Pt is an 88yoF with PMhx significant for HTN, CKD, and DM II admitted with acute hypoxic respiratory failure in the setting of a prior covid infection. Acute hypoxic respiratory failure COVID infection Pneumonia Pt hypoxic to 87%, WBC elevated, tachypneic Chest xray in ER w/o pna Sputum Cx - pending COVID positive of 08/27 lactate normal Procal negat., Decadron 10mg IV given in the ED, cont. decadron Duonebs and mucinex scheduled Supportive care Supplemental oxygen as needed, currently on 2-3L of suppl. O2 Given oxygen requirement and recent dg. of covid infection, elderly age/immunocom. , concern for developing superimposed bact. pna- cont. empiric abx CKD Cr of 1.2 Appears to be at baseline upon further review of chart Received IV fluids in the ED Will hold off on further IV hydration at this time Push PO intake Hold nephrotoxic meds DMII Basal/bolus per protocol in setting of decadron/steroid use Pharmacy glycemic consult Hold home glipizide and insulin Continue other home meds as ordered CODE STATUS: Full code DVT prophy: Heparin SQ Diet: DMII Dispo: Med/surg tele Admission and Anticipated Discharge Date Admission Date: September 06, 2023 Subjective Pt seen in follow up of hypoxia, + covid Sitting up in bed in NAD, on suppl. O2, mildly tachypneic She says she feels better, coughing less and less sputum production, however she is on oxygen and is mildly tachypneic when talking to me, she is also wheezing on phys. exam Currently on 2L of suppl. O2 Review of Systems Review of Systems: All systems reviewed & are unremarkable except as noted in Subjective Physical Exam Physical Exam: General: WD/WN elderly F in NAD, on suppl. O2 HEENT: NC/AT Chest: Nontender to palpation. CV: RRR Resp: mildly tachypneic, + mild scattered wheezes, on suppl. O2 Abdomen: Soft, nontender, + bowel sounds Extremities: trace edema in lower extremities bilaterally. Skin: No noted rashes or bruises Psych: Appropriate mood and affect Neuro: awake, alert, oriented, answers appropriately, speech fluent, moves extremities Results & Data Results & Data Vital Signs (Past 12 Hours) Vital Signs Temp Pulse Pulse Pulse Resp BP Pulse Ox 09/08/23 07:50 71 18 97 09/08/23 07:20 36.6 C 67 20 147/64 H 97 09/08/23 05:57 74 09/08/23 04:37 36.4 C L 72 18 187/68 H 97 09/08/23 02:24 74 21 09/08/23 00:23 78 09/07/23 23:34 36.7 C 82 20 126/68 95 09/07/23 22:49 09/07/23 20:52 79 24 94 O2 Del Method O2 Flow Rate 09/08/23 07:50 Nasal Cannula 3 09/08/23 07:20 Nasal Cannula 3 09/08/23 05:57 09/08/23 04:37 Nasal Cannula 3 09/08/23 02:24 Nasal Cannula 3 09/08/23 00:23 09/07/23 23:34 Nasal Cannula 3 09/07/23 22:49 Nasal Cannula 3 09/07/23 20:52 Nasal Cannula 3 Laboratory Results 09/08/23 09/07/23 09/07/23 Range/Units 06:48 20:22 18:11 WBC 24.55 H (4.8-10.8) K/ul RBC 3.81 L (4.20-5.40) M/uL Hgb 10.9 L (12.0-16.0) g/dl Hct 33.0 L (37.0-47.0) % MCV 86.6 (80.0-100.0) fL MCH 28.6 (25.0-34.0) pg MCHC 33.0 (32.0-36.0) g/dL RDW Std Deviation 38.6 (36.4-46.3) fL RDW Coeff of Ilda 12.0 (11.5-14.5) % Plt Count 418 H (130-400) K/uL MPV 9.6 (9.4-12.4) fL Sodium 137 (136-145) mmol/L Potassium 4.5 (3.5-5.1) mmol/L Chloride 108 H (98-107) mmol/L Carbon Dioxide 21 (21-32) mmol/L Anion Gap 8 (3-11) BUN 41 H (6-23) mg/dl Creatinine 1.24 H (0.6-1.2) mg/dl Est Cr Clr Drug Dosing 30.8 ml/min Est GFR ( Amer) 44.6 ml/min Est GFR (Non-Af Amer) 38.5 ml/min BUN/Creatinine Ratio 33.1 H (10-20) Glucose 61 L (70-99(Fasting)) mg/dl POC Glucose 137 H 97 (70-99) mg/dl Calcium 8.5 L (8.6-10.3) mg/dl Phosphorus 4.0 (2.5-4.9) mg/dl Magnesium 1.9 (1.7-2.4) mg/dl Urine Color Urine Appearance (Clear) Urine pH (4.5-7.5) Ur Specific [place] (1.000-1.030) Urine Protein (Negative) Urine Glucose (UA) (Negative) Urine Ketones (Negative) Urine Blood (Negative) Urine Nitrite (Negative) Urine Bilirubin (Negative) Urine Urobilinogen (Negative) Ur Leukocyte Esterase (Negative) Urine WBC (Auto) (0-5) /hpf Urine RBC (Auto) (0-4) /hpf U Hyaline Cast (Auto) (0-5) /lpf U Epithel Cells (Auto) (0-5) /lpf Urine Bacteria (Auto) (Negative) 09/07/23 09/07/23 09/07/23 Range/Units 17:34 12:21 09:16 WBC (4.8-10.8) K/ul RBC (4.20-5.40) M/uL Hgb (12.0-16.0) g/dl Hct (37.0-47.0) % MCV (80.0-100.0) fL MCH (25.0-34.0) pg MCHC (32.0-36.0) g/dL RDW Std Deviation (36.4-46.3) fL RDW Coeff of Ilda (11.5-14.5) % Plt Count (130-400) K/uL MPV (9.4-12.4) fL Sodium (136-145) mmol/L Potassium (3.5-5.1) mmol/L Chloride (98-107) mmol/L Carbon Dioxide (21-32) mmol/L Anion Gap (3-11) BUN (6-23) mg/dl Creatinine (0.6-1.2) mg/dl Est Cr Clr Drug Dosing ml/min Est GFR ( Amer) ml/min Est GFR (Non-Af Amer) ml/min BUN/Creatinine Ratio (10-20) Glucose (70-99(Fasting)) mg/dl POC Glucose 62 L* 176 H (70-99) mg/dl Calcium (8.6-10.3) mg/dl Phosphorus (2.5-4.9) mg/dl Magnesium (1.7-2.4) mg/dl Urine Color Yellow Urine Appearance Clear (Clear) Urine pH 5.0 (4.5-7.5) Ur Specific [place] 1.013 (1.000-1.030) Urine Protein 2+ H (Negative) Urine Glucose (UA) Negative (Negative) Urine Ketones Negative (Negative) Urine Blood Trace H (Negative) Urine Nitrite Negative (Negative) Urine Bilirubin Negative (Negative) Urine Urobilinogen Negative (Negative) Ur Leukocyte Esterase Negative (Negative) Urine WBC (Auto) 1-5 (0-5) /hpf Urine RBC (Auto) 0-4 (0-4) /hpf U Hyaline Cast (Auto) 1-5 (0-5) /lpf U Epithel Cells (Auto) 20-30 H (0-5) /lpf Urine Bacteria (Auto) Negative (Negative) Medications Administered Current Inpatient Medications Acetaminophen (Acetaminophen 500 Mg Tab) 1,000 mg PO Q8H PRN PRN Reason: Pain or Fever Stop: 10/06/23 08:10 Albuterol (Albut/Ipratrop 3mg/0.5mg Neb 3 Ml Vial) 3 ml NEB Q4R [facility]; Protocol Stop: 10/06/23 10:59 Last Admin: 09/08/23 07:50 Dose: 3 ml Albuterol (Albut/Ipratrop 3mg/0.5mg Neb 3 Ml Vial) 3 ml NEB Q2H PRN; Protocol PRN Reason: wheezing Stop: 10/07/23 16:59 Last Admin: 09/07/23 20:52 Dose: 3 ml Amlodipine Besylate (Amlodipine Besylate 5 Mg Tab) 2.5 mg PO DAILY [facility] Stop: 10/06/23 08:59 Last Admin: 09/07/23 08:55 Dose: 2.5 mg Atenolol (Atenolol 50 Mg Tablet) 50 mg PO QAM [facility] Stop: 10/06/23 08:59 Last Admin: 09/07/23 08:56 Dose: 50 mg Cefuroxime Axetil (Cefuroxime Axetil 250 Mg Tablet) 250 mg PO BID [facility] Stop: 09/14/23 09:59 Last Admin: 09/07/23 20:27 Dose: 250 mg Clonidine HCl (Clonidine Hcl 0.1 Mg Tab) 0.1 mg PO TID [facility] Stop: 10/06/23 08:59 Last Admin: 09/07/23 20:27 Dose: 0.1 mg Dextrose (Dextrose 50% 50 Ml Syringe) 25 - 50 ml IV UD PRN; Protocol PRN Reason: Hypoglycemia Protocol Stop: 10/06/23 07:42 Doxycycline Hyclate (Doxycycline Hyclate 100 Mg Cap) 100 mg PO BID [facility] Stop: 09/14/23 09:29 Last Admin: 09/07/23 20:27 Dose: 100 mg Glucagon (Glucagon For Inj 1 Mg Vial) 1 mg SQ UD PRN; Protocol PRN Reason: Hypoglycemia Protocol Stop: 10/06/23 07:42 Glucose (Glucose 10 Tab/Tube) 4 - 8 tab PO UD PRN; Protocol PRN Reason: Hypoglycemia Treatment Stop: 10/06/23 07:42 Glucose (Glucose 40% Gel 15 Gm Tube) 15 - 30 gm PO UD PRN; Protocol PRN Reason: Hypoglycemia Protocol Stop: 10/06/23 07:42 Guaifenesin (Guaifenesin 600 Mg Tabcr) 1,200 mg PO Q12 [facility] Stop: 10/06/23 08:59 Last Admin: 09/07/23 20:27 Dose: 1,200 mg Heparin Sodium (Porcine) (Heparin Sod 5,000 Unit/0.5 Ml Vial) 5,000 units SQ Q8 [facility] Stop: 10/06/23 13:59 Last Admin: 09/08/23 04:33 Dose: 5,000 units Hydrocodone Bit/Homatropine Methylb (Hydrocodone/Homatropine Syrup 5mg/1.5mg 5ml Udp) 5 ml PO Q6H PRN PRN Reason: Cough Stop: 09/20/23 08:09 Last Admin: 09/08/23 04:33 Dose: 5 ml Dexamethasone 6 mg/ Syringe 1.5 mls @ 1 mls/min IV Q24H [facility] Stop: 10/07/23 05:59 Last Admin: 09/07/23 06:26 Dose: 1 mls/min Insulin Aspart (Insulin Aspart Per Unit Charge) 0 units SC ACHS [facility] Stop: 10/06/23 07:59 Last Admin: 09/07/23 20:26 Dose: Not Given Insulin Glargine (Lantus Per Unit Charge) 0 units SC HS [facility]; Protocol Stop: 10/06/23 20:59 Last Admin: 09/06/23 21:57 Dose: Not Given Lactobacillus Acidophilus (Advanced Probiotic 1250 Mg Capsule) 2 cap PO DAILY [facility] Stop: 10/07/23 16:59 Last Admin: 09/07/23 17:37 Dose: 2 cap Miscellaneous (Carbohydrates For Hypoglycemia ) 15 - 30 gm PO UD PRN PRN Reason: Hypoglycemia Protocol Stop: 10/06/23 07:42 Last Admin: 09/07/23 17:38 Dose: 15 gm Miscellaneous Information (Pharmacy Glycemic Mgmt Consult) 1 each N/A UD PRN PRN Reason: Consult Stop: 10/06/23 07:42 Ondansetron HCl (Ondansetron Inj 2 Mg/Ml 2 Ml Vial) 4 mg IV Q6H PRN PRN Reason: Nausea And Vomiting Stop: 10/06/23 08:10 Vitamin D (Cholecalciferol 1,000 Units 25 Mcg Tab) 2,000 units PO DAILY [facility] Stop: 10/06/23 08:59 Last Admin: 09/07/23 08:56 Dose: 2,000 units (3) Pneumonia Laterality: bilateral Lung location: lower lobe of lung Pneumonia type: due to unspecified organism Qualified Code(s): J18.9 - Pneumonia, unspecified organism
[2023-09-08] MEDS: CARBOHYDRATES FOR HYPOGLYCEMIA PO PRN (08:03)
[2023-09-08] MEDS: ADVANCED PROBIOTIC 1250 MG CAPSULE PO SCH (08:48)
[2023-09-08] MEDS: ATENOLOL 50 MG TABLET PO SCH (08:48)
[2023-09-08] MEDS: dexAMETHasone 6 MG in SYRINGE 0 ML IV SCH (08:48)
[2023-09-08] MEDS: DOXYCYCLINE HYCLATE 100 MG CAP PO SCH ×2 (08:49→20:57)
[2023-09-08] MEDS: guaiFENesin 600 MG TABCR PO SCH ×2 (08:49→20:57)
[2023-09-08] MEDS: cefUROXime axetil 250 MG TABLET PO SCH ×2 (08:49→20:56)
[2023-09-08] MEDS: CHOLECALCIFEROL 1,000 UNITS 25 MCG TAB PO SCH (08:50)
[2023-09-08] MEDS: amLODIPine BESYLATE 5 MG TAB PO SCH (08:50)
[2023-09-08] MEDS: cloNIDine HCL 0.1 MG TAB PO SCH ×3 (08:50→21:13)
[2023-09-08] MEDS: INSULIN ASPART PER UNIT CHARGE SC SCH ×4 (09:14→20:44)
[2023-09-08] MEDS: LANTUS PER UNIT CHARGE SC SCH (12:49)
--- NOTE | 2023-09-08 14:14 | Pharmacy Report ---
Pharmacy Glycemic Short Note 2 - Date of Service September 08, 2023 - Glycemic Short BSG Results (Last 24 hours): 09/07/23 09/07/23 09/07/23 17:34 18:11 20:22 Glucose POC Glucose 62 L* 97 137 H 09/08/23 09/08/23 09/08/23 06:48 08:02 08:02 Glucose 61 L POC Glucose 67 L* 68 L* 09/08/23 09/08/23 08:43 12:09 Glucose POC Glucose 109 H 171 H OUTPATIENT ANTIDIABETIC REGIMEN: * glipizide 10mg QAM * Lantus 22 units QHS * HbA1c pending 09/07/22 ASSESSMENT: 09/07 * Belem received 28 units of insulin yesterday (20 were basal) * Slightly hypoglycemic this AM, patient reports to RN that she is sometimes low in the morning. Also slightly hypoglycemic yesterday at dinner. Insulin held with dinner and at bedtime. Reduced basal insulin by 25% in light of AM hypoglycemia and switched from NPH to Lantus due to dinner hypoglycemia (NPH has more prandial coverage) * Novolog carb ratio loosened at dinner with hypoglycemia. Will loosen correction factor and slightly tighten carb ratio with discontinuation of NPH. 09/06: * Belem is an 88 YOF admitted with hypoxia post Covid-19 infection and a history of T2DM. Pharmacy has been consulted to assist with glycemic management. * Fasting BSG slightly above goal range. Will allow for a Lantus scale at bedtime up to about home dose based on bedtime BSGs * Dexamethasone 10mg IV given this AM, dexamethasone 6mg daily ordered. Will cover for steroid induced hyperglycemia with 0.3 units/kg insulin NPH given with dexamethasone. * Novolog initiated at a weight based stress of 3. PLAN FOR INPATIENT GLYCEMIC CONTROL: * Hold outpatient oral diabetes medications * Basal insulin * Lantus 15 units daily * Bolus insulin * NovoLog per scale ACHS or Q6hrs while NPO * Goal Range: Low 110 mg/dL - High 140 mg/dL * Correction Factor: 30 mg/dL/unit * Nutritional / Prandial insulin per carb ratio of 1 unit per 6 grams CHO consumed
[2023-09-09] MEDS: ALBUT/IPRATROP 3MG/0.5MG NEB 3 ML VIAL NEB SCH ×7 (00:26→22:30)
[2023-09-09] MEDS: HEPARIN SOD 5,000 UNIT/0.5 ML VIAL SQ SCH ×3 (05:33→21:41)
[2023-09-09 07:22] LABS: BUN Creatinine Ratio 33.1 (10-20); Calcium 8.6 mg/dl (8.6-10.3); Creatinine Clr Calc Pharmacy 29.4 ml/min; Est GFR (African American) 44.6 ml/min; Est GFR (Non-African American) 38.5 ml/min; Magnesium 1.9 mg/dl (1.7-2.4); Phosphorus 3.9 mg/dl (2.5-4.9); Potassium 4.5 mmol/L (3.5-5.1)
--- NOTE | 2023-09-09 08:47 | Hospitalist Progress Note ---
Date of Service September 09, 2023 Assessment & Plan (1) COVID: (2) Acute hypoxic respiratory failure: (3) Pneumonia: (4) DM type 2 (diabetes mellitus, type 2): Plan Pt is an 88yoF with PMhx significant for HTN, CKD, and DM II admitted with acute hypoxic respiratory failure in the setting of a prior covid infection. Acute hypoxic respiratory failure COVID infection Pneumonia Pt hypoxic to 87%, WBC elevated, tachypneic Chest xray in ER w/o pna Sputum Cx - normal ness COVID positive of 08/27 lactate normal Procal negat., Decadron 10mg IV given in the ED, cont. decadron Duonebs and mucinex scheduled Supportive care Supplemental oxygen as needed, was on 2-3L of suppl. O2, today on RA Given oxygen requirement and recent dg. of covid infection, elderly age/immunocom. , concern for developing superimposed bact. pna- cont. empiric abx CKD Cr of 1.2 Appears to be at baseline upon further review of chart Received IV fluids in the ED Will hold off on further IV hydration at this time Push PO intake Hold nephrotoxic meds DMII Basal/bolus per protocol in setting of decadron/steroid use Pharmacy glycemic consult Hold home glipizide and insulin Continue other home meds as ordered CODE STATUS: Full code DVT prophy: Heparin SQ Diet: DMII Dispo: Med/surg tele Admission and Anticipated Discharge Date Admission Date: September 06, 2023 Subjective Pt seen in follow up of hypoxia, + covid Sitting up in bed in NAD, on suppl. O2 yesterday, today on RA She says she feels better, she is also coughing up more sputum Review of Systems Review of Systems: All systems reviewed & are unremarkable except as noted in Subjective Physical Exam 2 Physical Exam: General: WD/WN elderly F in NAD, weak appearing, on RA HEENT: NC/AT Chest: Nontender to palpation. CV: RRR Resp: +mild rhonchi, + mild scattered wheezes, on RA Abdomen: Soft, nontender, + bowel sounds Extremities: trace edema in lower extremities bilaterally. Skin: No noted rashes or bruises Psych: Appropriate mood and affect Neuro: awake, alert, oriented, answers appropriately, speech fluent, moves extremities Results & Data Results & Data Vital Signs (Past 12 Hours) Vital Signs Temp Pulse Pulse Resp BP BP Pulse Ox 01/06/24 08:01 77 16 94 09/09/23 07:52 190/72 H 09/09/23 07:51 36.5 C 79 18 190/64 H 92 09/09/23 07:34 65 09/09/23 04:22 97 09/09/23 04:21 98 09/09/23 03:34 36.5 C 72 20 164/71 H 95 09/09/23 02:19 71 16 95 09/09/23 00:26 67 16 96 09/08/23 23:44 09/08/23 23:38 36.8 C 72 20 157/72 H 96 09/08/23 21:56 67 O2 Del Method O2 Flow Rate 09/09/23 08:01 Room Air 09/09/23 07:52 09/09/23 07:51 Room Air 09/09/23 07:34 09/09/23 04:22 Nasal Cannula 1 09/09/23 04:21 Nasal Cannula 2 09/09/23 03:34 Room Air 09/09/23 02:19 Nasal Cannula 2 09/09/23 00:26 Nasal Cannula 2 09/08/23 23:44 Nasal Cannula 2 09/08/23 23:38 Nasal Cannula 2 09/08/23 21:56 Laboratory Results 09/09/23 09/09/23 09/08/23 Range/Units 08:31 06:07 20:17 Sodium 135 L (136-145) mmol/L Potassium 4.5 (3.5-5.1) mmol/L Chloride 105 (98-107) mmol/L Carbon Dioxide 21 (21-32) mmol/L Anion Gap 9 (3-11) BUN 41 H (6-23) mg/dl Creatinine 1.24 H (0.6-1.2) mg/dl Est Cr Clr Drug Dosing 29.4 ml/min Est GFR ( Amer) 44.6 ml/min Est GFR (Non-Af Amer) 38.5 ml/min BUN/Creatinine Ratio 33.1 H (10-20) Glucose 94 (70-99(Fasting)) mg/dl POC Glucose 114 H 103 H (70-99) mg/dl Calcium 8.6 (8.6-10.3) mg/dl Phosphorus 3.9 (2.5-4.9) mg/dl Magnesium 1.9 (1.7-2.4) mg/dl 09/08/23 09/08/23 09/08/23 Range/Units 17:26 12:09 08:43 Sodium (136-145) mmol/L Potassium (3.5-5.1) mmol/L Chloride (98-107) mmol/L Carbon Dioxide (21-32) mmol/L Anion Gap (3-11) BUN (6-23) mg/dl Creatinine (0.6-1.2) mg/dl Est Cr Clr Drug Dosing ml/min Est GFR ( Amer) ml/min Est GFR (Non-Af Amer) ml/min BUN/Creatinine Ratio (10-20) Glucose (70-99(Fasting)) mg/dl POC Glucose 95 171 H 109 H (70-99) mg/dl Calcium (8.6-10.3) mg/dl Phosphorus (2.5-4.9) mg/dl Magnesium (1.7-2.4) mg/dl Medications Administered Current Inpatient Medications Acetaminophen (Acetaminophen 500 Mg Tab) 1,000 mg PO Q8H PRN PRN Reason: Pain or Fever Stop: 10/06/23 08:10 Albuterol (Albut/Ipratrop 3mg/0.5mg Neb 3 Ml Vial) 3 ml NEB Q4R PIOTR; Protocol Stop: 10/06/23 10:59 Last Admin: 09/09/23 08:00 Dose: 3 ml Albuterol (Albut/Ipratrop 3mg/0.5mg Neb 3 Ml Vial) 3 ml NEB Q2H PRN; Protocol PRN Reason: wheezing Stop: 10/07/23 16:59 Last Admin: 09/07/23 20:52 Dose: 3 ml Amlodipine Besylate (Amlodipine Besylate 5 Mg Tab) 5 mg PO DAILY [facility] Stop: 10/09/23 08:59 Atenolol (Atenolol 50 Mg Tablet) 50 mg PO QAM PIOTR Stop: 10/06/23 08:59 Last Admin: 09/08/23 08:48 Dose: 50 mg Cefuroxime Axetil (Cefuroxime Axetil 250 Mg Tablet) 250 mg PO BID [facility] Stop: 09/14/23 09:59 Last Admin: 09/08/23 20:56 Dose: 250 mg Clonidine HCl (Clonidine Hcl 0.1 Mg Tab) 0.1 mg PO TID PIOTR Stop: 10/06/23 08:59 Last Admin: 09/08/23 21:13 Dose: 0.1 mg Dextrose (Dextrose 50% 50 Ml Syringe) 25 - 50 ml IV UD PRN; Protocol PRN Reason: Hypoglycemia Protocol Stop: 10/06/23 07:42 Doxycycline Hyclate (Doxycycline Hyclate 100 Mg Cap) 100 mg PO BID PIOTR Stop: 09/14/23 09:29 Last Admin: 09/08/23 20:57 Dose: 100 mg Glucagon (Glucagon For Inj 1 Mg Vial) 1 mg SQ UD PRN; Protocol PRN Reason: Hypoglycemia Protocol Stop: 10/06/23 07:42 Glucose (Glucose 10 Tab/Tube) 4 - 8 tab PO UD PRN; Protocol PRN Reason: Hypoglycemia Treatment Stop: 10/06/23 07:42 Glucose (Glucose 40% Gel 15 Gm Tube) 15 - 30 gm PO UD PRN; Protocol PRN Reason: Hypoglycemia Protocol Stop: 10/06/23 07:42 Guaifenesin (Guaifenesin 600 Mg Tabcr) 1,200 mg PO Q12 PIOTR Stop: 10/06/23 08:59 Last Admin: 09/08/23 20:57 Dose: 1,200 mg Heparin Sodium (Porcine) (Heparin Sod 5,000 Unit/0.5 Ml Vial) 5,000 units SQ Q8 PIOTR Stop: 10/06/23 13:59 Last Admin: 09/09/23 05:33 Dose: 5,000 units Hydrocodone Bit/Homatropine Methylb (Hydrocodone/Homatropine Syrup 5mg/1.5mg 5ml Udp) 5 ml PO Q6H PRN PRN Reason: Cough Stop: 09/20/23 08:09 Last Admin: 09/08/23 21:13 Dose: 5 ml Dexamethasone 6 mg/ Syringe 1.5 mls @ 1 mls/min IV Q24H PIOTR Stop: 10/07/23 05:59 Last Admin: 09/08/23 08:48 Dose: 1 mls/min Insulin Aspart (Insulin Aspart Per Unit Charge) 0 units SC ACHS PIOTR Stop: 10/06/23 07:59 Last Admin: 09/08/23 20:44 Dose: Not Given Insulin Glargine (Lantus Per Unit Charge) 15 units SC DAILY PIOTR Stop: 10/08/23 12:29 Last Admin: 09/08/23 12:49 Dose: 15 units Lactobacillus Acidophilus (Advanced Probiotic 1250 Mg Capsule) 2 cap PO DAILY PIOT[facility] Stop: 10/07/23 16:59 Last Admin: 09/08/23 08:48 Dose: 2 cap Miscellaneous (Carbohydrates For Hypoglycemia ) 15 - 30 gm PO UD PRN PRN Reason: Hypoglycemia Protocol Stop: 10/06/23 07:42 Last Admin: 09/08/23 08:03 Dose: 15 gm Miscellaneous Information (Pharmacy Glycemic Mgmt Consult) 1 each N/A UD PRN PRN Reason: Consult Stop: 10/06/23 07:42 Ondansetron HCl (Ondansetron Inj 2 Mg/Ml 2 Ml Vial) 4 mg IV Q6H PRN PRN Reason: Nausea And Vomiting Stop: 10/06/23 08:10 Vitamin D (Cholecalciferol 1,000 Units 25 Mcg Tab) 2,000 units PO DAILY PIOTR Stop: 10/06/23 08:59 Last Admin: 09/08/23 08:50 Dose: 2,000 units (3) Pneumonia Laterality: bilateral Lung location: lower lobe of lung Pneumonia type: due to unspecified organism Qualified Code(s): J18.9 - Pneumonia, unspecified organism
[2023-09-09] MEDS: INSULIN ASPART PER UNIT CHARGE SC SCH ×4 (09:13→21:29)
[2023-09-09] MEDS: cefUROXime axetil 250 MG TABLET PO SCH ×2 (09:16→21:32)
[2023-09-09] MEDS: ADVANCED PROBIOTIC 1250 MG CAPSULE PO SCH (09:17)
[2023-09-09] MEDS: ATENOLOL 50 MG TABLET PO SCH (09:17)
[2023-09-09] MEDS: guaiFENesin 600 MG TABCR PO SCH ×2 (09:17→21:33)
[2023-09-09] MEDS: CHOLECALCIFEROL 1,000 UNITS 25 MCG TAB PO SCH (09:17)
[2023-09-09] MEDS: DOXYCYCLINE HYCLATE 100 MG CAP PO SCH ×2 (09:18→21:35)
[2023-09-09] MEDS: dexAMETHasone 6 MG in SYRINGE 0 ML IV SCH (09:18)
[2023-09-09] MEDS: LANTUS PER UNIT CHARGE SC SCH (10:27)
[2023-09-09] MEDS: cloNIDine HCL 0.1 MG TAB PO SCH ×3 (10:34→21:31)
[2023-09-09] MEDS: amLODIPine BESYLATE 5 MG TAB PO SCH (10:34)
[2023-09-09] MEDS ORDERED: hydrALAZINE HCL 25 MG TAB PO STA (12:18)
[2023-09-09] MEDS: POLYETHYLENE (MIRALAX) 17 GM PACK PO SCH (13:00)
[2023-09-09] MEDS: HYDROcodone/HOMATROPINE SYRUP 5MG/1.5MG 5ML UDP PO PRN (21:31)
[2023-09-10] MEDS: ALBUT/IPRATROP 3MG/0.5MG NEB 3 ML VIAL NEB SCH ×6 (02:41→22:31)
[2023-09-10] MEDS: HEPARIN SOD 5,000 UNIT/0.5 ML VIAL SQ SCH ×3 (06:02→20:52)
[2023-09-10] MEDS: HYDROcodone/HOMATROPINE SYRUP 5MG/1.5MG 5ML UDP PO PRN ×2 (06:12→21:08)
[2023-09-10 08:03] LABS: Calcium 8.6 mg/dl (8.6-10.3); Creatinine Clr Calc Pharmacy 28.7 ml/min; Est GFR (African American) 44.2 ml/min; Est GFR (Non-African American) 38.1 ml/min; Magnesium 1.9 mg/dl (1.7-2.4); Phosphorus 4.2 mg/dl (2.5-4.9); Potassium 4.5 mmol/L (3.5-5.1)
--- NOTE | 2023-09-10 08:21 | Hospitalist Progress Note ---
Date of Service September 10, 2023 Assessment & Plan (1) COVID: (2) Acute hypoxic respiratory failure: (3) Pneumonia: (4) DM type 2 (diabetes mellitus, type 2): Plan Pt is an 88yoF with PMhx significant for HTN, CKD, and DM II admitted with acute hypoxic respiratory failure in the setting of a prior covid infection. Acute hypoxic respiratory failure COVID infection Pneumonia Pt hypoxic to 87%, WBC elevated, tachypneic Chest xray in ER w/o pna Sputum Cx - normal ness COVID positive of 08/27 lactate normal Procal negat., Decadron 10mg IV given in the ED, cont. decadron Duonebs and mucinex scheduled Supportive care Supplemental oxygen as needed, was on 2-3L of suppl. O2, today on RA Given oxygen requirement and recent dg. of covid infection, elderly age/immunocom. , concern for developing superimposed bact. pna- cont. empiric abx 09/10 pt still w/ wheezing, cont. breathing treatment and therapy as above CKD Cr of 1.2 Appears to be at baseline upon further review of chart Received IV fluids in the ED Will hold off on further IV hydration at this time Push PO intake Hold nephrotoxic meds DMII Basal/bolus per protocol in setting of decadron/steroid use Pharmacy glycemic consult Hold home glipizide and insulin Continue other home meds as ordered CODE STATUS: Full code DVT prophy: Heparin SQ Diet: DMII Dispo: Med/surg tele Admission and Anticipated Discharge Date Admission Date: September 06, 2023 Subjective Pt seen in follow up of hypoxia, + covid Sitting up in bed in NAD, on suppl. O2 previously, today on RA. Continues to have a cough and wheezing. Just finished breathing treatment. Discussed with RT and RN - continues with cough and sputum production. Ambulates with walker to bathroom. Discussed w/ PT (as previously recommended rehab) and pt seen today - walking in hallway w/ walker - now recommend to return home. Pt's son updated over the phone. Review of Systems Review of Systems: All systems reviewed & are unremarkable except as noted in Subjective Physical Exam Physical Exam: General: WD/WN elderly F in NAD, weak appearing, on RA HEENT: NC/AT Chest: Nontender to palpation. CV: RRR Resp: +mild rhonchi (improved), + mild scattered wheezes (improved), on RA Abdomen: Soft, nontender, + bowel sounds Extremities: trace edema in lower extremities bilaterally. Skin: No noted rashes or bruises Psych: Appropriate mood and affect Neuro: awake, alert, oriented, answers appropriately, speech fluent, moves extremities Results & Data Results & Data Vital Signs (Past 12 Hours) Vital Signs Temp Pulse Pulse Resp BP Pulse Ox O2 Del Method 09/10/23 07:51 87 18 94 Room Air 09/10/23 07:29 79 09/10/23 07:21 36.6 C 87 16 143/86 H 93 Room Air 09/10/23 02:58 36.7 C 74 16 182/69 H 94 Room Air 09/10/23 02:41 79 16 95 Room Air 09/09/23 23:36 72 09/09/23 23:20 Room Air 09/09/23 23:12 36.7 C 86 16 150/62 H 96 Room Air 09/09/23 22:30 78 16 96 Room Air Laboratory Results 09/10/23 09/09/23 09/09/23 Range/Units 07:18 20:20 17:23 Sodium 134 L (136-145) mmol/L Potassium 4.5 (3.5-5.1) mmol/L Chloride 106 (98-107) mmol/L Carbon Dioxide 19 L (21-32) mmol/L Anion Gap 9 (3-11) BUN 45 H (6-23) mg/dl Creatinine 1.25 H (0.6-1.2) mg/dl Est Cr Clr Drug Dosing 28.7 ml/min Est GFR ( Amer) 44.2 ml/min Est GFR (Non-Af Amer) 38.1 ml/min BUN/Creatinine Ratio 36.0 H (10-20) Glucose 138 H (70-99(Fasting)) mg/dl POC Glucose 270 H 192 H (70-99) mg/dl Calcium 8.6 (8.6-10.3) mg/dl Phosphorus 4.2 (2.5-4.9) mg/dl Magnesium 1.9 (1.7-2.4) mg/dl 09/09/23 09/09/23 Range/Units 12:31 08:31 Sodium (136-145) mmol/L Potassium (3.5-5.1) mmol/L Chloride (98-107) mmol/L Carbon Dioxide (21-32) mmol/L Anion Gap (3-11) BUN (6-23) mg/dl Creatinine (0.6-1.2) mg/dl Est Cr Clr Drug Dosing ml/min Est GFR ( Amer) ml/min Est GFR (Non-Af Amer) ml/min BUN/Creatinine Ratio (10-20) Glucose (70-99(Fasting)) mg/dl POC Glucose 82 114 H (70-99) mg/dl Calcium (8.6-10.3) mg/dl Phosphorus (2.5-4.9) mg/dl Magnesium (1.7-2.4) mg/dl Medications Administered Current Inpatient Medications Acetaminophen (Acetaminophen 500 Mg Tab) 1,000 mg PO Q8H PRN PRN Reason: Pain or Fever Stop: 10/06/23 08:10 Albuterol (Albut/Ipratrop 3mg/0.5mg Neb 3 Ml Vial) 3 ml NEB Q4R PIOTR; Protocol Stop: 10/06/23 10:59 Last Admin: 09/10/23 07:50 Dose: 3 ml Albuterol (Albut/Ipratrop 3mg/0.5mg Neb 3 Ml Vial) 3 ml NEB Q2H PRN; Protocol PRN Reason: wheezing Stop: 10/07/23 16:59 Last Admin: 09/07/23 20:52 Dose: 3 ml Amlodipine Besylate (Amlodipine Besylate 5 Mg Tab) 5 mg PO DAILY [facility] Stop: 10/09/23 08:59 Last Admin: 09/09/23 10:34 Dose: 5 mg Atenolol (Atenolol 50 Mg Tablet) 50 mg PO QAM PIOTR Stop: 10/06/23 08:59 Last Admin: 09/09/23 09:17 Dose: 50 mg Cefuroxime Axetil (Cefuroxime Axetil 250 Mg Tablet) 250 mg PO BID [facility] Stop: 09/14/23 09:59 Last Admin: 09/09/23 21:32 Dose: 250 mg Clonidine HCl (Clonidine Hcl 0.1 Mg Tab) 0.1 mg PO TID [facility]OT[facility] Stop: 10/06/23 08:59 Last Admin: 09/09/23 21:31 Dose: 0.1 mg Dextrose (Dextrose 50% 50 Ml Syringe) 25 - 50 ml IV UD PRN; Protocol PRN Reason: Hypoglycemia Protocol Stop: 10/06/23 07:42 Doxycycline Hyclate (Doxycycline Hyclate 100 Mg Cap) 100 mg PO BID [facility] Stop: 09/14/23 09:29 Last Admin: 09/09/23 21:35 Dose: 100 mg Glucagon (Glucagon For Inj 1 Mg Vial) 1 mg SQ UD PRN; Protocol PRN Reason: Hypoglycemia Protocol Stop: 10/06/23 07:42 Glucose (Glucose 10 Tab/Tube) 4 - 8 tab PO UD PRN; Protocol PRN Reason: Hypoglycemia Treatment Stop: 10/06/23 07:42 Glucose (Glucose 40% Gel 15 Gm Tube) 15 - 30 gm PO UD PRN; Protocol PRN Reason: Hypoglycemia Protocol Stop: 10/06/23 07:42 Guaifenesin (Guaifenesin 600 Mg Tabcr) 1,200 mg PO Q12 PIOT[facility] Stop: 10/06/23 08:59 Last Admin: 09/09/23 21:33 Dose: 1,200 mg Heparin Sodium (Porcine) (Heparin Sod 5,000 Unit/0.5 Ml Vial) 5,000 units SQ Q8 PIOTR Stop: 10/06/23 13:59 Last Admin: 09/10/23 06:02 Dose: 5,000 units Hydrocodone Bit/Homatropine Methylb (Hydrocodone/Homatropine Syrup 5mg/1.5mg 5ml Udp) 5 ml PO Q6H PRN PRN Reason: Cough Stop: 09/20/23 08:09 Last Admin: 09/10/23 06:12 Dose: 5 ml Dexamethasone 6 mg/ Syringe 1.5 mls @ 1 mls/min IV Q24H PIOTR Stop: 10/07/23 05:59 Last Admin: 09/09/23 09:18 Dose: 1 mls/min Insulin Aspart (Insulin Aspart Per Unit Charge) 0 units SC ACHS PIOTR Stop: 10/06/23 07:59 Last Admin: 09/09/23 21:29 Dose: 5 units Insulin Glargine (Lantus Per Unit Charge) 15 units SC DAILY [facility] Stop: 10/08/23 12:29 Last Admin: 09/09/23 10:27 Dose: 15 units Lactobacillus Acidophilus (Advanced Probiotic 1250 Mg Capsule) 2 cap PO DAILY [facility] Stop: 10/07/23 16:59 Last Admin: 09/09/23 09:17 Dose: 2 cap Miscellaneous (Carbohydrates For Hypoglycemia ) 15 - 30 gm PO UD PRN PRN Reason: Hypoglycemia Protocol Stop: 10/06/23 07:42 Last Admin: 09/08/23 08:03 Dose: 15 gm Miscellaneous Information (Pharmacy Glycemic Mgmt Consult) 1 each N/A UD PRN PRN Reason: Consult Stop: 10/06/23 07:42 Ondansetron HCl (Ondansetron Inj 2 Mg/Ml 2 Ml Vial) 4 mg IV Q6H PRN PRN Reason: Nausea And Vomiting Stop: 10/06/23 08:10 Polyethylene Glycol (Polyethylene (Miralax) 17 Gm Pack) 17 gm PO DAILY [facility]OT[facility] Stop: 10/09/23 13:14 Last Admin: 09/09/23 13:00 Dose: Not Given Vitamin D (Cholecalciferol 1,000 Units 25 Mcg Tab) 2,000 units PO DAILY PIOT[facility] Stop: 10/06/23 08:59 Last Admin: 09/09/23 09:17 Dose: 2,000 units (3) Pneumonia Laterality: bilateral Lung location: lower lobe of lung Pneumonia type: due to unspecified organism Qualified Code(s): J18.9 - Pneumonia, unspecified organism
[2023-09-10] MEDS: cloNIDine HCL 0.1 MG TAB PO SCH ×3 (08:38→21:08)
[2023-09-10] MEDS: amLODIPine BESYLATE 5 MG TAB PO SCH (08:39)
[2023-09-10] MEDS: dexAMETHasone 6 MG in SYRINGE 0 ML IV SCH (08:39)
[2023-09-10] MEDS: ATENOLOL 50 MG TABLET PO SCH (08:41)
[2023-09-10] MEDS: CHOLECALCIFEROL 1,000 UNITS 25 MCG TAB PO SCH (08:41)
[2023-09-10] MEDS: ADVANCED PROBIOTIC 1250 MG CAPSULE PO SCH (08:41)
[2023-09-10] MEDS: cefUROXime axetil 250 MG TABLET PO SCH ×2 (08:42→20:52)
[2023-09-10] MEDS: guaiFENesin 600 MG TABCR PO SCH ×2 (08:42→20:53)
[2023-09-10] MEDS: POLYETHYLENE (MIRALAX) 17 GM PACK PO SCH (08:52)
[2023-09-10] MEDS ORDERED: LANTUS PER UNIT CHARGE SC SCH (09:00)
[2023-09-10] MEDS: LANTUS PER UNIT CHARGE SC SCH (09:05)
[2023-09-10] MEDS: INSULIN ASPART PER UNIT CHARGE SC SCH ×4 (09:05→20:45)
[2023-09-10] MEDS: DOXYCYCLINE HYCLATE 100 MG CAP PO SCH ×2 (11:33→20:52)
[2023-09-11] MEDS: ALBUT/IPRATROP 3MG/0.5MG NEB 3 ML VIAL NEB SCH ×6 (02:17→23:05)
[2023-09-11] MEDS: HEPARIN SOD 5,000 UNIT/0.5 ML VIAL SQ SCH ×3 (05:48→22:20)
--- NOTE | 2023-09-11 09:10 | Pharmacy Report ---
Pharmacy Glycemic Short Note 2 - Date of Service September 11, 2023 - Glycemic Short BSG Results (Last 24 hours): 09/10/23 09/10/23 09/10/23 12:43 16:35 20:14 POC Glucose 189 H 132 H 135 H 09/11/23 07:58 POC Glucose 121 H OUTPATIENT ANTIDIABETIC REGIMEN: * glipizide 10mg QAM * Lantus 22 units QHS HbA1c: 6.9% (09/07/23) ASSESSMENT: 09/11/23: * BSGs remain reasonably well-controlled w/ occasional episodes of hyperglycemia * Received 39 units of insulin yesterday (15 units of basal and 24 units of prandial/correctional bolus) * Remains on dexamethasone 6 mg IV daily * Do not anticipate any changes to glycemic regimen today 09/08 * Be[place] received 28 units of insulin yesterday (20 were basal) * Slightly hypoglycemic this AM, patient reports to RN that she is sometimes low in the morning. Also slightly hypoglycemic yesterday at dinner. Insulin held with dinner and at bedtime. Reduced basal insulin by 25% in light of AM hypoglycemia and switched from NPH to Lantus due to dinner hypoglycemia (NPH has more prandial coverage) * Novolog carb ratio loosened at dinner with hypoglycemia. Will loosen correction factor and slightly tighten carb ratio with discontinuation of NPH. 09/06: * Belem is an 88 YOF admitted with hypoxia post Covid-19 infection and a history of T2DM. Pharmacy has been consulted to assist with glycemic management. * Fasting BSG slightly above goal range. Will allow for a Lantus scale at bedtime up to about home dose based on bedtime BSGs * Dexamethasone 10mg IV given this AM, dexamethasone 6mg daily ordered. Will cover for steroid induced hyperglycemia with 0.3 units/kg insulin NPH given with dexamethasone. * Novolog initiated at a weight based stress of 3. PLAN FOR INPATIENT GLYCEMIC CONTROL: * Hold outpatient oral diabetes medications * Basal insulin * Lantus 15 units daily * Bolus insulin * NovoLog per scale ACHS or Q6hrs while NPO * Goal Range: Low 110 mg/dL - High 140 mg/dL * Correction Factor: 30 mg/dL/unit * Nutritional / Prandial insulin per carb ratio of 1 unit per 7 grams CHO consumed
[2023-09-11] MEDS: DOXYCYCLINE HYCLATE 100 MG CAP PO SCH ×2 (09:12→22:19)
[2023-09-11] MEDS: cefUROXime axetil 250 MG TABLET PO SCH ×2 (09:12→22:19)
[2023-09-11] MEDS: ADVANCED PROBIOTIC 1250 MG CAPSULE PO SCH (09:13)
[2023-09-11] MEDS: POLYETHYLENE (MIRALAX) 17 GM PACK PO SCH (09:13)
[2023-09-11] MEDS: guaiFENesin 600 MG TABCR PO SCH ×2 (09:13→22:19)
[2023-09-11] MEDS: ATENOLOL 50 MG TABLET PO SCH (09:13)
[2023-09-11] MEDS: amLODIPine BESYLATE 5 MG TAB PO SCH (09:13)
[2023-09-11] MEDS: CHOLECALCIFEROL 1,000 UNITS 25 MCG TAB PO SCH (09:14)
[2023-09-11] MEDS: dexAMETHasone 6 MG in SYRINGE 0 ML IV SCH (09:14)
[2023-09-11] MEDS: INSULIN ASPART PER UNIT CHARGE SC SCH ×4 (09:23→22:09)
[2023-09-11] MEDS: LANTUS PER UNIT CHARGE SC SCH (09:24)
[2023-09-11] MEDS: cloNIDine HCL 0.1 MG TAB PO SCH ×3 (09:27→22:19)
--- NOTE | 2023-09-11 09:31 | Hospitalist Progress Note ---
Date of Service September 11, 2023 Assessment & Plan (1) COVID: (2) Acute hypoxic respiratory failure: (3) Pneumonia: (4) DM type 2 (diabetes mellitus, type 2): Plan Pt is an 88yoF with PMhx significant for HTN, CKD, and DM II admitted with acute hypoxic respiratory failure in the setting of a prior covid infection. Acute hypoxic respiratory failure COVID infection Pneumonia Pt hypoxic to 87%, WBC elevated, tachypneic Chest xray in ER w/o pna Sputum Cx - normal ness COVID positive of 08/27 lactate normal Procal negat., Decadron 10mg IV given in the ED, cont. decadron Duonebs and mucinex scheduled Supportive care Supplemental oxygen as needed, was on 2-3L of suppl. O2, today on RA Given oxygen requirement and recent dg. of covid infection, elderly age/immunocom. , concern for developing superimposed bact. pna- cont. empiric abx 09/10 pt still w/ wheezing, cont. breathing treatment and therapy as above 09/11 overall improved, wheezing improved as well, possibly DC tmrw CKD Cr of 1.2 Appears to be at baseline upon further review of chart Received IV fluids in the ED Will hold off on further IV hydration at this time Push PO intake Hold nephrotoxic meds DMII Basal/bolus per protocol in setting of decadron/steroid use Pharmacy glycemic consult Hold home glipizide and insulin Continue other home meds as ordered CODE STATUS: Full code DVT prophy: Heparin SQ Diet: DMII Dispo: Med/surg tele Admission and Anticipated Discharge Date Admission Date: September 06, 2023 Subjective Pt seen in follow up of hypoxia, + covid Sitting up in bed in NAD, on suppl. O2 previously, today on RA. Continues to have a cough and wheezing. Wheezing is improved. continues with cough and sputum production. Ambulates with walker to bathroom. Discussed w/ PT (as previously recommended rehab) and pt seen again- walking in hallway w/ walker - now recommend to return home. Pt's son updated today at the bedside. Review of Systems Review of Systems: All systems reviewed & are unremarkable except as noted in Subjective Physical Exam Physical Exam: General: WD/WN elderly F in NAD, on RA HEENT: NC/AT Chest: Nontender to palpation. CV: RRR Resp: +mild rhonchi (improved), + mild scattered wheezes (improved), on RA Abdomen: Soft, nontender, + bowel sounds Extremities: trace edema in lower extremities bilaterally. Skin: No noted rashes or bruises Psych: Appropriate mood and affect Neuro: awake, alert, oriented, answers appropriately, speech fluent, moves extremities Results & Data Results & Data Vital Signs (Past 12 Hours) Vital Signs Temp Pulse Pulse Resp BP BP Pulse Ox 09/11/23 08:05 36.5 C 81 16 161/75 H 95 09/11/23 07:33 87 18 96 09/11/23 05:56 83 09/11/23 02:45 36.6 C 83 20 154/74 H 97 09/11/23 02:18 83 18 97 09/10/23 23:08 37.1 C 85 18 158/68 H 93 09/10/23 22:31 86 16 95 09/10/23 21:56 81 O2 Del Method 09/11/23 08:05 Room Air 09/11/23 07:33 Room Air 09/11/23 05:56 09/11/23 02:45 Room Air 09/11/23 02:18 Room Air 09/10/23 23:08 Room Air 09/10/23 22:31 Room Air 09/10/23 21:56 Medications Administered Current Inpatient Medications Acetaminophen (Acetaminophen 500 Mg Tab) 1,000 mg PO Q8H PRN PRN Reason: Pain or Fever Stop: 10/06/23 08:10 Albuterol (Albut/Ipratrop 3mg/0.5mg Neb 3 Ml Vial) 3 ml NEB Q4R PIOTR; Protocol Stop: 10/06/23 10:59 Last Admin: 09/11/23 07:33 Dose: 3 ml Albuterol (Albut/Ipratrop 3mg/0.5mg Neb 3 Ml Vial) 3 ml NEB Q2H PRN; Protocol PRN Reason: wheezing Stop: 10/07/23 16:59 Last Admin: 09/07/23 20:52 Dose: 3 ml Amlodipine Besylate (Amlodipine Besylate 5 Mg Tab) 5 mg PO DAILY [facility]OT[facility] Stop: 10/09/23 08:59 Last Admin: 09/11/23 09:13 Dose: 5 mg Atenolol (Atenolol 50 Mg Tablet) 50 mg PO QAM PIOTR Stop: 10/06/23 08:59 Last Admin: 09/11/23 09:13 Dose: 50 mg Cefuroxime Axetil (Cefuroxime Axetil 250 Mg Tablet) 250 mg PO BID PIOTR Stop: 09/14/23 09:59 Last Admin: 09/11/23 09:12 Dose: 250 mg Clonidine HCl (Clonidine Hcl 0.1 Mg Tab) 0.1 mg PO TID PIOTR Stop: 10/06/23 08:59 Last Admin: 09/11/23 09:27 Dose: 0.1 mg Dextrose (Dextrose 50% 50 Ml Syringe) 25 - 50 ml IV UD PRN; Protocol PRN Reason: Hypoglycemia Protocol Stop: 10/06/23 07:42 Doxycycline Hyclate (Doxycycline Hyclate 100 Mg Cap) 100 mg PO BID PIOTR Stop: 09/14/23 09:29 Last Admin: 09/11/23 09:12 Dose: 100 mg Glucagon (Glucagon For Inj 1 Mg Vial) 1 mg SQ UD PRN; Protocol PRN Reason: Hypoglycemia Protocol Stop: 10/06/23 07:42 Glucose (Glucose 10 Tab/Tube) 4 - 8 tab PO UD PRN; Protocol PRN Reason: Hypoglycemia Treatment Stop: 10/06/23 07:42 Glucose (Glucose 40% Gel 15 Gm Tube) 15 - 30 gm PO UD PRN; Protocol PRN Reason: Hypoglycemia Protocol Stop: 10/06/23 07:42 Guaifenesin (Guaifenesin 600 Mg Tabcr) 1,200 mg PO Q12 PIOTR Stop: 10/06/23 08:59 Last Admin: 09/11/23 09:13 Dose: 1,200 mg Heparin Sodium (Porcine) (Heparin Sod 5,000 Unit/0.5 Ml Vial) 5,000 units SQ Q8 PIOTR Stop: 10/06/23 13:59 Last Admin: 09/11/23 05:48 Dose: 5,000 units Hydrocodone Bit/Homatropine Methylb (Hydrocodone/Homatropine Syrup 5mg/1.5mg 5ml Udp) 5 ml PO Q6H PRN PRN Reason: Cough Stop: 09/20/23 08:09 Last Admin: 09/10/23 21:08 Dose: 5 ml Dexamethasone 6 mg/ Syringe 1.5 mls @ 1 mls/min IV Q24H PIOTR Stop: 10/07/23 05:59 Last Admin: 09/11/23 09:14 Dose: 1 mls/min Insulin Aspart (Insulin Aspart Per Unit Charge) 0 units SC ACHS PIOTR Stop: 10/06/23 07:59 Last Admin: 09/11/23 09:23 Dose: 6 units Insulin Glargine (Lantus Per Unit Charge) 15 units SC DAILY PIOTR Stop: 10/08/23 12:29 Last Admin: 09/11/23 09:24 Dose: 15 units Lactobacillus Acidophilus (Advanced Probiotic 1250 Mg Capsule) 2 cap PO DAILY PIOTR Stop: 10/07/23 16:59 Last Admin: 09/11/23 09:13 Dose: 2 cap Miscellaneous (Carbohydrates For Hypoglycemia ) 15 - 30 gm PO UD PRN PRN Reason: Hypoglycemia Protocol Stop: 10/06/23 07:42 Last Admin: 09/08/23 08:03 Dose: 15 gm Miscellaneous Information (Pharmacy Glycemic Mgmt Consult) 1 each N/A UD PRN PRN Reason: Consult Stop: 10/06/23 07:42 Ondansetron HCl (Ondansetron Inj 2 Mg/Ml 2 Ml Vial) 4 mg IV Q6H PRN PRN Reason: Nausea And Vomiting Stop: 10/06/23 08:10 Polyethylene Glycol (Polyethylene (Miralax) 17 Gm Pack) 17 gm PO DAILY PIOTR Stop: 10/09/23 13:14 Last Admin: 09/11/23 09:13 Dose: 17 gm Vitamin D (Cholecalciferol 1,000 Units 25 Mcg Tab) 2,000 units PO DAILY [facility] Stop: 10/06/23 08:59 Last Admin: 09/11/23 09:14 Dose: 2,000 units (3) Pneumonia Laterality: bilateral Lung location: lower lobe of lung Pneumonia type: due to unspecified organism Qualified Code(s): J18.9 - Pneumonia, unspecified organism
[2023-09-11] MEDS ORDERED: POLYETHYLENE (MIRALAX) 17 GM PACK PO PRN (14:47)
[2023-09-11] MEDS: CARBOHYDRATES FOR HYPOGLYCEMIA PO PRN (22:21)
[2023-09-11] MEDS ORDERED: hydrALAZINE HCL 20 MG/ML VIAL IV ONE (23:21)
[2023-09-12] MEDS: ALBUT/IPRATROP 3MG/0.5MG NEB 3 ML VIAL NEB SCH ×4 (03:15→14:53)
[2023-09-12] MEDS: HEPARIN SOD 5,000 UNIT/0.5 ML VIAL SQ SCH ×2 (05:58→13:19)
[2023-09-12] MEDS: cefUROXime axetil 250 MG TABLET PO SCH (08:14)
[2023-09-12] MEDS: guaiFENesin 600 MG TABCR PO SCH (08:14)
[2023-09-12] MEDS: DOXYCYCLINE HYCLATE 100 MG CAP PO SCH (08:15)
[2023-09-12] MEDS: ATENOLOL 50 MG TABLET PO SCH (08:15)
[2023-09-12] MEDS: CHOLECALCIFEROL 1,000 UNITS 25 MCG TAB PO SCH (08:15)
[2023-09-12] MEDS: ADVANCED PROBIOTIC 1250 MG CAPSULE PO SCH (08:15)
[2023-09-12] MEDS: amLODIPine BESYLATE 5 MG TAB PO SCH (08:15)
[2023-09-12] MEDS: dexAMETHasone 6 MG in SYRINGE 0 ML IV SCH (08:16)
[2023-09-12] MEDS: INSULIN ASPART PER UNIT CHARGE SC SCH ×2 (09:27→13:04)
[2023-09-12] MEDS: LANTUS PER UNIT CHARGE SC SCH (09:28)
[2023-09-12] MEDS: cloNIDine HCL 0.1 MG TAB PO SCH ×2 (09:34→13:19)
[2023-09-12] MEDS ORDERED: FUROSEMIDE 20 MG TAB PO SCH (10:15)
--- NOTE | 2023-09-12 10:44 | Discharge Summary ---
Date of Service September 12, 2023 Admission HPI Per Admitting Provider Pt is an 88yoF with PMhx significant for HTN, CKD, and DM II admitted with acute hypoxic respiratory failure in the setting of a prior covid infection. Brought in by son and . They state that she was diagnosed with COVID on [place] and passed out at that time. Since then she has had a progressive worsening of her symptoms. In particular, they note a deep cough and feel like she cannot get anything out. Pt with significant hearing loss. They state they went over to the house to check on them and noted that they were both very ill and brought them in for further evaluation. Pt denies fevers or chills, States it does not hurt in chest when she coughs. Has been able to eat and drink. States is on lasix for edema though not on medication list provided. Admission Exam Per Admitting Provider General: Alert, oriented. No acute distress Skin: No noted rashes or bruises Psych: Appropriate mood and affect Neuro: No gross deficits HEENT: NC/AT Chest: Nontender to palpation. CV: RRR Resp: Breath sounds coarse bilaterally, no increased effort of breathing. Scattered wheezes Abdomen: Soft Extremities: edema in lower extremities bilaterally. Principal Diagnosis Acute hypoxic respiratory failure + COVID 19 Discharge Exam General: WD/WN elderly F in NAD, on RA HEENT: NC/AT Chest: Nontender to palpation. CV: RRR Resp: +mild rhonchi (improved), + mild scattered wheezes (improved), on RA Abdomen: Soft, nontender, + bowel sounds Extremities: trace edema in lower extremities bilaterally. Skin: No noted rashes or bruises Psych: Appropriate mood and affect Neuro: awake, alert, oriented, answers appropriately, speech fluent, moves extremities Discharge Data Allergies Allergy/AdvReac Type Severity Reaction Status Date / Time atorvastatin Allergy Severe RENAL Verified 06/15/21 00:36 COMPLICATIONS diltiazem Allergy Severe KIDNEY Verified 06/15/21 00:36 PROBLEMS ezetimibe Allergy Severe KIDNEY Verified 06/15/21 00:36 PROBLEMS lisinopril Allergy Severe RENAL Verified 06/15/21 00:36 COMPLICATIONS simvastatin Allergy Severe RENAL Verified 06/15/21 00:36 COMPLICATIONS chlorthalidone Allergy Mild Unknown Verified 06/15/21 00:36 ibuprofen Allergy Unknown Unknown Verified 06/15/21 00:36 naproxen Allergy Unknown Unknown Verified 06/15/21 00:36 NSAIDS (Non-Steroidal Allergy Unknown INTERSITIAL Verified 06/15/21 00:37 Anti-Inflamma NEPHRITIS PER [facility] pneumococcal vaccine AdvReac Severe ARM Verified 06/15/21 00:36 [From May 13 (PF)] REDDENED, SORE Consultations 09/06/23 05:20 ED Decision to Admit Stat Hospital Course (1) COVID: (2) Acute hypoxic respiratory failure: (3) Pneumonia: (4) DM type 2 (diabetes mellitus, type 2): Plan Pt is an 88yoF with PMhx significant for HTN, CKD, and DM II admitted with acute hypoxic respiratory failure in the setting of a prior covid infection. Acute hypoxic respiratory failure COVID infection Pneumonia Pt hypoxic to 87%, WBC elevated, tachypneic Chest xray in ER w/o pna Sputum Cx - normal ness COVID positive of 08/27 lactate normal Procal negat., Decadron 10mg IV given in the ED, cont. decadron Duonebs and mucinex scheduled Supportive care Supplemental oxygen as needed, was on 2-3L of suppl. O2, today on RA Given oxygen requirement and recent dg. of covid infection, elderly age/immunocom. , concern for developing superimposed bact. pna- cont. empiric abx 09/10 pt still w/ wheezing, cont. breathing treatment and therapy as above 09/11 -09/12 overall improved, wheezing improved as well, plan to Dc home CKD Cr of 1.2 Appears to be at baseline upon further review of chart Received IV fluids in the ED Will hold off on further IV hydration at this time Push PO intake Hold nephrotoxic meds DMII Basal/bolus per protocol in setting of decadron/steroid use Pharmacy glycemic consult Hold home glipizide and insulin Continue other home meds as ordered Total Time Total Time Spent Total Time Spent (In Minutes): 40 Discharge Plan Discharge Items Patient Disposition: Home - Self-Care Reason For Visit: SOB Discharge Diagnosis: Acute hypoxic respiratory failure + COVID 19 Activity: Per Instructions section Non-emergency contact: Primary Care Provider Call non-emergency contact if: you have any medication questions and your symptoms worsen Follow-up/Referrals: Ernesto Alston, [Primary Care Provider] - (This appointment is in conjunction with your spouse's appointment. Date & Time 09/18/2023 9:00 AM Provider Kristina Garcia MD Department [facility] ) Diet: Carb Consistent or DM2 Addtl Attending Provider Instructions: Follow up with your primary care physician within 1 week. The appointment was set up for you for 09/18/2023. Continue taking guaifenesin for next 5 days. Use albuterol inhaler as prescribed as needed. Addtl [employer] Provider Instructions: Coronavirus disease 2019 (COVID-19) is a virus that causes a respiratory illness. It is caused by a coronavirus called 2019 novel coronavirus (2019- nCoV). There are many types of coronavirus. Coronaviruses are a very common cause of bronchitis. They may sometimes cause lung infection(pneumonia). Symptoms can range from mild to severe respiratory illness. These viruses are also foundin some animals. COVID-19 was first found in people in [facility], in late 2018. In 2020, several cases of COVID-19 have been confirmed in the [place] Public health officials are working to find the source. How the virus spreads is not yet fully known. It may be spread through droplets of fluid that a person coughs or sneezes into the air. It may be spread if you touch a surface with virus on it, such as a handle or object, and then touch your mouth. What are the symptoms of COVID-19? Some people have no symptoms or mild symptoms. Symptoms may appear 2 to 14 days after contact with the virus. Symptoms can include: Fever Coughing Trouble breathing What are possible complications from COVID-19? In many cases, this virus can cause infection (pneumonia) in both lungs. In some cases, this can cause . How is COVID-19 diagnosed? Your healthcare provider will ask about your symptoms. He or she will also ask about your recent travel and contact with sick people. Testing for the virus is only done through the CDC. If yourhealthcare provider thinks you may have COVID- 19, he or she will work with your local health department and the CDC on testing. Follow all instructions from your healthcare provider. COVID-19 is diagnosed by: Nasal and throat swab. A cotton-tipped swab is wiped inside your nose or throat. This is done to check for viruses in your nasal mucus. Sputum culture. A small sample of mucus coughed from your lungs (sputum) is collected if you have a cough. It is checked for the virus. How is COVID-19 treated? There is currently no medicine to treat the virus. Treatment is done to help your body while it fights the virus. This is known as supportive care. Supportive care may include: Pain medicine. These include acetaminophen and ibuprofen. They are used to help ease pain and reduce fever. Bed rest. This helps your body fight the illness. For severe illness, you may need to stay in the hospital. Care during severe illness may include: IV (intravenous) fluids.These are given through a vein to help keep your body hydrated. Oxygen. Supplemental oxygen or ventilation with a breathing machine (ventilator) may be given. This is done to keep enough oxygen in your body. Are you at risk for COVID-19? If youve been to a place where people have been sick with this virus, you are at risk for infection. You are at risk if you: Recently traveled to an affected area Had contact with a sick person who recently traveled to this area Had contact with a person who was diagnosed with COVID-19 How can COVID-19 be prevented? There is no vaccine yet. The best prevention is to not have contact with the virus. The CDC advises that people should not travel to areas where there are COVID-19 outbreaks right now for any reason that is not urgent. To help prevent spreading the infection, wash your hands often, or use an alcohol-basedhand human factors advisor lead. If you are in an area with COVID-19: Wash your hands often. Or use an alcohol-based hand human factors advisor lead often. Only touch your eyes, nose, or mouth with clean hands. Dont have contact with people who are sick. Follow local instructions about being in public. For example, you may be told to not use public transport for a period of time. Stay away from markets that have live or animals. Wash your hands after touching any animals. Don't touch animals that may be sick. Dont share eating or drinking tools with sick people. Dont kiss someone who is sick. Clean surfaces often with disinfectant. If you were in an area with COVID-19 in the last 14 days: Call your healthcare provider. He or she can talk with local health staff to see what action may be needed. Follow all instructions from your provider. Take your temperature every morning and evening for at least 14 days. This is to check for fever. Keep a record of the readings. Keep watch for symptoms of the virus. Tell your provider right away if you have symptoms. If you were in an area with COVID-19 and have a fever or other symptoms: Dont panic. Keep in mind that other illnesses can cause similar symptoms. Stay away from work, school, and public places. Limit physical contact with family members. Don't kiss anyone or share eating or drinking utensils. Clean surfaces you touch with disinfectant. This is to help prevent the virus from spreading. Call your healthcare provider. Explain that you have been exposed to COVID-19 and have symptoms. Do this before going to any hospital. Wait for instructions. Keep in mind that healthcare staff may wear protective equipment such as masks, gowns, gloves, and eye protection. You may be put in a separate room. This is to prevent the possible virus from spreading. Tell the healthcare staff about recent travel. This includes local travel on public transport. Staff may need to find other people you have been in contact with. Follow all instructions the healthcare staff give you. If you have been diagnosed with COVID-19 Follow all instructions from your healthcare provider. Dont leave your home, except to get medical care. Call your healthcare providers office before going. They can prepare and give you instructions. This will help prevent the virus from spreading. Dont go to work, school, or public areas. Dont use public transport or taxis. Stay away from other people in your home. Have them wear face masks around you. Dont share household items or food. Wear a face mask if you can. This includes at home or in a medical facility. Cover your face with a tissue when you cough or sneeze. Throw the tissue away. Wash your hands. Wash your hands often. Caregivers should: Follow all instructions from healthcare staff. Wear a face mask and protective clothing as advised. Wash hands often. Keep track of the sick persons symptoms. Clean surfaces, fabrics, and laundry thoroughly. Keep other people away from the sick person. When to call your healthcare provider Call your healthcare provider: If youve recently traveled and have symptoms If you have been diagnosed with COVID-19 and your symptoms are worse To learn more To find out more about COVID-19, visit the CDC website at www.cdc.gov/coronavirus/2019-ncov/index.html. [employer]. [address] [place] [address], [place] [address]. All rights reserved. This information is not intended as a substitute for professional medical care. Always follow your healthcare professional's instructions. This information has been adapted from [employer] Home Isolation COVID-19 Instructions The following information about Home Isolation is from the CDC Website: https://www.cdc.gov/coronavirus/2019-ncov/hcp/dhwobooe-jwqbdou-lerqmx.html Stay home except to get medical care People who are mildly ill with COVID-19 are able to isolate at home during their illness. You should restrict activities outside your home, except for getting medical care. Do not go to work, school, or public areas. Avoid using public transportation, ride-sharing, or taxis. Separate yourself from other people and animals in your home People: As much as possible, you should stay in a specific room and away from other people in your home. Also, you should use a separate bathroom, if available. Animals: You should restrict contact with pets and other animals while you are sick with COVID-19, just like you would around other people. Although there have not been reports of pets or other animals becoming sick with COVID-19, it is still recommended that people sick with COVID-19 limit contact with animals until more information is known about the virus. When possible, have another member of your household care for your animals while you are sick. If you are si ck with COVID-19, avoid contact with your pet, including petting, snuggling, being kissed or licked, and sharing food. If you must care for your pet or be around animals while you are sick, wash your hands before and after you interact with pets and wear a face mask. Call ahead before visiting your doctor If you have a medical appointment, call the healthcare provider and tell them that you have or may have COVID-19. This will help the healthcare providers office take steps to keep other people from getting infected or exposed. Wear a face mask You should wear a face mask when you are around other people (e.g., sharing a room or vehicle) or pets and before you enter a healthcare providers office. If you are not able to wear a face mask (for example, because it causes trouble breathing), then people who live with you should not stay in the same room with you, or they should wear a face mask if they enter your room. Cover your coughs and sneezes Cover your mouth and nose with a tissue when you cough or sneeze. Throw used tissues in a lined trash can. Immediately wash your hands with soap and water for at least 20 seconds or, if soap and water are not available, clean your hands with an alcohol-based hand human factors advisor lead that contains at least 60% alcohol. Clean your hands often Wash your hands often with soap and water for at least 20 seconds, especially after blowing your nose, coughing, or sneezing; going to the bathroom; and before eating or preparing food. If soap and water are not readily available, use an alcohol-based hand human factors advisor lead with at least 60% alcohol, covering all surfaces of your hands and rubbing them together until they feel dry. Soap and water are the best option if hands are visibly dirty. Avoid touching your eyes, nose, and mouth with unwashed hands. Avoid sharing personal household items You should not share dishes, drinking glasses, cups, eating utensils, towels, or bedding with other people or pets in your home. After using these items, they should be washed thoroughly with soap and water. Clean all high-touch surfaces everyday High touch surfaces include counters, tabletops, doorknobs, bathroom fixtures, toilets, phones, keyboards, tablets, and bedside tables. Also, clean any surface s that may have blood, stool, or body fluids on them. Use a household cleaning spray or wipe, according to the label instructions. Labels contain instructions for safe and effective use of the cleaning product including precautions you should take when applying the product, such as wearing gloves and making sure you have good ventilation during use of the product. Monitor your symptoms Seek prompt medical attention if your illness is worsening (e.g., difficulty breathing).Beforeseeking care, call your healthcare provider and tell them that you have, or are being evaluated for, COVID-19. Put on a face mask before you enter the facility. These steps will help the healthcare providers office to keep other people in the office or waiting room from getting infected or exposed. Ask your healthcare provider to call the local or state health department. Persons who are placed under active monitoring or facilitated self- monitoring should follow instructions provided by their local health department or occupational health professionals, as appropriate. When working with your local health department check their available hours. If you have a medical emergency and need to call 911, notify the dispatch personnel that you have, or are being evaluated for COVID-19. If possible, put on a face mask before emergency medical services arrive. Discontinuing home isolation Patients with confirmed COVID-19 should remain under home isolation precautions until the risk of secondary transmission to others is thought to be low. The decision to discontinue home isolation precautions should be made on a [id number] basis, in consultation with healthcare providers and state and local health departments. Pending Studies at Discharge: No Stand-Alone Forms: My [facility], Smoking Cessation Medications and DC Order Prescriptions: New guaifenesin [Mucinex] 600 mg Tablet Extended Release 12hr 600 mg PO Q12 5 Days Qty: 10 0RF albuterol sulfate 90 mcg/actuation HFA aerosol inhaler 1 inh inhalation Q6H PRN (Reason: shortness of breath or wheezing) Qty: 6.7 0RF Continued glipizide 10 mg tablet 10 mg PO QAM Rx Instructions: TAKE 30 MIN PRIOR TO MEAL atenolol 50 mg tablet 50 mg PO QAM insulin glargine 100 unit/mL (3 mL) insulin pen 22 unit subcut HS cholecalciferol (vitamin D3) [Vitamin D3] 50 mcg (2,000 unit) Capsule 50 mcg PO DAILY clonidine HCl 0.1 mg tablet 0.1 mg PO TID amlodipine 2.5 mg tablet 2.5 mg PO DAILY furosemide 20 mg tablet 20 mg PO QAM Discharge Orders: Discharge Order (Routine); Ordered 09/12/23 Ordered By: Lionel Cantu/Other Patient Handouts: Managing Type 2 Diabetes Admission Data Admit Date/Time: 09/06/23 06:22 Attending Provider: Lionel Hester Admit Provider: Ernestina Power Primary Care Provider: Ernesto Alston Other Providers: Ernestina Power
== END 2023-09-12 17:11 | disposition home or self-care (01) | DRG 177 ==
LOC: ED 03:04 → EDINP 06:22 → 2N 07:36